=== PATIENT | male | born 1945 | race Caucasian/White ===

== ENCOUNTER 2020-08-15 09:56 | Inpatient (IN) | payer OTHER, SELFPAY ==
[2020-08-15] VITALS (20 sets, daily range): BP systolic 75–157; BP diastolic 43–83; PULSE 79–136; RESP 16–26; TEMP 36.1–37.4; O2SAT 90–100; BMI 18.9
--- NOTE | ~2020-08-15 | XR_ITS ---
XR chest 1V portable DATE: 08/15/2020 11:18 INDICATION: Shortness of breath TECHNIQUE: Portable AP chest on 08/15/2020 at 1114 hours COMPARISON: 09/25/2019 AP and lateral chest FINDINGS: Bilateral chronic upper lobe scarring volume loss with prominent bilateral apical capping. There are bilateral chronic upper lobe and right mid lung opacities which may be due to fibrotic tirado ge; pulmonary mass lesions are noted excluded. There is no significant change compared to 09/25/2019.. Bilateral hyperinflation consistent with COPD. Heart size normal. Aortic arch calcification. Right artem Cath again noted with tip at superior cavoatrial junction. Diffuse osteopenia. IMPRESSION: No significant change since 09/25/2019 Reviewed, dictated and finalized at location A. LANCE DIRECTOR
[2020-08-15] MEDS: PANTOPRAZOLE SODIUM IV 40 MG VIAL 80 MG IV PUSH (10:25)
[2020-08-15] MEDS: ONDANSETRON INJ 4 MG/2 ML VIAL IV PUSH (10:25)
[2020-08-15] MEDS: SODIUM CHLORIDE 0.9% IV 1,000 ML 999 ML IV CONT (10:25)
[2020-08-15 10:30] LABS: Mean Corpuscular HGB Conc 31.3 g/dl (32-36); Mean Corpuscular Hemoglobin 33.3 pg (26-34); Mean Corpuscular Volume 106.7 fl (80-100); Mean Platelet Volume 11.5 fl (7.4-10.4); Platelet Count Result 148 k/mm3 (150-375); Red Blood Count 1.35 M/mm3 (4.6-6.20); Red Cell Distribution Width 18.8 % (11.5-14.5); White Blood Count 21.5 K/mm3 (4.5-10.0)
[2020-08-15 10:33] LABS: Hematocrit 14.4 % (42.0-52.0); Hemoglobin 4.5 g/dL (14.0-18.0)
--- NOTE | 2020-08-15 10:39 | ECG_ITS ---
Measurements Intervals [place] Rate: 126 P: NC: 0 QRS: 78 QRSD: 76 T: 244 QT: 271 QTc: 394 Interpretive Statements ATRIAL FIBRILLATION WITH RAPID VENTRICULAR RESPONSE CANNOT RULE OUT SEPTAL INFARCT, AGE INDETERMINATE ST-T WAVE ABNORMALITY IN ANTEROLAT/INF LEADS- CONSIDER ISCHEMIA BASELINE ARTIFACT- II, III, AVF, V3-V6 ABNORMAL ECG Electronically Signed On 08-15-2020 14:26:51 DRIVER ENGINEER by Gordon Jones D.O.
[2020-08-15 10:42] LABS: Band Neutrophils Percent 3 % (0-6); Hypochromasia 2+ (NORMAL); Lymphocytes Absolute Manual 1.72 K/mm3 (1.1-4.5); Metamyelocytes Percent 2 %; Monocytes Absolute Manual 0.64 K/mm3 (0.1-0.90); Monocytes Percent Manual 3 % (3-9); Neutrophils Percent Manual 84 % (46-73); Nucleated Red Blood Cells 2 %; Platelet Estimate Adequate (Adequate); Total Cells Counted 100
[2020-08-15 10:57] LABS: Alanine Aminotransferase 20 U/L (4-50); Alkaline Phosphatase 69 U/L (38-126); Anion Gap 7 mmol/L (8-16); Aspartate Amino Transferase 32 U/L (17-59); Bilirubin,Total 0.2 mg/dL (0.2-1.3); Blood Urea Nitrogen 73 mg/dL (9-20); Calcium 8.4 mg/dL (8.4-10.2); Carbon Dioxide 36 mmol/L (22-30); Chloride 89 mmol/L (98-107); Estimated CRCL calculation 38 ml/min; Estimated Glomerular Filt Rate 54; Glucose 180 mg/dL (75-110); Potassium 4.8 mmol/L (3.4-5.0); Sodium 132 mmol/L (137-145)
--- NOTE | 2020-08-15 11:00 | ED.GENADULT ---
HPI - General Adult General Chief complaint: Shortness of Breath/Dyspnea Stated complaint: SOB Time Seen by Provider: 08/15/20 10:02 History of Present Illness HPI narrative: Patient is a 75-year-old male who presents ER with shortness of breath and weakness. Patient has been more short of breath over the last 2 days. He is chronically O2 dependent on 6 liters nasal cannula. He has history of lung cancer for which he sees oncology at [facility]. Began having dark black stools and was too weak to move so EMS was contacted. Found to be profoundly hypoxic and put on nonrebreather mask. Related Data Home Medications Medication Instructions Recorded Confirmed Centrum Silver 1 tablet PO DAILY 07/26/19 08/15/20 cholecalciferol (vitamin D3) 2,000 unit PO DAILY 07/26/19 02/27/20 thiamine HCl (vitamin B1) [Vitamin 100 mg PO DAILY 07/26/19 02/27/20 B-1] ascorbic acid (vitamin C) 1,000 mg PO DAILY 08/21/19 08/15/20 folic acid 1 mg PO DAILY 08/21/19 08/15/20 albuterol sulfate 2.5 mg INHALATION ONCE ml 08/29/19 02/27/20 dexamethasone 4 mg tablet 4 mg PO BID 02/20/20 02/27/20 fluticasone propionate 50 2 spray NASAL DAILY 02/27/20 02/27/20 mcg/actuation nasal spray,suspension montelukast 10 mg tablet 10 mg PO DAILY 05/21/20 hydrocortisone 08/15/20 Allergies Allergy/AdvReac Type Severity Reaction Status Date / Time No Known Allergies Allergy Verified 08/15/20 10:33 Review of Systems Review of Systems: All systems reviewed & are unremarkable except as noted in HPI and below Constitutional: Constitutional: Denies chills, Denies fever(s) and Reports weakness ENT: Denies nasal congestion and Denies sore throat Cardiovascular: Cardiovascular: Denies chest pain and Denies radiating jaw, neck or arm pain Respiratory: Respiratory: Denies cough, Reports dyspnea and Denies wheezing Gastrointestinal: Gastrointestinal: Reports abdominal pain, Denies nausea and Denies vomiting Comments: Dark black stools PMFSH Past Medical History Medical History Acute respiratory failure with hypoxia and hypercarbia 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 Alcohol withdrawal Former heavy drinker. Anxiety Atrial fibrillation with rapid ventricular response Benign prostatic hyperplasia CHF (congestive heart failure) CHF exacerbation Likely due to diastolic CHF complicated by high-output Chronic anemia With history of blood transfusions. Chronic atrial fibrillation On long-term anticoagulation with rivaroxaban. Chronic respiratory failure with hypoxia and hypercapnia On chronic home O2 8 L Colon polyp Congestive heart failure Last echocardiogram November 2018 demonstrated paradoxical septal wall motion consistent with IVCD or bundle branch block, EF of 50-55% diastolic dysfunction not assessed due to atrial fibrillation, mild right ventricular enlargement, mild enlargement of left atrium, mild mitral valve regurgitation, normal right ventricular systolic pressure 38, dilated IVC without respiratory collapse consistent with elevated right atrial pressure greater than 15 mmHg. Constipation COPD with acute exacerbation (Unknown) Depression End stage COPD Erectile dysfunction Non-small cell lung cancer He is a patient of Dr. Chad Jarvis at [facility]. Status post radiation and palliative chemotherapy. Chest CTs throughout 2019 have showed stable disease. Obstructive sleep apnea (adult) (pediatric) PNA (pneumonia) Pneumonia Psoriasis Shingles Tobacco abuse Surgical History Surgical History History of ankle surgery (~1997) Status post ORIF bilateral ankle fractures. History of appendectomy History of arthroscopy of left knee History of hip surgery Right trochanteric fracture with surgical repair. History of incisional hernia repair History of right hemicolectomy Secondary to large cecal polyp, found to be [place]
[2020-08-15] MEDS: SODIUM CHLORIDE 0.9% IV 250 ML 30 ML IV CONT (12:30)
[2020-08-15] MEDS: TUBING, BLOOD SET 1 EACH XX (12:30)
--- NOTE | 2020-08-15 13:22 | WPDGIPROGNO ---
Progress Note: A&P Additional Plan GI Daniel Consult dictated #[id number] PPI EGD in am [phone] Subjective Date/time seen: 08/15/20 13:22 Objective Data Vital Signs Vital Signs: Vital Signs - 24 hr 08/15/20 10:00 08/15/20 10:16 08/15/20 10:31 Temperature 36.4 C Pulse Rate 124 H 115 H 125 H Respiratory Rate 26 H 17 Blood Pressure 75/43 L 98/58 L Pulse Oximetry 100 98 08/15/20 12:15 08/15/20 12:28 08/15/20 12:45 Temperature 36.7 C 37.0 C Pulse Rate 117 H 113 H 100 Respiratory Rate 26 H 19 16 Blood Pressure 99/59 L 99/59 L 104/57 L Pulse Oximetry 100 100 100 Intake/Output Intake/Output: Intake & Output 08/12/20 08/13/20 08/14/20 08/15/20 23:59 23:59 23:59 23:59 Intake Total 1000 Balance 1000 Meds/Results Medications: Active Medications Generic Name Dose Route Start Last Admin Trade Name Freq PRN Reason Stop Dose Admin Fentanyl Citrate 50 mcg 08/15/20 11:00 Fentanyl Citrate Inj (*Crx) 100 Mcg/2 Ml Vial IV PUSH Q2H PRN Pain Rated 7-10 Pantoprazole Sodium 80 mg/ 500 mls @ 50 mls/hr 08/15/20 11:30 08/15/20 12:15 Dextrose IV CONT 08/18/20 11:31 50 mls/hr .Q10H DOT Administration Sodium Chloride 250 mls @ 30 mls/hr 08/15/20 10:33 08/15/20 12:30 Normal Saline Iv IV CONT 08/15/20 18:52 30 mls/hr .Q8H20M STA Administration Acetaminophen 1,000 mg in 100 mls @ 400 mls/hr 08/15/20 11:00 Ofirmev 1,000 Mg Ivpb IVPB 08/16/20 11:01 Q6H PRN Mild Pain (1-3) or Fever Ondansetron HCl 4 mg 08/15/20 11:00 Ondansetron Inj 4 Mg/2 Ml Vial IV PUSH Q4H PRN Nausea Radiology Results: ITS Impressions Chest X-Ray 08/15/20 11:20 IMPRESSION: No significant change since 09/25/2019 Labs Labs: Laboratory Results - last 24 hr 08/15/20 08/15/20 08/15/20 10:20 10:20 10:20 WBC 21.5 H RBC 1.35 L Hgb 4.5 L* D Hct 14.4 L* MCV 106.7 H MCH 33.3 MCHC 31.3 L RDW 18.8 H Plt Count 148 L D MPV 11.5 H Immature Gran % (Auto) Not Reportable Neut % (Auto) Not Reportable Lymph % (Auto) Not Reportable [place] % (Auto) Not Reportable Eos % (Auto) Not Reportable Baso % (Auto) Not Reportable Lymph # (Auto) Not Reportable [place] # (Auto) Not Reportable Eos # (Auto) Not Reportable Baso # (Auto) Not Reportable Abs Immat Gran (auto) Not Reportable Absolute Neuts (auto) Not Reportable Absolute Nucleated RBC Not Reportable Total Counted 100 Neutrophils % (Manual) 84 H Band Neutrophils % 3 Lymphocytes % (Manual) 8.0 L Monocytes % (Manual) 3 Metamyelocytes % 2 Nucleated RBC % Not Reportable Abs Neuts (Manual) 18.70 H Abs Lymphs (Manual) 1.72 Abs Monocytes (Manual) 0.64 Nucleated RBCs 2 Platelet Estimate Adequate Hypochromasia 2+ PT 14.0 INR 1.0 APTT 32.0 Sodium 132 L Potassium 4.8 Chloride 89 L Carbon Dioxide 36 H Anion Gap 7 L BUN 73 H D Creatinine 1.30 Estim Creat Clear Calc 38 Estimated GFR 54 L Glucose 180 H Calcium 8.4 Total Bilirubin 0.2 AST 32 ALT 20 Alkaline Phosphatase 69 Total Protein 5.0 L Albumin 3.0 L Blood Type Antibody Screen Crossmatch 08/15/20 10:20 WBC RBC Hgb Hct MCV MCH MCHC RDW Plt Count MPV Immature Gran % (Auto) Neut % (Auto) Lymph % (Auto) [place] % (Auto) Eos % (Auto) Baso % (Auto) Lymph # (Auto) [place] # (Auto) Eos # (Auto) Baso # (Auto) Abs Immat Gran (auto) Absolute Neuts (auto) Absolute Nucleated RBC Total Counted Neutrophils % (Manual) Band Neutrophils % Lymphocytes % (Manual) Monocytes % (Manual) Metamyelocytes % Nucleated RBC % Abs Neuts (Manual) Abs Lymphs (Manual) Abs Monocytes (Manual) Nucleated RBCs Platelet Estimate Hypochromasia PT INR APTT Sodium Potassium Chloride Carbon Dioxide Anion Gap BUN Creatinine Estim Creat Clear Calc E
--- NOTE | 2020-08-15 14:57 | ADMGEN ---
This patient, Mundo Robles, was admitted to IMU Room 205-01 at 1404. Patient/family oriented to hospital policies and general routines including ID bracelet, bed and alarms, visiting hours, pain management, procedures, bathroom and other care routines, personal items, smoking policy, room service/diet, and visiting hours. Information on how to activate the Rapid Response Team has been discussed. Patient/Family are encouraged to report perceived risks to care and to ask questions if they do not understand what they are told or what they should do.
--- NOTE | 2020-08-15 15:00 | PM.IMHP ---
H&P: HPI History of Present Illness Date/Time: 08/15/20 15:00 <Kiarra Seaman PA-C - Last Filed: 08/16/20 22:42> Chief complaint: Weakness and shortness of breath. <Kiarra Seaman PA-C - Last Filed: 08/16/20 22:42> Narrative: Mundo Robles is a 75-year-old male with stage IV adenocarcinoma of the lung status post radiation and palliative chemotherapy, severe COPD with chronic respiratory failure on home oxygen, paroxysmal atrial fibrillation on Xarelto, chronic anemia, and ongoing tobacco use who presented to the emergency department earlier today via EMS from home with complaints of shortness of breath and weakness. For the past couple of days or so he has been much more short of breath than at baseline with increasing weakness and occasional lightheadedness. On EMS arrival his SpO2 was 70% on 2 L nasal cannula, however at baseline he typically wears between 6 to 8 L. In any event he was found to be profoundly anemic and with further questioning he does admit that he has been passing dark stools for upwards of 1 month. He denies epigastric and abdominal pain as well as significant GERD symptoms and history of peptic ulcers, however he is quite tender to palpation epigastric region on exam. It is noted that he is on anticoagulation for atrial fibrillation, with his last dose being yesterday. At the time my evaluation he does not have a whole lot of complaints but has not gotten up and about since coming to the hospital so it is difficult for him to say whether not he is feeling any better. 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 <Kiarra Seaman PA-C - Last Filed: 08/16/20 22:42> Review of Systems Review of Systems: Narrative: Twelve systems were reviewed with pertinent positives and negatives as per HPI. He denies fever, chills, and sweats. No syncope or near syncope. He denies chest pain, palpitations, and feelings of racing heart. No pleuritic pain or lower extremity edema. He denies nausea and vomiting. No hematemesis. He is quite thin but states his weight has remained stable. Except as documented, all other systems were reviewed and are negative. 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 Alcohol withdrawal Former heavy drinker. Anxiety Atrial fibrillation with rapid ventricular response Benign prostatic hyperplasia Chronic anemia With history of blood transfusions. Chronic atrial fibrillation On long-term anticoagulation with rivaroxaban. Chronic respiratory failure with hypoxia and hypercapnia On chronic home O2 at 6 to 8 L. Colon polyp Congestive heart failure Last echocardiogram November 2018 demonstrated paradoxical septal wall motion consistent with IVCD or bundle branch block, EF of 50-55% diastolic dysfunction not assessed due to atrial fibrillation, mild right ventricular enlargement, mild enlargement of left atrium, mild mitral valve regurgitation, normal right ventricular systolic pressure 38, dilated IVC without respiratory collapse consistent with elevated right atrial pressure greater than 15 mmHg. Constipation Depression End stage COPD Erectile dysfunction Non-small cell lung cancer He is a patient of Dr. Chad Jarvis at [facility]. Status post radiation and palliative chemotherapy. Chest CTs throughout 2019 have showed stable disease. Obstructive sleep apnea Pneumonia Psoriasis Shingles Tobacco abuse <Kiarra Seaman PA-C - Last Filed: 08/16/20 22:42> Surgical History Surgical History: Surgical History History of ankle surgery (~1997) Status post ORIF bilateral ankle fractures. Hist
--- NOTE | 2020-08-15 16:36 | WPDANESEPP ---
Anes - Eval Pre Procedure Procedure: EGD Date/Time: 08/15/20 16:36 Surgeon: Daniel Pre Op Diagnosis: GI Bleed/Anemia/Hypoxia with COPD Patient Data Age: 75 Gender: M Height: 5 ft 11 in Weight: 61.6 kg Last Vital Signs Temp 99.3 F 08/15/20 15:10 Pulse 112 H 08/15/20 15:10 Resp 20 08/15/20 15:10 BP 105/59 L 08/15/20 15:10 Pulse Ox 100 08/15/20 15:10 Allergies Allergy/AdvReac Type Severity Reaction Status Date / Time No Known Allergies Allergy Verified 08/15/20 10:33 Home Medications Medication Instructions Recorded Confirmed Type Centrum Silver 1 tablet PO DAILY 07/26/19 02/27/20 History cholecalciferol (vitamin D3) 2,000 unit PO DAILY 07/26/19 02/27/20 History thiamine HCl (vitamin B1) [Vitamin 100 mg PO DAILY 07/26/19 02/27/20 History B-1] ascorbic acid (vitamin C) 1 mg PO DAILY 08/21/19 02/27/20 History folic acid 1 mg PO DAILY 08/21/19 02/27/20 History albuterol sulfate 2.5 mg INHALATION ONCE ml 08/29/19 02/27/20 History metoprolol tartrate 50 mg tablet 50 mg PO BID #180 tablet 12/01/19 02/27/20 Rx escitalopram oxalate 10 mg tablet 10 mg PO DAILY 30 Days #90 tablet 01/02/20 02/27/20 Rx dexamethasone 4 mg tablet 4 mg PO BID 02/20/20 02/27/20 History budesonide 0.5 mg/2 mL suspension 0.5 mg INHALATION BID #120 ml 02/27/20 02/27/20 Rx for nebulization fluticasone propionate 50 2 spray NASAL DAILY 02/27/20 02/27/20 History mcg/actuation nasal spray,suspension revefenacin 175 mcg/3 mL solution 175 mcg INHALATION DAILY #90 ml 02/27/20 02/27/20 Rx for nebulization arformoterol 15 mcg/2 mL solution See Rx Instructions .ROUTE 03/26/20 Rx for nebulization .COMPLEX #120 ml magnesium oxide 400 mg PO DAILY #30 cap 04/28/20 Rx diltiazem HCl 120 mg 120 mg PO BID #60 cap 05/12/20 Rx capsule,extended release 12 hr furosemide 40 mg tablet See Rx Instructions .ROUTE 05/12/20 Rx .COMPLEX #30 tablet rivaroxaban 20 mg tablet 20 mg PO QPM #30 tablet 05/12/20 Rx montelukast 10 mg tablet 10 mg PO DAILY 05/21/20 History albuterol sulfate 90 mcg/actuation 2 inhalation INHALATION Q4-6H PRN 05/22/20 Rx aerosol inhaler 90 Days #25.5 gm diphenoxylate-atropine 2.5 1 tablet PO BID PRN #60 tablet 07/07/20 Rx mg-0.025 mg tablet digoxin 125 mcg (0.125 mg) tablet See Rx Instructions .ROUTE 08/08/20 Rx .COMPLEX #30 tablet hydrocortisone 08/15/20 History Laboratory Tests 08/15/20 08/15/20 08/15/20 10:20 10:20 10:20 WBC 21.5 K/mm3 H K/mm3 (4.5-10.0) RBC 1.35 M/mm3 L M/mm3 (4.6-6.20) Hgb 4.5 g/dL L* D g/dL (14.0-18.0) Hct 14.4 % L* % (42.0-52.0) MCV 106.7 fl H fl (80-100) MCH 33.3 pg pg (26-34) MCHC 31.3 g/dl L g/dl (32-36) RDW 18.8 % H % (11.5-14.5) Plt Count 148 k/mm3 L D k/mm3 (150-375) MPV 11.5 fl H fl (7.4-10.4) Immature Gran % (Auto) Not Reportable Neut % (Auto) Not Reportable Lymph % (Auto) Not Reportable [place] % (Auto) Not Reportable Eos % (Auto) Not Reportable Baso % (Auto) Not Reportable Lymph # (Auto) Not Reportable [place] # (Auto) Not Reportable Eos # (Auto) Not Reportable Baso # (Auto) Not Reportable Abs Immat Gran (auto) Not Reportable Absolute Neuts (auto) Not Reportable Absolute Nucleated RBC Not Reportable Total Counted 100 Neutrophils % (Manual) 84 % H % (46-73) Band Neutrophils % 3 % % (0-6) Lymphocytes % (Manual) 8.0 % L % (18-44) Monocytes % (Manual) 3 % % (3-9) Metamyelocytes % 2 % % Nucleated RBC % Not Reportable Abs Neuts (Manual) 18.70 K/mm3 H K/mm3 (1.3-6.7) Abs Lymphs (Manual) 1.72 K/mm3 K/mm3 (1.1-4.5) Abs Monocytes (Manual) 0.64 K/mm3 K/mm3 (0.1-0.90) Nucleat
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
[2020-08-15] MEDS: MELATONIN 5 MG TABLET PO (23:59)
[2020-08-16] VITALS (35 sets, daily range): BP systolic 80–120; BP diastolic 51–69; PULSE 65–144; RESP 14–24; TEMP 36.3–37; O2SAT 91–100
[2020-08-16 00:03] LABS: Hematocrit 17.6 % (42.0-52.0); Hemoglobin 5.7 g/dL (14.0-18.0)
[2020-08-16] MEDS: DIGOXIN INJ 250 MCG/ML 2 ML AMP (*BKC) 125 MCG IV PUSH (04:04)
[2020-08-16] MEDS: LACTATED RINGERS 1,000 ML 150 ML IV CONT (07:20)
--- NOTE | 2020-08-16 07:27 | WPDANESEPPF ---
Anes - Initial Pre Proc Eval Procedure: Operation Date: 08/16/20 07:30 Proposed Procedures p Esophagogastroduodenoscopy/Stent Removal - Prateek Sanchez MD Date/Time: 08/16/20 07:27 Surgeon: Bowen Yi MD Pre Op Diagnosis: GI Bleed/Anemia/Hypoxia with COPD Patient Data Age: 75 Gender: M Height: 1.8 m Weight: 61.6 kg Last Vital Signs Temp 36.8 C 08/16/20 04:50 Pulse 102 H 08/16/20 06:00 Resp 20 08/16/20 04:50 BP 110/60 08/16/20 04:50 Pulse Ox 100 08/16/20 04:50 Allergies Allergy/AdvReac Type Severity Reaction Status Date / Time No Known Allergies Allergy Verified 08/15/20 10:33 Home Medications Medication Instructions Recorded Confirmed Type Centrum Silver 1 tablet PO DAILY 07/26/19 08/15/20 History cholecalciferol (vitamin D3) 2,000 unit PO DAILY 07/26/19 08/15/20 History thiamine HCl (vitamin B1) [Vitamin 100 mg PO DAILY 07/26/19 08/15/20 History B-1] ascorbic acid (vitamin C) 1,000 mg PO DAILY 08/21/19 08/15/20 History folic acid 1 mg PO DAILY 08/21/19 08/15/20 History albuterol sulfate 2.5 mg INHALATION DAILY ml 08/29/19 08/15/20 History metoprolol tartrate 50 mg tablet 50 mg PO BID #180 tablet 12/01/19 08/15/20 Rx escitalopram oxalate 10 mg tablet 10 mg PO DAILY 30 Days #90 tablet 01/02/20 08/15/20 Rx dexamethasone 4 mg tablet 4 mg PO BID 02/20/20 08/15/20 History budesonide 0.5 mg/2 mL suspension 0.5 mg INHALATION BID #120 ml 02/27/20 08/15/20 Rx for nebulization fluticasone propionate 50 2 spray NASAL DAILY 02/27/20 08/15/20 History mcg/actuation nasal spray,suspension revefenacin 175 mcg/3 mL solution 175 mcg INHALATION DAILY #90 ml 02/27/20 08/15/20 Rx for nebulization arformoterol 15 mcg/2 mL solution See Rx Instructions .ROUTE 03/26/20 08/15/20 Rx for nebulization .COMPLEX #120 ml magnesium oxide 400 mg PO DAILY #30 cap 04/28/20 08/15/20 Rx diltiazem HCl 120 mg 120 mg PO BID #60 cap 05/12/20 08/15/20 Rx capsule,extended release 12 hr rivaroxaban 20 mg tablet 20 mg PO QPM #30 tablet 05/12/20 08/15/20 Rx montelukast 10 mg tablet 10 mg PO DAILY 05/21/20 08/15/20 History albuterol sulfate 90 mcg/actuation 2 inhalation INHALATION Q4-6H PRN 05/22/20 08/15/20 Rx aerosol inhaler 90 Days #25.5 gm diphenoxylate-atropine 2.5 1 tablet PO BID PRN #60 tablet 07/07/20 08/15/20 Rx mg-0.025 mg tablet digoxin 125 mcg PO DAILY 08/15/20 08/15/20 History furosemide 40 mg PO DAILY 08/15/20 08/15/20 History hydrocortisone 5 mg PO DAILY 08/15/20 08/15/20 History Laboratory Tests 08/15/20 08/15/20 08/15/20 10:20 10:20 10:20 WBC 21.5 K/mm3 H K/mm3 (4.5-10.0) RBC 1.35 M/mm3 L M/mm3 (4.6-6.20) Hgb 4.5 g/dL L* D g/dL (14.0-18.0) Hct 14.4 % L* % (42.0-52.0) MCV 106.7 fl H fl (80-100) MCH 33.3 pg pg (26-34) MCHC 31.3 g/dl L g/dl (32-36) RDW 18.8 % H % (11.5-14.5) Plt Count 148 k/mm3 L D k/mm3 (150-375) MPV 11.5 fl H fl (7.4-10.4) Immature Gran % (Auto) Not Reportable Neut % (Auto) Not Reportable Lymph % (Auto) Not Reportable [place] % (Auto) Not Reportable Eos % (Auto) Not Reportable Baso % (Auto) Not Reportable Lymph # (Auto) Not Reportable [place] # (Auto) Not Reportable Eos # (Auto) Not Reportable Baso # (Auto) Not Reportable Abs Immat Gran (auto) Not Reportable Absolute Neuts (auto) Not Reportable Absolute Nucleated RBC Not Reportable Total Counted 100 Neutrophils % (Manual) 84 % H % (46-73) Band Neutrophils % 3 % % (0-6) Lymphocytes % (Manual) 8.0 % L % (18-44) Monocytes % (Manual) 3 % % (3-9) Metamyelocytes % 2 % % Nucleated RBC % Not Reportable Abs Neuts (Manual) 18.70 K/mm3 H K/mm3 (1.3-6.7) A
[2020-08-16 07:31] LABS: Hemoglobin A1C 5.5 % (<5.7)
--- NOTE | 2020-08-16 07:31 | WPDANESEFPP ---
Anes - Eval Final PreProcedure Day of Procedure 08/16/20 07:31 Patient weight: thin Heart: irregular rhythm Lungs: clear to auscultation and decreased breath sounds Airway: Mallampati scale class III Neurological: alert and oriented Last oral intake: >/= 8 hours ASA classification: IV Emergent: yes Anesthetic plan: proceed Anesthesia type and monitoring: general GIVS and standard monitoring Informed Consent: The patient's anesthetic plan and its attendant risks and benefits were discussed with the patient/family/POA. Questions were solicited and answers provided to the satisfaction of the patient/family/POA.
--- NOTE | 2020-08-16 07:38 | WPDGIPROGNO ---
Progress Note: A&P Additional Plan GI [facility] 16 Aug 2020 No abdominal pain, nausea or vomiting. Patient had large bloody BM @ 7 am VSS soft/NT Hct (8 pm 08-15-2020) 18 ASSESSMENT AND PLAN: A. Acute on chronic blood loss anemia with melena and macrocytosis on Xarelto and hydrocortisone: - Concern for upper GI source of bleeding with patient on steroids and no GI prophylaxis - Possibilities include ulceration, AVM, malignancy and varices given his drinking history - No LFTs are available - Follow H and H and transfuse as needed - Patient had 2 units PRBC since last Hct and repeat is pending - Acid suppression with PPI - Avoid aspirin, nonsteroidals and anticoagulants - EGD this am B. Macrocytosis: - Possibly due to alcohol - B12 and folate pending Further recommendations after EGD. Thanks, [facility] [phone] Subjective Date/time seen: 08/16/20 07:38 Objective Data Vital Signs Vital Signs: Vital Signs - 24 hr 08/15/20 10:00 08/15/20 10:16 08/15/20 10:31 Temperature 36.4 C Pulse Rate 124 H 115 H 125 H Pulse Rate [Bilateral Pedal (Dorsalis Pedis) Palpation] Respiratory Rate 26 H 17 Blood Pressure 75/43 L 98/58 L Pulse Oximetry 100 98 08/15/20 12:15 08/15/20 12:28 08/15/20 12:45 Temperature 36.7 C 37.0 C Pulse Rate 117 H 113 H 100 Pulse Rate [Bilateral Pedal (Dorsalis Pedis) Palpation] Respiratory Rate 26 H 19 16 Blood Pressure 99/59 L 99/59 L 104/57 L Pulse Oximetry 100 100 100 08/15/20 13:45 08/15/20 13:50 08/15/20 13:52 Temperature 36.7 C 36.7 C 36.7 C Pulse Rate 115 H 111 H 111 H Pulse Rate [Bilateral Pedal (Dorsalis Pedis) Palpation] Respiratory Rate 16 16 16 Blood Pressure 111/61 111/61 111/61 Pulse Oximetry 99 98 99 08/15/20 14:48 08/15/20 15:10 08/15/20 16:00 Temperature 37.4 C 37.4 C Pulse Rate 112 H 110 H Pulse Rate [Bilateral Pedal (Dorsalis Pedis) Palpation] Respiratory Rate 20 20 Blood Pressure 105/59 L 105/59 L Pulse Oximetry 100 08/15/20 17:16 08/15/20 17:32 08/15/20 18:00 Temperature 36.2 C L 36.1 C L Pulse Rate 126 H 116 H 136 H Pulse Rate [Bilateral Pedal (Dorsalis Pedis) Palpation] Respiratory Rate 22 H 20 Blood Pressure 101/58 L 122/80 Pulse Oximetry 100 100 08/15/20 18:32 08/15/20 19:34 08/15/20 20:00 Temperature 37.1 C 37.0 C 36.3 C L Pulse Rate 116 H 115 H 114 H Pulse Rate [Bilateral Pedal (Dorsalis Pedis) Palpation] Respiratory Rate 20 20 20 Blood Pressure 105/55 L 118/83 157/77 H Pulse Oximetry 100 100 100 08/15/20 22:00 08/15/20 22:55 08/16/20 00:00 Temperature 36.3 C L Pulse Rate 112 H 116 H 138 H Pulse Rate [Bilateral Pedal (Dorsalis Pedis) Palpation] Respiratory Rate 22 H 18 Blood Pressure 117/57 L Pulse Oximetry 98 100 08/16/20 00:49 08/16/20 01:36 08/16/20 01:53 Temperature 36.4 C 36.9 C Pulse Rate 125 H 133 H Pulse Rate [Bilateral Pedal (Dorsalis Pedis) Palpation] 112 H Respiratory Rate 18 16 Blood Pressure 117/68 97/60 L Pulse Oximetry 100 100 08/16/20 02:00 08/16/20 03:27 08/16/20 03:50 Temperature 36.8 C 36.8 C Pulse Rate 123 H 109 H 117 H Pulse Rate [Bilateral Pedal (Dorsalis Pedis) Palpation] Respiratory Rate 20 20 Blood Pressure 117/69 104/61 Pulse Oximetry 100 100 08/16/20 04:00 08/16/20 04:04 08/16/20 04:50 Temperature 36.8 C Pulse Rate 114 H 124 H 114 H Pulse Rate [Bilateral Pedal (Dorsalis Pedis) Palpation] 114 H Respiratory Rate 20 Blood Pressure 104/61 110/60 Pulse Oximetry 100 100 08/16/20 06:00 Temperature Pulse Rate 102 H Pulse Rate [Bilateral Pedal (Dorsalis Pedis) Palpation] Respiratory Rate Blood Pressure Pulse Oximetry Intake/Output Intake/Output: Intake & Output 08/13/20 08/14/20 08/15/20 08/16/20 23:59 23:59 23:59 23:59 Intake Total 1700 700 Output Total 150 150 Balance 1550 550 Meds/Results Medications: Active Medications Generic Name Dose Route Start Last Admin Trade Name Freq PRN Reason St
[2020-08-16] MEDS: SIMETHICONE ORAL SUSPENSION 20 MG/0.3 ML 30 ML BOTTLE PO (08:07)
--- NOTE | 2020-08-16 08:32 | PM.OP ---
Procedure Note - Brief Procedure Note - Brief Date of procedure: 08/16/20 Pre-op diagnosis: GI Bleed/Anemia/Hypoxia with COPD Surgeon: PRATEEK SANCHEZ MD, FACG, FACP UPPER ENDOSCOPY 08-16-2020 INDICATION: Acute on chronic blood loss anemia with melena and macrocytosis on Xarelto and hydrocortisone. 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 SEDATION: Per anesthesia With the patient in the left lateral decubitus position, the [place] upper endoscope was used to easily intubate the patient?s esophagus and advanced to the third portion of the duodenum. Careful inspection of the mucosa was made upon insertion and withdrawal of the endoscope with retroflexion in the stomach. FINDINGS: Esophagus: SC Jx at 45 cm. Esophagus is normal. No varix, esophagitis, stricture, mass or Charles?s. Stomach: Fundus: had clot with what appeared to be active bleed. The clot was removed with a net and active bleed noted. Epi 1 cc x 5 injected circumferentially around where the bleeding appeared to originate. There was slowing of the bleeding and I was able to suction the blood and noted an actively bleeding Dielafoy lesion. This lesion was treated with the placement of a single Endoclip with complete cessation of bleeding. The lesion was observed with washing for minutes without rebleed. Body and antrum normal. No ulceration, erosion, inflammation, AVM or malignancy. Duodenum: Normal in the bulb, second and third portion. No complications. EBL: minimal. Implant of single Endoclip. ASSESSMENT AND PLAN: A. Acute on chronic blood loss anemia with melena and macrocytosis on Xarelto and hydrocortisone: - Secondary to gastric Dieulafoy lesion treated with Epi and Endoclip with cessation of bleed - Follow H and H and transfuse as needed - Patient had 2 units PRBC since last Hct and repeat is pending (total of 4 U PRBC so far) - Acid suppression with PPI; continue drip through today - Avoid aspirin, nonsteroidals and anticoagulants - Clears only today; advance am 08-17-2020 if stable B. Macrocytosis: - Possibly due to alcohol - B12 and folate pending Prateek Sanchez M.D. [phone]
[2020-08-16 08:40] LABS: Folic Acid > 20.0 ng/mL (2.76->20)
[2020-08-16 09:11] LABS: Digoxin 1.1 ng/mL (0.8-2.0)
[2020-08-16] MEDS: THIAMINE HCL 100 MG TABLET PO (09:43)
[2020-08-16] MEDS: FOLIC ACID 1 MG TABLET PO (09:44)
[2020-08-16] MEDS: MULTIVITAMINS /C LUTEIN (CENTRUM SILVER) TABLET *BKC 1 TAB PO (09:44)
[2020-08-16] MEDS: FUROSEMIDE 40 MG TABLET PO (09:44)
[2020-08-16] MEDS: FLUTICASONE PROPIONATE 0.05% NA SPR 16 GM BTL (*BKC) 2 SPRAY NASAL (09:44)
[2020-08-16] MEDS: MAGNESIUM OXIDE 400 MG TABLET PO (09:44)
[2020-08-16] MEDS: MONTELUKAST SODIUM 10 MG TABLET PO (09:44)
[2020-08-16] MEDS: ESCITALOPRAM OXALATE 10 MG TABLET PO (09:45)
[2020-08-16] MEDS: CHOLECALCIFEROL 1,000 UNITS TABLET 2000 UNITS PO (09:45)
[2020-08-16] MEDS: DIGOXIN TAB 125 MCG TABLET PO (09:45)
[2020-08-16] MEDS: DEXAMETHASONE 4 MG TABLET PO ×2 (09:46→16:48)
[2020-08-16] MEDS: HYDROCORTISONE 5 MG TABLET PO (09:46)
[2020-08-16] MEDS: ASCORBIC ACID 500 MG TABLET 1000 MG PO (09:46)
[2020-08-16] MEDS: ALBUTEROL SULFATE NEB 2.5 MG/3 ML INH INHALATION (09:56)
[2020-08-16] MEDS: BUDESONIDE RESPULE NEB 0.5 MG/2 ML AMP INHALATION ×2 (09:57→21:42)
[2020-08-16 10:07] LABS: Hematocrit 21.6 % (42.0-52.0); Hemoglobin 7.4 g/dL (14.0-18.0); Mean Corpuscular HGB Conc 34.3 g/dl (32-36); Mean Corpuscular Hemoglobin 31.1 pg (26-34); Mean Corpuscular Volume 90.8 fl (80-100); Mean Platelet Volume 10.7 fl (7.4-10.4); Platelet Count Result 109 k/mm3 (150-375); Red Blood Count 2.38 M/mm3 (4.6-6.20); Red Cell Distribution Width 17.4 % (11.5-14.5); White Blood Count 20.5 K/mm3 (4.5-10.0)
[2020-08-16 10:30] LABS: Alanine Aminotransferase 16 U/L (4-50); Albumin Level 2.4 g/dL (3.5-5.1); Alkaline Phosphatase 55 U/L (38-126); Anion Gap 1 mmol/L (8-16); Aspartate Amino Transferase 43 U/L (17-59); Bilirubin,Total 0.2 mg/dL (0.2-1.3); Blood Urea Nitrogen 77 mg/dL (9-20); Calcium 7.9 mg/dL (8.4-10.2); Carbon Dioxide 37 mmol/L (22-30); Chloride 94 mmol/L (98-107); Estimated CRCL calculation 34 ml/min; Estimated Glomerular Filt Rate 46; Glucose 148 mg/dL (75-110); Magnesium 1.9 mg/dL (1.6-2.3); Potassium 4.7 mmol/L (3.4-5.0); Sodium 132 mmol/L (137-145)
[2020-08-16 11:10] LABS: Iron 79 ug/dL (49-181)
[2020-08-16 11:19] LABS: Percent Iron Saturation 28 % (20-50)
[2020-08-16] MEDS: METOPROLOL TARTRATE 50 MG TAB PO ×2 (11:34→21:44)
--- NOTE | 2020-08-16 17:12 | PM.IMPN ---
Progress Note: A&P Assessment and Plan (1) Profound anemia: Code(s): D64.9 - Anemia, unspecified Status: Acute Assessment and Plan: 08/16/20 17:12 Patient is 75-year-old male with a history of stage IV adenocarcinoma of the lung patient is seen at the [facility] status post radiation and palliative chemotherapy, atrial fibrillation for which patient taking Xarelto, patient with severe COPD with respiratory failure on home oxygen patient had been tired fatigue with complaint melena he presented emergency department was found to have profound anemia with hemoglobin of 4.5 patient was given 2 units PRBC emergently and patient was seen by GI and and had a EGD which showed blood clot which was removed and showed active bleeding it was treated with epinephrine upon close evaluation there was slow bleed from Dielafoy lesion and the lesion was treated by placing single Endoclip which resolve the bleeding. Patient has received total of 4 units of pack RBC his current H&H is 7.4 will monitor q.6, patient is placed on PPI, Xarelto is on hold, will avoid NSAIDs however patient is on Decadron for his chemotherapy we have consulted oncologist further recommendation, will continue to monitor appreciate GI and oncologist (2) GI bleed: Code(s): K92.2 - Gastrointestinal hemorrhage, unspecified Status: Acute Assessment and Plan: Plan is above (3) Atrial fibrillation with rapid ventricular response: Code(s): I48.91 - Unspecified atrial fibrillation Status: Acute Assessment and Plan: Rate is controlled will hold Xarelto (4) Acute and chronic respiratory failure with hypoxia: Code(s): J96.21 - Acute and chronic respiratory failure with hypoxia Status: Acute Assessment and Plan: Clinically stable with profound anemia will monitor (5) End stage COPD: Code(s): J44.9 - Chronic obstructive pulmonary disease, unspecified Status: Acute Assessment and Plan: Will continue updraft and oxygen (6) Congestive heart failure: Code(s): I50.9 - Heart failure, unspecified Status: Inactive Assessment and Plan: Clinically stable does not appear volume overloaded patient is received 4 units of pack RBC will monitor closely (7) Tobacco abuse: Code(s): Z72.0 - Tobacco use Status: Chronic Assessment and Plan: Will encourage stop smoking (8) Leukocytosis: Code(s): D72.829 - Elevated white blood cell count, unspecified Status: Acute Assessment and Plan: Most likely due to stress, on Decadron will monitor (9) Non-small cell lung cancer: Qualifiers: Laterality: unspecified laterality Qualified Code(s): C34.90 - Malignant neoplasm of unspecified part of unspecified bronchus or lung Code(s): C34.90 - Malignant neoplasm of unspecified part of unspecified bronchus or lung Status: Chronic Assessment and Plan: Patient is seen by oncologist and radiation and palliative therapy Additional Plan The patient has been admitted to the hospitalist service for further evaluation of profound anemia, felt to be secondary to an upper GI bleed with reports of dark stools and significantly elevated BUN. He is currently receiving 2 units of packed red blood cells and we will repeat hemoglobin and hematocrit thereafter. He has been started on a Protonix drip and Dr. Sanchez (gastroenterology) has been consulted for his expert opinion. I suspect he will be taken for EGD in the morning thus he will be NPO after midnight. His white count is quite elevated at 21 and he gives no history to suggest underlying infection. He is on dexamethasone daily, which could be the culprit. May be reactive as well. Will check urinalysis for completeness sake and continue to monitor for now. We will need to monitor his volume status closely while being transfused. His heart rate has improved with blood transfusion and we will co
[2020-08-16 20:25] LABS: Hematocrit 19.5 % (42.0-52.0); Hemoglobin 6.6 g/dL (14.0-18.0)
[2020-08-16] MEDS: MELATONIN 5 MG TABLET PO (21:44)
[2020-08-17] VITALS (19 sets, daily range): BP systolic 80–99; BP diastolic 51–60; PULSE 54–94; RESP 16–18; TEMP 36.2–37.1; O2SAT 93–100
[2020-08-17 02:39] LABS: Hematocrit 22.8 % (42.0-52.0); Hemoglobin 7.7 g/dL (14.0-18.0)
[2020-08-17 06:05] LABS: Basophils Percent Auto 0.1 % (0.2-1.2); Hematocrit 23.7 % (42.0-52.0); Hemoglobin 7.7 g/dL (14.0-18.0); Immature Granulocyte Absolute 0.16 K/mm3 (0.00-0.031); Immature Granulocyte Percent A 1.5 % (0-0.5); Lymphocytes Absolute Auto 0.38 K/mm3 (0.9-3.2); Lymphocytes Percent Auto 3.6 % (18.3-44.2); Mean Corpuscular HGB Conc 32.5 g/dl (32-36); Mean Corpuscular Hemoglobin 29.5 pg (26-34); Mean Corpuscular Volume 90.8 fl (80-100); Mean Platelet Volume 11.5 fl (7.4-10.4); Monocytes Absolute Auto 0.2 K/mm3 (0.1-0.6); Monocytes Percent Auto 2.2 % (2.6-8.5); Neutrophils Absolute Auto 9.7 K/mm3 (1.3-6.7); Neutrophils Percent Auto 92.6 % (45.5-73.1); Nucleated Red Blood Cells Absolute Auto 0.2 K/mm3 (0.0-0.012); Nucleated Red Blood Cells Perc 1.6 % (0.0-0.2); Platelet Count Result 151 k/mm3 (150-375); Red Blood Count 2.61 M/mm3 (4.6-6.20); White Blood Count 10.5 K/mm3 (4.5-10.0)
[2020-08-17 06:48] LABS: Alanine Aminotransferase 16 U/L (4-50); Albumin Level 2.5 g/dL (3.5-5.1); Alkaline Phosphatase 56 U/L (38-126); Anion Gap 1.99999 mmol/L (8-16); Aspartate Amino Transferase 43 U/L (17-59); Bilirubin,Total 0.3 mg/dL (0.2-1.3); Blood Urea Nitrogen 56 mg/dL (9-20); Calcium 8.4 mg/dL (8.4-10.2); Carbon Dioxide > 40 mmol/L (22-30); Chloride 92 mmol/L (98-107); Estimated CRCL calculation 51 ml/min; Estimated Glomerular Filt Rate > 60; Glucose 140 mg/dL (75-110); Potassium 4.1 mmol/L (3.4-5.0); Sodium 134 mmol/L (137-145)
--- NOTE | 2020-08-17 07:15 | WPDANESPN ---
Anes - Prog Note Post-Op Date/Time: 08/17/20 07:15 Cardiovascular status: normal (patient received 4 units PRBC, hgb 7.7. monitoring H/H) Respiratory status: normal (on baseline O2. ) Airway patency: baseline Mental status: baseline Post-Op hydration status: normal Vital Signs: Last Vital Signs Temp 36.4 C L 08/17/20 04:00 Pulse 76 08/17/20 06:00 Resp 16 08/17/20 04:00 BP 93/52 L 08/17/20 04:00 Pulse Ox 100 08/17/20 04:00 Pain Score (VAS): 0 I/O: Intake & Output 08/16/20 08/16/20 08/17/20 15:59 23:59 07:59 Intake Total 806 248 1326 Output Total 1000 725 Balance -330 -485 1037 Laboratory Tests 08/17/20 05:03 08/15/20 08/16/20 08/16/20 10:20 06:34 06:34 WBC RBC Hgb Hct MCV MCH MCHC RDW Plt Count MPV Immature Gran % (Auto) Neut % (Auto) Lymph % (Auto) [place] % (Auto) Eos % (Auto) Baso % (Auto) Lymph # (Auto) [place] # (Auto) Eos # (Auto) Baso # (Auto) Abs Immat Gran (auto) Absolute Neuts (auto) Absolute Nucleated RBC Nucleated RBC % Sodium Potassium Chloride Carbon Dioxide Anion Gap BUN Creatinine Estim Creat Clear Calc Estimated GFR Glucose Hemoglobin A1c 5.5 Calcium Magnesium Iron TIBC % Saturation Ferritin Total Bilirubin AST ALT Alkaline Phosphatase Total Protein Albumin Vitamin B12 Folate Digoxin 1.1 Blood Type O Positive Antibody Screen Negative Crossmatch See Detail 08/16/20 08/16/20 08/16/20 06:34 09:57 09:57 WBC 20.5 H RBC 2.38 L Hgb 7.4 L Hct 21.6 L MCV 90.8 D MCH 31.1 D MCHC 34.3 RDW 17.4 H Plt Count 109 L MPV 10.7 H Immature Gran % (Auto) Neut % (Auto) Lymph % (Auto) [place] % (Auto) Eos % (Auto) Baso % (Auto) Lymph # (Auto) [place] # (Auto) Eos # (Auto) Baso # (Auto) Abs Immat Gran (auto) Absolute Neuts (auto) Absolute Nucleated RBC Nucleated RBC % Sodium 132 L Potassium 4.7 Chloride 94 L Carbon Dioxide 37 H Anion Gap 1 L BUN 77 H Creatinine 1.50 H Estim Creat Clear Calc 34 Estimated GFR 46 L Glucose 148 H Hemoglobin A1c Calcium 7.9 L Magnesium 1.9 Iron TIBC % Saturation Ferritin Total Bilirubin 0.2 AST 43 ALT 16 Alkaline Phosphatase 55 Total Protein 4.0 L Albumin 2.4 L Vitamin B12 890.0 Folate > 20.0 H Digoxin Blood Type Antibody Screen Crossmatch 08/16/20 08/16/20 08/17/20 09:57 20:10 02:31 WBC RBC Hgb 6.6 L* 7.7 L Hct 19.5 L* 22.8 L MCV MCH MCHC RDW Plt Count MPV Immature Gran % (Auto) Neut % (Auto) Lymph % (Auto) [place] % (Auto) Eos % (Auto) Baso % (Auto) Lymph # (Auto) [place] # (Auto) Eos # (Auto) Baso # (Auto) Abs Immat Gran (auto) Absolute Neuts (auto) Absolute Nucleated RBC Nucleated RBC % Sodium Potassium Chloride Carbon Dioxide Anion Gap BUN Creatinine Estim Creat Clear Calc Estimated GFR Glucose Hemoglobin A1c Calcium Magnesium Iron 79 TIBC 283 % Saturation 28 Ferritin 93.00 Total Bilirubin AST ALT Alkaline Phosphatase Total Protein Albumin Vitamin B12 Folate Digoxin Blood Type Antibody Screen Crossmatch 08/17/20 08/17/20 05:03 05:03 WBC Pending RBC Pending Hgb Pending Hct Pending MCV Pending MCH Pending MCHC Pending RDW Pending Plt Count Pending MPV Pending Immature Gran % (Auto) Pending Neut % (Auto) Pending Lymph % (Auto) Pending [place] % (Auto) Pending Eos % (Auto) Pending Baso % (Auto) Pending Lymph # (Auto) Pending [place] # (Auto) Pending Eos # (Auto) Pending Baso # (Auto) Pending Abs Immat Gran (auto) Pending Absolute Neuts (auto) Pendi
[2020-08-17] MEDS: MULTIVITAMINS /C LUTEIN (CENTRUM SILVER) TABLET *BKC 1 TAB PO (10:13)
[2020-08-17] MEDS: THIAMINE HCL 100 MG TABLET PO (10:13)
[2020-08-17] MEDS: FUROSEMIDE 40 MG TABLET PO (10:14)
[2020-08-17] MEDS: FOLIC ACID 1 MG TABLET PO (10:14)
[2020-08-17] MEDS: METOPROLOL TARTRATE 50 MG TAB PO ×2 (10:14→20:30)
[2020-08-17] MEDS: MAGNESIUM OXIDE 400 MG TABLET PO (10:14)
[2020-08-17] MEDS: MONTELUKAST SODIUM 10 MG TABLET PO (10:14)
[2020-08-17] MEDS: ESCITALOPRAM OXALATE 10 MG TABLET PO (10:15)
[2020-08-17] MEDS: FLUTICASONE PROPIONATE 0.05% NA SPR 16 GM BTL (*BKC) 2 SPRAY NASAL (10:15)
[2020-08-17] MEDS: DIGOXIN TAB 125 MCG TABLET PO (10:15)
[2020-08-17] MEDS: CHOLECALCIFEROL 1,000 UNITS TABLET 2000 UNITS PO (10:15)
[2020-08-17] MEDS: ASCORBIC ACID 500 MG TABLET 1000 MG PO (10:15)
[2020-08-17] MEDS: HYDROCORTISONE 5 MG TABLET PO (10:16)
[2020-08-17] MEDS: DEXAMETHASONE 4 MG TABLET PO ×2 (10:16→17:34)
[2020-08-17] MEDS: BUDESONIDE RESPULE NEB 0.5 MG/2 ML AMP INHALATION (10:44)
[2020-08-17] MEDS: ALBUTEROL SULFATE NEB 2.5 MG/3 ML INH INHALATION (10:45)
--- NOTE | 2020-08-17 11:19 | WPDONCCN ---
Assessment and Plan Assessment and plan (1) GI bleed: Code(s): K92.2 - Gastrointestinal hemorrhage, unspecified Status: Acute Assessment and Plan: due to upper GI lesion successfully treated by EGD (2) Non-small cell lung cancer: Qualifiers: Laterality: unspecified laterality Qualified Code(s): C34.90 - Malignant neoplasm of unspecified part of unspecified bronchus or lung Code(s): C34.90 - Malignant neoplasm of unspecified part of unspecified bronchus or lung Status: Chronic Assessment and Plan: no further need of oncology or hematology interventions during this admission He should f/u with Dr. Jarvis as scheduled. I will contact Dr. Jarvis to update him on his patient (3) Anemia: Qualifiers: Anemia type: unspecified type Qualified Code(s): D64.9 - Anemia, unspecified Code(s): D64.9 - Anemia, unspecified Status: Chronic Assessment and Plan: improved due to GI bleeding no evidence of hemolysis or BM disorder I would send him on [id number] bid to improve his H/H can be discharge from my perspective HPI Data of Consult Date/Time: 08/17/20 11:19 Requesting Physician: Bowen Yi MD Primary Care Provider: Daniel Jeffery MD Consult Narrative Narrative: Mundo Robles is a 75 year old male with stage IV lung cancer undergoing maintenance chemo by Dr. Jarvis. He presented with symptomatic anemia along with melena. Dr. Sanchez performed EGD on Tuesday revealing bleeding Duelofoy lesion in the upper GI tract. He sclerosed the lesion. At this consultation, he is wanting to go home. He feels great and improved. Review of Systems Review of Systems: All systems reviewed & are unremarkable except as noted in HPI and below Constitutional: Constitutional: Denies anorexia, Denies fatigue, Denies fever(s), Denies malaise, Denies night sweats, Reports snoring, Denies weakness and Denies weight loss Eyes: Eyes: Denies blurry vision ENT: Denies dysphagia, Denies epistaxis, Denies mouth lesions, Denies mouth pain, Denies odynophagia, Denies disequilibrium and Denies sore throat Cardiovascular: Cardiovascular: Denies chest pain, Denies leg edema and Denies dyspnea Respiratory: Respiratory: Reports chest congestion, Reports cough, Reports dyspnea and Reports wheezing Gastrointestinal: Gastrointestinal: Denies abdominal pain, Denies constipation, Denies dysphagia, Denies diarrhea, Denies nausea, Denies odynophagia and Denies vomiting Genitourinary: Genitourinary: Denies hematuria and Denies dysuria Musculoskeletal: Musculoskeletal: Denies myalgias, Denies arthralgias and Denies muscle weakness Integumentary/Breasts: Skin/Breast: Denies rash Neurologic: Denies confusion, Denies disequilibrium and Denies weakness Psychiatric: Psychiatric: Denies anxiety, Denies confusion and Denies depression Endocrine: Endocrine: Denies fatigue Hematologic/Lymphatic: Hematologic/Lymphatic: Denies easy bleeding, Reports easy bruising and Denies lymphadenopathy [facility] Past Medical History Medical History 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 Alcohol withdrawal Former heavy drinker. Anxiety Atrial fibrillation with rapid ventricular response Benign prostatic hyperplasia Chronic anemia With history of blood transfusions. Chronic atrial fibrillation On long-term anticoagulation with rivaroxaban. Chronic respiratory failure with hypoxia and hypercapnia On chronic home O2 at 6 to 8 L. 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
--- NOTE | 2020-08-17 15:32 | PM.IMPN ---
Progress Note: A&P Assessment and Plan (1) Profound anemia: Code(s): D64.9 - Anemia, unspecified Status: Acute Assessment and Plan: 08/17/20 15:32 Patient is 75-year-old male with a history of stage IV adenocarcinoma of the lung patient is seen at the [facility] status post radiation and palliative chemotherapy, atrial fibrillation for which patient taking Xarelto, patient with severe COPD with respiratory failure on home oxygen patient had been tired fatigue with complaint melena he presented emergency department was found to have profound anemia with hemoglobin of 4.5 patient was given 2 units PRBC emergently and patient was seen by GI and and had a EGD which showed blood clot which was removed and showed active bleeding it was treated with epinephrine upon close evaluation there was slow bleed from Dielafoy lesion and the lesion was treated by placing single Endoclip which resolve the bleeding. Patient has received total of 4 units of pack RBC his current H&H is 7.4 will monitor q.6, patient is placed on PPI, Xarelto is on hold, will avoid NSAIDs however patient is on Decadron for his chemotherapy we have consulted oncologist further recommendation, will continue to monitor appreciate GI and oncologist. today patient stats feeling better denies any bleeding and wants to go home, patient started on oral PPI, iron, will monitor 1 more day and monitor cbc, patient is seen by oncologist no further workup is needed, patient will be seen by GI and further recommendation to follow. if clinically stable, will discharge home tomorrow. (2) GI bleed: Code(s): K92.2 - Gastrointestinal hemorrhage, unspecified Status: Acute Assessment and Plan: Plan is above (3) Atrial fibrillation with rapid ventricular response: Code(s): I48.91 - Unspecified atrial fibrillation Status: Acute Assessment and Plan: Rate is controlled will hold Xarelto (4) Acute and chronic respiratory failure with hypoxia: Code(s): J96.21 - Acute and chronic respiratory failure with hypoxia Status: Acute Assessment and Plan: Clinically stable with profound anemia will monitor (5) End stage COPD: Code(s): J44.9 - Chronic obstructive pulmonary disease, unspecified Status: Acute Assessment and Plan: Will continue updraft and oxygen (6) Congestive heart failure: Code(s): I50.9 - Heart failure, unspecified Status: Inactive Assessment and Plan: Clinically stable does not appear volume overloaded patient is received 4 units of pack RBC will monitor closely (7) Tobacco abuse: Code(s): Z72.0 - Tobacco use Status: Chronic Assessment and Plan: Will encourage stop smoking (8) Leukocytosis: Code(s): D72.829 - Elevated white blood cell count, unspecified Status: Acute Assessment and Plan: Most likely due to stress, on Decadron will monitor (9) Non-small cell lung cancer: Qualifiers: Laterality: unspecified laterality Qualified Code(s): C34.90 - Malignant neoplasm of unspecified part of unspecified bronchus or lung Code(s): C34.90 - Malignant neoplasm of unspecified part of unspecified bronchus or lung Status: Chronic Assessment and Plan: Patient is seen by oncologist and radiation and palliative therapy Subjective Date/time seen: 08/17/20 15:32 Patient is 75-year-old male with a history of stage IV adenocarcinoma of the lung patient is seen at the [facility] status post radiation and palliative chemotherapy, atrial fibrillation for which patient taking Xarelto, patient with severe COPD with respiratory failure on home oxygen patient had been tired fatigue with complaint melena he presented emergency department was found to have profound anemia with hemoglobin of 4.5 patient was given 2 units PRBC emergently and patient was seen by GI and and had a EGD which showed blood clot which was
--- NOTE | 2020-08-17 17:33 | PC.NURSE ---
This patient, Mundo Robles, was transferred to [facility] on 08/17/20 at 1710. Personal belongings sent with patient. Report given to Celena CHAU. Appropriate documentation sent with patient.
--- NOTE | 2020-08-17 18:54 | PC.NURSE ---
Transfer received from IMU room 205 to room 250.
--- NOTE | 2020-08-17 19:55 | WPDGIPROGNO ---
Progress Note: A&P Additional Plan KEITH Sanchez 17 Aug 2020 No AP, N, V, BRBPR, melena. Lia po VSS soft/NT Hct 24. B12 890, folate >20, Ferritin 93, Fe 79, TIBC 283, %sat 28. LFT normal ASSESSMENT AND PLAN: A. Acute on chronic blood loss anemia with melena and macrocytosis on Xarelto and hydrocortisone: - Secondary to gastric Dieulafoy lesion treated with Epi and Endoclip with cessation of bleed - No further active bleed - Follow H and H and transfuse as needed - Patient had 2 units PRBC since last Hct and repeat is pending (total of 4 U PRBC so far) - Acid suppression with PPI-> po Protonix 40 mg po daily x 1 month - Avoid aspirin, nonsteroidals and anticoagulants B. Macrocytosis: - Possibly due to alcohol - B12 and folate normal No further GI recommendations. Dispo per others. Patient can follow-up with GI prn. Prateek Sanchez M.D. [phone] Subjective Date/time seen: 08/17/20 19:55 Objective Data Vital Signs Vital Signs: Vital Signs - 24 hr 08/16/20 20:00 08/16/20 21:32 08/16/20 21:44 Temperature 36.3 C L Pulse Rate 84 85 79 Respiratory Rate 18 16 Blood Pressure 90/56 L Pulse Oximetry 100 08/16/20 21:46 08/16/20 22:00 08/16/20 22:10 Temperature Pulse Rate 80 80 97 Respiratory Rate 15 Blood Pressure Pulse Oximetry 97 08/16/20 23:17 08/16/20 23:39 08/17/20 00:00 Temperature 37.0 C 36.4 C Pulse Rate 85 76 72 Respiratory Rate 18 18 Blood Pressure 88/52 L 80/53 L Pulse Oximetry 100 100 100 08/17/20 00:39 08/17/20 02:00 08/17/20 04:00 Temperature 36.9 C 36.4 C L Pulse Rate 65 70 62 Respiratory Rate 18 16 Blood Pressure 80/51 L 93/52 L Pulse Oximetry 100 100 08/17/20 06:00 08/17/20 08:00 08/17/20 10:00 Temperature 36.2 C L Pulse Rate 76 84 73 Respiratory Rate 18 Blood Pressure 98/53 L Pulse Oximetry 100 08/17/20 10:14 08/17/20 10:15 08/17/20 10:49 Temperature Pulse Rate 84 83 80 Respiratory Rate 16 Blood Pressure Pulse Oximetry 97 08/17/20 11:13 08/17/20 12:00 08/17/20 16:00 Temperature 36.2 C L Pulse Rate 72 82 70 Respiratory Rate 16 18 Blood Pressure 99/60 L Pulse Oximetry 100 08/17/20 17:16 08/17/20 18:00 Temperature 36.5 C Pulse Rate 84 72 Respiratory Rate 16 Blood Pressure 94/54 L Pulse Oximetry 100 Intake/Output Intake/Output: Intake & Output 08/14/20 08/15/20 08/16/20 08/17/20 23:59 23:59 23:59 23:59 Intake Total 1700 1610 2190 Output Total 150 1875 1200 Balance 1550 -265 990 Meds/Results Medications: Active Medications Generic Name Dose Route Start Last Admin Trade Name Freq PRN Reason Stop Dose Admin Acetazolamide 125 mg 08/17/20 09:00 08/17/20 12:16 Acetazolamide Tab 125 Mg Tablet PO 08/18/20 08:00 125 mg QAM DOT Administration Albuterol 2.5 mg 08/16/20 09:00 08/17/20 10:45 Albuterol Sulfate Neb 2.5 Mg/3 Ml Inh INHALATION 2.5 mg DAILY DOT Administration Albuterol 2 puff 08/16/20 00:52 Albuterol Sulfate (*Sp) Aerosol 1 Puff INHALATION Q4-6H PRN shortness of breath or wheezing Ascorbic Acid 1,000 mg 08/16/20 09:00 08/17/20 10:15 Ascorbic Acid 500 Mg Tablet PO 1,000 mg DAILY DOT Administration Budesonide 0.5 mg 08/16/20 09:00 08/17/20 10:44 Budesonide Respule Neb 0.5 Mg/2 Ml Amp INHALATION 0.5 mg BID DOT Administration Dexamethasone 4 mg 08/16/20 08:00 08/17/20 17:34 Dexamethasone 4 Mg Tablet PO 4 mg BIDWM DOT Administration Digoxin 125 mcg 08/16/20 09:00 08/17/20 10:15 Digoxin Tab 125 Mcg Tablet PO 125 mcg DAILY DOT Administration Diltiazem HCl 120 mg 08/16/20 09:00 08/16/20 09:45 Diltiazem Hcl 12 Hr 60 Mg Cap.Er.12h PO 120 mg Q12HR DOT Administration Escitalopram Oxalate 10 mg 08/16/20 09:00 08/17/20 10:15 Escitalopram Oxalate 10 Mg Tablet PO 10 mg DAILY DOT Administration Fluticasone Propionate 2 spray 08/16/20 09:00 08/17/20 10:15 Fluticasone Propiona
[2020-08-17] MEDS: MELATONIN 5 MG TABLET PO (20:30)
[2020-08-18] VITALS (10 sets, daily range): BP systolic 102–108; BP diastolic 60–65; PULSE 76–98; RESP 16–18; TEMP 36.6–36.8; O2SAT 100
[2020-08-18] MEDS: CENTRAL LINE FLUSH 10 ML IV PUSH ×2 (06:07→12:30)
[2020-08-18 06:25] LABS: Basophils Percent Auto 0.2 % (0.2-1.2); Hematocrit 24.3 % (42.0-52.0); Hemoglobin 7.7 g/dL (14.0-18.0); Immature Granulocyte Absolute 0.21 K/mm3 (0.00-0.031); Lymphocytes Absolute Auto 0.32 K/mm3 (0.9-3.2); Mean Corpuscular HGB Conc 31.7 g/dl (32-36); Mean Corpuscular Hemoglobin 30.1 pg (26-34); Mean Corpuscular Volume 94.9 fl (80-100); Mean Platelet Volume 10.8 fl (7.4-10.4); Monocytes Absolute Auto 0.4 K/mm3 (0.1-0.6); Monocytes Percent Auto 4.1 % (2.6-8.5); Neutrophils Absolute Auto 9.8 K/mm3 (1.3-6.7); Neutrophils Percent Auto 90.7 % (45.5-73.1); Nucleated Red Blood Cells Absolute Auto 0.2 K/mm3 (0.0-0.012); Nucleated Red Blood Cells Perc 2.2 % (0.0-0.2); Platelet Count Result 220 k/mm3 (150-375); Red Blood Count 2.56 M/mm3 (4.6-6.20); Red Cell Distribution Width 17.5 % (11.5-14.5); White Blood Count 10.8 K/mm3 (4.5-10.0)
[2020-08-18 06:37] LABS: Alanine Aminotransferase 18 U/L (4-50); Albumin Level 2.7 g/dL (3.5-5.1); Alkaline Phosphatase 57 U/L (38-126); Anion Gap 1.99999 mmol/L (8-16); Aspartate Amino Transferase 40 U/L (17-59); Bilirubin,Total 0.2 mg/dL (0.2-1.3); Blood Urea Nitrogen 42 mg/dL (9-20); Calcium 8.7 mg/dL (8.4-10.2); Carbon Dioxide > 40 mmol/L (22-30); Chloride 92 mmol/L (98-107); Estimated CRCL calculation 50 ml/min; Estimated Glomerular Filt Rate > 60; Glucose 137 mg/dL (75-110); Sodium 134 mmol/L (137-145)
[2020-08-18 07:29] LABS: Anisocytosis 2+ (NORMAL); Hypochromasia 1+ (NORMAL); Ovalocytes 1+ (NORMAL); Platelet Estimate Adequate (Adequate); Target Cells 1+ (NORMAL)
[2020-08-18 07:30] LABS: Basophilic Stippling 1+ (NORMAL)
--- NOTE | 2020-08-18 08:30 | WPDGIPROGNO ---
Progress Note: A&P Assessment and Plan (1) Dieulafoy lesion (hemorrhagic) of stomach and duodenum: Code(s): K31.82 - Dieulafoy lesion (hemorrhagic) of stomach and duodenum Status: Acute Assessment and Plan: Patient hemodynamically stable. Had Dieulafoy's lesion clipped over the weekend. Currently appears stable. Plan to advance diet discharge when okay with others. No GI follow-up anticipated. (2) Emphysema/COPD: Qualifiers: Emphysema type: unspecified Qualified Code(s): J43.9 - Emphysema, unspecified Code(s): J43.9 - Emphysema, unspecified Status: Acute (3) Atrial fibrillation with RVR: Code(s): I48.91 - Unspecified atrial fibrillation Status: Acute Subjective Date/time seen: 08/18/20 08:30 Patient comfortable this morning. Anxious to go home. No additional bleeding reported. No pain reported. Review of Systems Review of Systems: All systems reviewed & are unremarkable except as noted in HPI and below Exam Narrative: Exam Narrative: Vital signs stable. HEENT exam unremarkable. Patient is anicteric. Lungs are clear. Heart without murmur. Abdomen bowel sounds are present soft nontender. Objective Data Vital Signs Vital Signs: Vital Signs - 24 hr 08/17/20 10:00 08/17/20 10:14 08/17/20 10:15 Temperature Pulse Rate 73 84 83 Respiratory Rate Blood Pressure Pulse Oximetry 08/17/20 10:49 08/17/20 11:13 08/17/20 12:00 Temperature 97.2 F L Pulse Rate 80 72 82 Respiratory Rate 16 16 18 Blood Pressure 99/60 L Pulse Oximetry 97 100 08/17/20 16:00 08/17/20 17:16 08/17/20 18:00 Temperature 97.7 F Pulse Rate 70 84 72 Respiratory Rate 16 Blood Pressure 94/54 L Pulse Oximetry 100 08/17/20 20:00 08/17/20 20:30 08/17/20 22:00 Temperature 98.8 F Pulse Rate 77 94 54 L Respiratory Rate 16 Blood Pressure 93/54 L Pulse Oximetry 93 100 08/17/20 22:20 08/18/20 00:00 08/18/20 02:00 Temperature 97.9 F Pulse Rate 97 78 Respiratory Rate 16 Blood Pressure 108/65 Pulse Oximetry 99 100 08/18/20 04:00 08/18/20 06:00 Temperature 98.1 F Pulse Rate 79 90 Respiratory Rate 16 Blood Pressure 102/62 Pulse Oximetry 100 Intake/Output Intake/Output: Intake & Output 08/15/20 08/16/20 08/17/20 08/18/20 23:59 23:59 23:59 23:59 Intake Total 1700 1610 2190 300 Output Total 150 1875 1200 500 Balance 1550 -265 990 -200 Meds/Results Medications: Active Medications Generic Name Dose Route Start Last Admin Trade Name Freq PRN Reason Stop Dose Admin Acetazolamide 125 mg 08/18/20 09:00 Acetazolamide Tab 125 Mg Tablet PO 08/19/20 08:00 QAM DOT Albuterol 2.5 mg 08/16/20 09:00 08/17/20 10:45 Albuterol Sulfate Neb 2.5 Mg/3 Ml Inh INHALATION 2.5 mg DAILY DOT Administration Albuterol 2 puff 08/16/20 00:52 Albuterol Sulfate (*Sp) Aerosol 1 Puff INHALATION Q4-6H PRN shortness of breath or wheezing Ascorbic Acid 1,000 mg 08/16/20 09:00 08/17/20 10:15 Ascorbic Acid 500 Mg Tablet PO 1,000 mg DAILY DOT Administration Budesonide 0.5 mg 08/16/20 09:00 08/17/20 10:44 Budesonide Respule Neb 0.5 Mg/2 Ml Amp INHALATION 0.5 mg BID DOT Administration Dexamethasone 4 mg 08/16/20 08:00 08/17/20 17:34 Dexamethasone 4 Mg Tablet PO 4 mg BIDWM DOT Administration Digoxin 125 mcg 08/16/20 09:00 08/17/20 10:15 Digoxin Tab 125 Mcg Tablet PO 125 mcg DAILY DOT Administration Diltiazem HCl 120 mg 08/16/20 09:00 08/16/20 09:45 Diltiazem Hcl 12 Hr 60 Mg Cap.Er.12h PO 120 mg Q12HR DOT Administration Escitalopram Oxalate 10 mg 08/16/20 09:00 08/17/20 10:15 Escitalopram Oxalate 10 Mg Tablet PO 10 mg DAILY DOT Administration Fluticasone Propionate 2 spray 08/16/20 09:00 08/17/20 10:15 Fluticasone Propionate 0.05% Na Spr 16 Gm Btl (*Bkc) NASAL 2 spray DAILY DOT Administration Folic Acid 1 mg 08/16/20 09:
[2020-08-18] MEDS: MONTELUKAST SODIUM 10 MG TABLET PO (08:51)
[2020-08-18] MEDS: MULTIVITAMINS /C LUTEIN (CENTRUM SILVER) TABLET *BKC 1 TAB PO (08:51)
[2020-08-18] MEDS: HYDROCORTISONE 5 MG TABLET PO (08:51)
[2020-08-18] MEDS: ESCITALOPRAM OXALATE 10 MG TABLET PO (08:51)
[2020-08-18] MEDS: THIAMINE HCL 100 MG TABLET PO (08:51)
[2020-08-18] MEDS: DIGOXIN TAB 125 MCG TABLET PO (08:51)
[2020-08-18] MEDS: ASCORBIC ACID 500 MG TABLET 1000 MG PO (08:51)
[2020-08-18] MEDS: CHOLECALCIFEROL 1,000 UNITS TABLET 2000 UNITS PO (08:52)
[2020-08-18] MEDS: MAGNESIUM OXIDE 400 MG TABLET PO (08:52)
[2020-08-18] MEDS: FOLIC ACID 1 MG TABLET PO (08:52)
[2020-08-18] MEDS: FUROSEMIDE 40 MG TABLET PO (08:52)
[2020-08-18] MEDS: DEXAMETHASONE 4 MG TABLET PO (08:52)
[2020-08-18] MEDS: PANTOPRAZOLE 40 MG TABLET PO (08:52)
[2020-08-18] MEDS: FLUTICASONE PROPIONATE 0.05% NA SPR 16 GM BTL (*BKC) 2 SPRAY NASAL (08:53)
[2020-08-18] MEDS: METOPROLOL TARTRATE 50 MG TAB PO (08:53)
[2020-08-18] MEDS: BUDESONIDE RESPULE NEB 0.5 MG/2 ML AMP INHALATION (09:57)
--- NOTE | 2020-08-18 11:45 | PM.DS ---
DS: Admitting Diagnosis Admitting Diagnosis Admitting Diagnosis: Weakness and shortness of breath. DS: Discharge Diagnosis Discharge Diagnosis (1) Profound anemia: Code(s): D64.9 - Anemia, unspecified Status: Acute Assessment and Plan: 08/17/20 15:32 Patient is 75-year-old male with a history of stage IV adenocarcinoma of the lung patient is seen at the [facility] status post radiation and palliative chemotherapy, atrial fibrillation for which patient taking Xarelto, patient with severe COPD with respiratory failure on home oxygen patient had been tired fatigue with complaint melena he presented emergency department was found to have profound anemia with hemoglobin of 4.5 patient was given 2 units PRBC emergently and patient was seen by GI and and had a EGD which showed blood clot which was removed and showed active bleeding it was treated with epinephrine upon close evaluation there was slow bleed from Dielafoy lesion and the lesion was treated by placing single Endoclip which resolve the bleeding. Patient has received total of 4 units of pack RBC his current H&H is 7.4 will monitor q.6, patient is placed on PPI, Xarelto is on hold, will avoid NSAIDs however patient is on Decadron for his chemotherapy we have consulted oncologist further recommendation, will continue to monitor appreciate GI and oncologist. today patient stats feeling better denies any bleeding and wants to go home, patient started on oral PPI, iron, will monitor 1 more day and monitor cbc, patient is seen by oncologist no further workup is needed, patient will be seen by GI and further recommendation to follow. if clinically stable, will discharge home tomorrow. (2) GI bleed: Code(s): K92.2 - Gastrointestinal hemorrhage, unspecified Status: Acute Assessment and Plan: Plan is above (3) Atrial fibrillation with rapid ventricular response: Code(s): I48.91 - Unspecified atrial fibrillation Status: Acute Assessment and Plan: Rate is controlled will hold Xarelto (4) Acute and chronic respiratory failure with hypoxia: Code(s): J96.21 - Acute and chronic respiratory failure with hypoxia Status: Acute Assessment and Plan: Clinically stable with profound anemia will monitor (5) End stage COPD: Code(s): J44.9 - Chronic obstructive pulmonary disease, unspecified Status: Acute Assessment and Plan: Will continue updraft and oxygen (6) Congestive heart failure: Code(s): I50.9 - Heart failure, unspecified Status: Inactive Assessment and Plan: Clinically stable does not appear volume overloaded patient is received 4 units of pack RBC will monitor closely (7) Tobacco abuse: Code(s): Z72.0 - Tobacco use Status: Chronic Assessment and Plan: Will encourage stop smoking (8) Leukocytosis: Code(s): D72.829 - Elevated white blood cell count, unspecified Status: Acute Assessment and Plan: Most likely due to stress, on Decadron will monitor (9) Non-small cell lung cancer: Qualifiers: Laterality: unspecified laterality Qualified Code(s): C34.90 - Malignant neoplasm of unspecified part of unspecified bronchus or lung Code(s): C34.90 - Malignant neoplasm of unspecified part of unspecified bronchus or lung Status: Chronic Assessment and Plan: Patient is seen by oncologist and radiation and palliative therapy DS: Summary Hospital Course Reason for hospitalization: Mundo Robles is a 75-year-old male with stage IV adenocarcinoma of the lung status post radiation and palliative chemotherapy, severe COPD with chronic respiratory failure on home oxygen, paroxysmal atrial fibrillation on Xarelto, chronic anemia, and ongoing tobacco use who presented to the emergency department earlier today via EMS from home with complaints of shortness of breath and weakness. For the past couple of days or so he h
[2020-08-18] MEDS: HEPARIN SOD FLUSH 500 UNITS/5 ML SYRINGE IV PUSH (12:31)
--- NOTE | 2020-08-18 13:42 | PC.NURSE ---
called and reviewed discharge instructions with her as well per pt request
== END 2020-08-18 13:42 | disposition home or self-care (01) | DRG 377 ==
LOC: ANHED 10:21 → ANHIMU 16:46 → ANH2MED 08-18 11:45 → ANH3MEDSUR 08-21 12:09 → ANHIMU 08-21 12:09
PROVIDERS: Internal Medicine Gastroenterology; Physician Assistant; Admitting Provider Family Medicine; Emergency Provider Emergency Medicine; PCP Family Medicine; Visit Provider Family Medicine
PROC: 0W3P8ZZ Control Bleeding in Gastrointestinal Tract, Via Natural or Artificial Opening Endoscopic (ICD-10-PCS; CPT 43266; principal; 2020-08-16 07:30)
DX: K31.82 Dieulafoy lesion (hemorrhagic) of stomach and duodenum (principal); J96.21 Acute and chronic respiratory failure with hypoxia; J96.22 Acute and chronic respiratory failure with hypercapnia; D62 Acute posthemorrhagic anemia; C34.90 Malignant neoplasm of unspecified part of unspecified bronchus or lung; J96.12 Chronic respiratory failure with hypercapnia; I48.20 Chronic atrial fibrillation, unspecified; J43.9 Emphysema, unspecified; D75.89 Other specified diseases of blood and blood-forming organs; N40.0 Benign prostatic hyperplasia without lower urinary tract symptoms; L40.9 Psoriasis, unspecified; G47.33 Obstructive sleep apnea (adult) (pediatric); D72.829 Elevated white blood cell count, unspecified; F41.8 Other specified anxiety disorders; F17.210 Nicotine dependence, cigarettes, uncomplicated; Z79.01 Long term (current) use of anticoagulants; Z99.81 Dependence on supplemental oxygen; Z90.81 Acquired absence of spleen
CPT/HCPCS: 36415; 36430; 71045; 80053; 80162; 82607; 82728; 82746; 83036; 83540; 83550; 83735; 85014; 85018; 85025; 85027; 85610; 85730; 86850; 86900; 86901; 86923; 93005; 94640; 96361; 96374; 96375; 96376; 99285; A9270; C9113; J0171; J1160; J1642; J2250; J2405; J2704; J7030; J7050; J7060; J7120; J8540; P9016

== ENCOUNTER 2020-08-20 16:14 | Emergency (ER) | payer OTHER, SELFPAY ==
[2020-08-20] VITALS (18 sets, daily range): BP systolic 83–118; BP diastolic 33–78; PULSE 54–82; RESP 12–20; TEMP 36.4–36.8; O2SAT 94–100
--- NOTE | ~2020-08-20 | XR_ITS ---
EXAMINATION: XR chest 1V portable DATE: 08/20/2020 17:00 INDICATION: Shortness of breath. TECHNIQUE: A single frontal view of the chest was obtained. COMPARISON: Chest single view 08/15/2020, chest CT 06/05/2019, chest 2 views 09/25/2019 FINDINGS: There are chronic airspace opacities at the lung apices and in superior segment right lower lobe with volume loss, consistent with scarring. There are airspace opacities in right lower lobe. T here are lucencies in the lungs, consistent with emphysema. No pleural effusion or pneumothorax. The heart size is normal. Calcified bilateral hilar lymph nodes are consistent with old granulomatous dis ease. There is a right internal jugular port with tip at superior cavoatrial junction. IMPRESSION: 1. Chronic scarring involving the upper lobes and superior segment right lower lobe. 2. Airspace opacities in right lower lobe with slight improvement, consistent with atelectasis/scarri ng versus pneumonia. 3. Emphysema. Reviewed, dictated and finalized at location A. UTER SUPPORT SPECIALIST IMPRESSION: 1. Chronic scarring involving the upper lobes and superior segment right lower lobe. 2. Airspace opacities in right lower lobe with slight improvement, consistent w ith atelectasis/scarring versus pneumonia. 3. Emphysema.
[2020-08-20 16:49] LABS: Basophils Percent Auto 0.1 % (0.2-1.2); Eosinophils Percent Auto 0.1 % (0-4.4); Hematocrit 26.5 % (42.0-52.0); Hemoglobin 8.4 g/dL (14.0-18.0); Immature Granulocyte Absolute 0.25 K/mm3 (0.00-0.031); Immature Granulocyte Percent A 1.6 % (0-0.5); Lymphocytes Absolute Auto 0.52 K/mm3 (0.9-3.2); Lymphocytes Percent Auto 3.4 % (18.3-44.2); Mean Corpuscular HGB Conc 31.7 g/dl (32-36); Mean Corpuscular Hemoglobin 31.2 pg (26-34); Mean Corpuscular Volume 98.5 fl (80-100); Mean Platelet Volume 10.1 fl (7.4-10.4); Monocytes Absolute Auto 2.1 K/mm3 (0.1-0.6); Neutrophils Absolute Auto 12.4 K/mm3 (1.3-6.7); Neutrophils Percent Auto 80.8 % (45.5-73.1); Nucleated Red Blood Cells Absolute Auto 0.4 K/mm3 (0.0-0.012); Nucleated Red Blood Cells Perc 2.7 % (0.0-0.2); Platelet Count Result 320 k/mm3 (150-375); Red Blood Count 2.69 M/mm3 (4.6-6.20); Red Cell Distribution Width 17.7 % (11.5-14.5); White Blood Count 15.3 K/mm3 (4.5-10.0)
[2020-08-20 17:03] LABS: Platelet Estimate Adequate (Adequate)
[2020-08-20 17:04] LABS: Hypochromasia 2+ (NORMAL)
[2020-08-20 17:05] LABS: INR 0.9; Prothrombin Time 12.6 Seconds (11.1-14.7); Stomatocytes 1+ (NORMAL); Target Cells 1+ (NORMAL)
[2020-08-20 17:06] LABS: Partial Thromboplastin Time 27.6 SECONDS (22.3-36.8)
[2020-08-20 17:08] LABS: Alanine Aminotransferase 20 U/L (4-50); Alkaline Phosphatase 66 U/L (38-126); Aspartate Amino Transferase 38 U/L (17-59); Bilirubin,Total 0.3 mg/dL (0.2-1.3); Blood Urea Nitrogen 24 mg/dL (9-20); Calcium 8.6 mg/dL (8.4-10.2); Carbon Dioxide > 40 mmol/L (22-30); Chloride 90 mmol/L (98-107); Estimated CRCL calculation 49 ml/min; Estimated Glomerular Filt Rate > 60; Glucose 103 mg/dL (75-110); Potassium 3.9 mmol/L (3.4-5.0); Sodium 133 mmol/L (137-145)
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
[2020-08-20] MEDS: SODIUM CHLORIDE 0.9% IV 250 ML 30 ML IV CONT (19:05)
[2020-08-20 21:22] LABS: Hematocrit 30.2 % (42.0-52.0); Hemoglobin 9.6 g/dL (14.0-18.0)
== END 2020-08-20 21:52 | disposition home or self-care (01) ==
PROVIDERS: Emergency Medicine; Emergency Medicine Emergency Medical Services; Emergency Provider Emergency Medicine; PCP Family Medicine
DX: K92.1 Melena (principal); F17.210 Nicotine dependence, cigarettes, uncomplicated; E27.40 Unspecified adrenocortical insufficiency; F41.9 Anxiety disorder, unspecified; I48.91 Unspecified atrial fibrillation; N40.0 Benign prostatic hyperplasia without lower urinary tract symptoms; I50.9 Heart failure, unspecified; Z99.81 Dependence on supplemental oxygen; F32.9 Major depressive disorder, single episode, unspecified; J44.9 Chronic obstructive pulmonary disease, unspecified
CPT/HCPCS: 36415; 36430; 71045; 80053; 85014; 85018; 85025; 85610; 85730; 86850; 86900; 86901; 86923; 96360; 96361; 99285; J7050; P9016

== ENCOUNTER 2020-09-29 14:14 | Outpatient (CLI) | payer OTHER, SELFPAY | END 2020-09-29 14:15 | disposition home or self-care (01) | LOC: ANHAUDIO 14:17 → ANHAUDASC 14:30 | PROVIDERS: PCP Family Medicine; Visit Provider Nurse Practitioner Family | DX: H90.3 Sensorineural hearing loss, bilateral (principal) | CPT/HCPCS: 92557; 92567 ==

== ENCOUNTER 2020-10-01 09:33 | Inpatient (IN) | payer OTHER, SELFPAY ==
[2020-10-01] VITALS (39 sets, daily range): BP systolic 81–131; BP diastolic 56–84; PULSE 96–136; RESP 13–30; TEMP 36.5–36.7; O2SAT 87–100; BMI 19.3
--- NOTE | ~2020-10-01 | US_ITS ---
EXAMINATION: US venous doppler [facility] EXAM DATE: 10/02/2020 13:20 INDICATION: Pulmonary embolism. TECHNIQUE: Multiple grayscale, color flow and Doppler images of the lower extremity deep venous syste ms bilaterally were obtained and reviewed. Comparison is made to prior examination from 12/10/2017. FINDINGS: Right side: The right common femoral, femoral and profunda veins demonstrate normal color flow, respi ratory variation, augmentation and compressibility. Compressibility, color flow confirmed within the right popliteal, posterior tibial, peroneal, and greater saphenous veins. Left side: The left common femoral, femoral and profunda veins demonstrate normal color flow, respira tory variation, augmentation and compressibility. Compressibility, color flow confirmed within the l eft popliteal, posterior tibial, peroneal, and greater saphenous veins. IMPRESSION: 1. No lower extremity deep venous thrombosis bilaterally. Reviewed, dictated and finalized at location B. OVOLTAIC TESTING TECHNICIAN
--- NOTE | ~2020-10-01 | CT_ITS ---
EXAMINATION: CTA chest PE protocol DATE: 10/01/2020 17:09 INDICATION: Chest pain. Shortness of breath. TECHNIQUE: Computed tomography angiography (CTA) of the chest was performed with 100 mL Omnipaque-350 intravenous contrast timed to evaluate the pulmonary arteries. Coronal maximum intensity projection 3D-reconstructions were created by the technologist. Automated exposure control and iterative reconst ruction technique were employed. The dose-length product was 271.83 mGy-cm. COMPARISON: Chest CT 06/05/2019 FINDINGS: There is moderate emphysema. There are chronic airspace opacities with volume loss and pare nchymal calcifications in left upper lobe. There are chronic airspace opacities with volume loss and varicose bronchiectasis in right upper lobe. There are chronic peripheral airspace opacities in right lower lobe with volume loss. There is mucous plugging in right lower lobe. There are small pleural e ffusions. The heart size is normal. There are coronary artery calcifications. No pericardial effusion . Calcified mediastinal and hilar lymph nodes are consistent with old granulomatous disease. There is mixing of opacified and unopacified blood in right lung distally. There are filling defects in the p ulmonary arteries in right upper lobe, left upper lobe, and right lower lobe. There is a right financial services intern al jugular port with tip in right atrium. There are bridging endplate osteophytes at multiple levels in the spine, consistent with diffuse idiopathic skeletal hyperostosis (DISH). There is severe cervic al and lumbar spondylosis. IMPRESSION: 1. Pulmonary emboli in right upper lobe, left upper lobe, and right lower lobe. 2. Stable scarring in the upper lobes and right lower lobe. 3. Mucous plugging in right lung lower lobe. 4. Moderate emphysema. 5. Small pleural effusions. Reviewed, dictated and finalized at location A. DCAST PROGRAM DIRECTOR
--- NOTE | ~2020-10-01 | XR_ITS ---
EXAMINATION: XR chest 1V portable EXAM DATE: 10/01/2020 10:32 INDICATION: Shortness of breath, left lateral chest pain. TECHNIQUE: Portable AP frontal chest x-ray was obtained. Comparison is made to prior examination from 08/20/2020, 09/25/2019. FINDINGS: Large amount of biapical capping, chronic, with adjacent upper lobe scarring. There is righ t-sided portacatheter. Some chronic hyperinflation with flattened diaphragm. Heart is upper limits of normal in size. Scattered chronic regions of scarring suspected without evidence of superimposed acu te airspace disease. No pneumothorax. There is no significant interval change. IMPRESSION: 1. Chronic lung findings unchanged. Reviewed, dictated and finalized at location B. O ANNOUNCER
--- NOTE | 2020-10-01 09:48 | ECG_ITS ---
Measurements Intervals [place] Rate: 111 P: AR: 0 QRS: 72 QRSD: 82 T: -50 QT: 234 QTc: 319 Interpretive Statements ATRIAL FIBRILLATION WITH RAPID VENTRICULAR RESPONSE LOW QRS VOLTAGE IN LIMB LEADS ANTEROSEPTAL INFARCT, AGE INDETERMINATE BASELINE ARTIFACT- I, II, III, AVR, AVL, AVF ABNORMAL ECG Electronically Signed On 10-01-2020 12:02:56 PRODUCTION LEADER by Gordon Jones D.O.
[2020-10-01 10:14] LABS: Alveolar/Arterial O2 Gradient 413.4 mmHg; Carboxyhemoglobin 1.8 % THb (0-2.0); Fractional Inspired Oxygen 100 %; HCO3 ABG 37.9 mEq/l (22.0-26.0); Methemoglobin ABG 0.1 %THb (0-1.5); Oxygen Content ABG 12.5 %vol (16.0-22.0); Oxygen Saturation ABG 99.7 % (95.0-100.0); Oxyhemoglobin 97.2 % THb (90.0-100.0); PO2 ABG 322.5 mmHg (80.0-100.0); PO2 FiO2 Ratio Arterial Blood 3.22 %; Reduced Hemoglobin 0.9 %THb (0-5.0); Total Hemoglobin 8.5 g/dL (12.0-18.0)
[2020-10-01 10:17] LABS: Device NON-REBREATHER MASK; Site Drawn LEFT BRACHIAL
[2020-10-01 10:31] LABS: Basophils Percent Auto 0.3 % (0.2-1.2); Eosinophils Absolute Auto 0.1 K/mm3 (0-0.3); Eosinophils Percent Auto 1.4 % (0-4.4); Hematocrit 24.3 % (42.0-52.0); Hemoglobin 7.6 g/dL (14.0-18.0); Immature Granulocyte Absolute 0.05 K/mm3 (0.00-0.031); Immature Granulocyte Percent A 0.5 % (0-0.5); Lymphocytes Absolute Auto 0.84 K/mm3 (0.9-3.2); Mean Corpuscular HGB Conc 31.3 g/dl (32-36); Mean Corpuscular Hemoglobin 30.2 pg (26-34); Mean Corpuscular Volume 96.4 fl (80-100); Mean Platelet Volume 10.8 fl (7.4-10.4); Monocytes Absolute Auto 0.3 K/mm3 (0.1-0.6); Monocytes Percent Auto 3.4 % (2.6-8.5); Neutrophils Absolute Auto 7.9 K/mm3 (1.3-6.7); Neutrophils Percent Auto 85.4 % (45.5-73.1); Nucleated Red Blood Cells Absolute Auto 0.2 K/mm3 (0.0-0.012); Nucleated Red Blood Cells Perc 1.6 % (0.0-0.2); Platelet Count Result 546 k/mm3 (150-375); Red Blood Count 2.52 M/mm3 (4.6-6.20); Red Cell Distribution Width 19.4 % (11.5-14.5); White Blood Count 9.3 K/mm3 (4.5-10.0)
[2020-10-01 10:41] LABS: INR 1.5; Prothrombin Time 18.4 Seconds (11.1-14.7)
[2020-10-01 10:42] LABS: Partial Thromboplastin Time 56.1 SECONDS (22.3-36.8)
[2020-10-01 10:44] LABS: Hypochromasia 2+ (NORMAL); Platelet Estimate Increased (Adequate)
[2020-10-01 10:45] LABS: Target Cells 1+ (NORMAL)
[2020-10-01 10:52] LABS: Blood Urea Nitrogen 16 mg/dL (9-20); Calcium 8.8 mg/dL (8.4-10.2); Carbon Dioxide > 40 mmol/L (22-30); Chloride 92 mmol/L (98-107); Estimated CRCL calculation 77 ml/min; Estimated Glomerular Filt Rate > 60; Glucose 94 mg/dL (75-110); Potassium 4.5 mmol/L (3.4-5.0); Sodium 136 mmol/L (137-145)
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
[2020-10-01] MEDS: METOPROLOL TARTRATE INJ 5 MG/5 ML VIAL IV PUSH (10:56)
[2020-10-01 10:57] LABS: Troponin I < 0.012 ng/mL (0.000-0.034)
[2020-10-01] MEDS: IPRATROPIUM BR 0.02% INH SOLN 0.5 MG/2.5 ML VIAL INHALATION (11:12)
[2020-10-01 11:20] LABS: Magnesium 1.9 mg/dL (1.6-2.3); Phosphorus 4.1 mg/dL (2.5-4.5)
--- NOTE | 2020-10-01 11:20 | PCRCNOTE ---
HOLD BIPAP FOR NOW PER ONOFRE MCKEON.
[2020-10-01 12:20] LABS: NT Pro B Type Natriuretic Pept 1490 PG/ML (5-100)
[2020-10-01 13:35] LABS: Troponin I < 0.012 ng/mL (0.000-0.034)
[2020-10-01 13:37] LABS: Alveolar/Arterial O2 Gradient 100.7 mmHg; Base Excess ABG 14.3 mEq/l (+/-2.0); Fractional Inspired Oxygen 44 %; HCO3 ABG 41.4 mEq/l (22.0-26.0); Methemoglobin ABG 0.4 %THb (0-1.5); Oxygen Content ABG 11.4 %vol (16.0-22.0); Oxygen Saturation ABG 98.4 % (95.0-100.0); Oxyhemoglobin 96.3 % THb (90.0-100.0); PO2 ABG 130.4 mmHg (80.0-100.0); PO2 FiO2 Ratio Arterial Blood 2.96 %; Reduced Hemoglobin 2.3 %THb (0-5.0); Total Hemoglobin 8.2 g/dL (12.0-18.0); pH ABG 7.375 (7.350-7.450)
[2020-10-01 13:42] LABS: Device NASAL CANNULA; PCO2 ABG 72.5 mmHg (35.0-45.0); Site Drawn LEFT BRACHIAL
--- NOTE | 2020-10-01 15:55 | PC.NURSE ---
attempted to call report to floor. recieving unit states bed is not clean
--- NOTE | 2020-10-01 17:30 | ADMGEN ---
This patient, Mundo Robles, was admitted to IMU Room 207-01. Patient/family oriented to hospital policies and general routines including ID bracelet, bed and alarms, visiting hours, pain management, procedures, bathroom and other care routines, personal items, smoking policy, room service/diet, and visiting hours. Information on how to activate the Rapid Response Team has been discussed. Patient/Family are encouraged to report perceived risks to care and to ask questions if they do not understand what they are told or what they should do.
[2020-10-01] MEDS: METOPROLOL TARTRATE 25 MG TABLET PO (22:48)
[2020-10-02] VITALS (21 sets, daily range): BP systolic 99–119; BP diastolic 56–71; PULSE 71–119; RESP 18–26; TEMP 36.1–37; O2SAT 93–100
[2020-10-02] MEDS: RIVAROXABAN 20 MG TABLET PO (00:02)
[2020-10-02] MEDS: ACETAMINOPHEN 325 MG TABLET 650 MG PO (00:02)
[2020-10-02] MEDS: ACETYLCYSTEINE 20% INHAL SOLN 800 MG/4 ML VIAL 200 MG INHALATION ×3 (04:10→13:57)
[2020-10-02] MEDS: IPRATROPIUM BR 0.02% INH SOLN 0.5 MG/2.5 ML VIAL INHALATION ×4 (04:10→20:49)
[2020-10-02 05:24] LABS: Alveolar/Arterial O2 Gradient 136.5 mmHg; Base Excess ABG 9.7 mEq/l (+/-2.0); Carboxyhemoglobin 0.5 % THb (0-2.0); Fractional Inspired Oxygen 40 %; HCO3 ABG 36.1 mEq/l (22.0-26.0); Methemoglobin ABG 0.3 %THb (0-1.5); Oxygen Saturation ABG 95.2 % (95.0-100.0); Oxyhemoglobin 94.1 % THb (90.0-100.0); PO2 ABG 78.9 mmHg (80.0-100.0); PO2 FiO2 Ratio Arterial Blood 1.97 %; Reduced Hemoglobin 5.1 %THb (0-5.0); pH ABG 7.392 (7.350-7.450)
[2020-10-02 05:27] LABS: Device BIPAP; Expiratory Pressure 6 cmH2O; Inspiratory Pressure 12 cmH2O; Modified Allen's Test Pass; PCO2 ABG 60.7 mmHg (35.0-45.0); Site Drawn RIGHT RADIAL
[2020-10-02 05:36] LABS: Hematocrit 23.5 % (42.0-52.0); Hemoglobin 7.3 g/dL (14.0-18.0); Mean Corpuscular HGB Conc 31.1 g/dl (32-36); Mean Corpuscular Hemoglobin 30.2 pg (26-34); Mean Corpuscular Volume 97.1 fl (80-100); Mean Platelet Volume 10.8 fl (7.4-10.4); Platelet Count Result 484 k/mm3 (150-375); Red Blood Count 2.42 M/mm3 (4.6-6.20); Red Cell Distribution Width 19.5 % (11.5-14.5)
[2020-10-02 06:11] LABS: Blood Urea Nitrogen 17 mg/dL (9-20); Calcium 8.9 mg/dL (8.4-10.2); Carbon Dioxide > 40 mmol/L (22-30); Chloride 94 mmol/L (98-107); Estimated CRCL calculation 98 ml/min; Estimated Glomerular Filt Rate > 60; Glucose 70 mg/dL (75-110); Potassium 4.4 mmol/L (3.4-5.0); Sodium 137 mmol/L (137-145)
[2020-10-02] MEDS: BUDESONIDE RESPULE NEB 0.5 MG/2 ML AMP INHALATION ×2 (08:31→20:49)
[2020-10-02 11:15] LABS: Basophils Percent Auto 0.5 % (0.2-1.2); Eosinophils Percent Auto 0.6 % (0-4.4); Hematocrit 22.2 % (42.0-52.0); Immature Granulocyte Absolute 0.03 K/mm3 (0.00-0.031); Immature Granulocyte Percent A 0.5 % (0-0.5); Lymphocytes Absolute Auto 0.43 K/mm3 (0.9-3.2); Lymphocytes Percent Auto 6.5 % (18.3-44.2); Mean Corpuscular HGB Conc 31.5 g/dl (32-36); Mean Corpuscular Hemoglobin 30.4 pg (26-34); Mean Corpuscular Volume 96.5 fl (80-100); Mean Platelet Volume 10.7 fl (7.4-10.4); Monocytes Absolute Auto 0.2 K/mm3 (0.1-0.6); Monocytes Percent Auto 3.2 % (2.6-8.5); Neutrophils Absolute Auto 5.9 K/mm3 (1.3-6.7); Neutrophils Percent Auto 88.7 % (45.5-73.1); Nucleated Red Blood Cells Absolute Auto 0.1 K/mm3 (0.0-0.012); Nucleated Red Blood Cells Perc 1.8 % (0.0-0.2); Platelet Count Result 413 k/mm3 (150-375); Red Cell Distribution Width 19.8 % (11.5-14.5); White Blood Count 6.6 K/mm3 (4.5-10.0)
[2020-10-02 11:26] LABS: INR 1.5; Prothrombin Time 18.9 Seconds (11.1-14.7)
[2020-10-02 11:27] LABS: Partial Thromboplastin Time 51.7 SECONDS (22.3-36.8)
[2020-10-02] MEDS: HYDROCORTISONE 5 MG TABLET PO (11:45)
[2020-10-02] MEDS: FOLIC ACID 1 MG TABLET PO (11:46)
[2020-10-02] MEDS: CHOLECALCIFEROL 1,000 UNITS TABLET 2000 UNITS PO (11:46)
[2020-10-02] MEDS: MULTIVITAMINS /C LUTEIN (CENTRUM SILVER) TABLET *BKC 1 TAB PO (11:46)
[2020-10-02] MEDS: MONTELUKAST SODIUM 10 MG TABLET PO (11:46)
[2020-10-02] MEDS: PANTOPRAZOLE 40 MG TABLET PO (11:46)
--- NOTE | 2020-10-02 11:46 | PM.CNPUL ---
Assessment and Plan Assessment and plan (1) Pulmonary embolism: Code(s): I26.99 - Other pulmonary embolism without acute cor pulmonale Status: Acute Assessment and Plan: Patient with acute pulmonary Embolism while on rivaroxaban. I will obtain upper lower extremity Dopplers to assess for DVT. At this point will start IV heparin drip and monitor for active bleeding. Of note patient has had a recent GI bleed requiring 4 units of packed red blood cells in 08/08. I spoke with the hospitalist and we will consult Hematology -Oncology regarding anticoagulation in a patient with cancer who has failed rivaroxaban. (2) Acute and chronic respiratory failure with hypercapnia: Code(s): J96.22 - Acute and chronic respiratory failure with hypercapnia Status: Acute Assessment and Plan: Patient was placed on a VATS mode of noninvasive ventilation this morning for work of breathing and desaturations. Currently he is on a VATS rate of 14, tidal volume 500, EPAP 5, inspiratory pressure minimum 7, inspiratory pressure maximum 25, rise of 1, inspiratory time 1.00 and patient says that he is comfortable. I have told him that he should wear but this noninvasive ventilation p.r.n. for his comfort. (3) End stage COPD: Code(s): J44.9 - Chronic obstructive pulmonary disease, unspecified Status: Acute Assessment and Plan: Patient with severe COPD, severe panlobular emphysema on his CT scan. I do not think he is having an active COPD exacerbation but rather his difficulty is due to his pulmonary embolism. Continue patient's current leave albuterol, ipratropium, and budesonide nebulizers. I spoke with patient and although he has refused CPAP -BiPAP in the clinic he is willing to try noninvasive ventilation at this time. Patient also stated that he wished to be full code. Will follow with you. History of Present Illness History of Present Illness Consult date: 10/02/20 Requesting physician: Cortez Sparrow MD Reason for consult: dyspnea Chief complaint: Acute on chronic respiratory failure Narrative: Patient is a 75-year-old man with a history of COPD with chronic respiratory failure, severe panlobular emphysema, bilateral lung cancer diagnosed initially in 2 7 status post radiation and chemotherapy delivered by his oncologist in [facility]. Atrial fibrillation on rivaroxaban. Patient is followed in pulmonary clinic and was last seen on 09/24/2020 he was on triple inhalers, he continued to smoke. Is on home oxygen 6-8 L at home 247. Noninvasive ventilation was recommended to the patient but he refused. And the patient also has obstructive sleep apnea but refuses CPAP treatment. Patient continues to smoke. Patient presented to the emergency room on 113 with 3 weeks of left pleuritic chest pain. Patient's shortness of breath was also worse. Patient denied any fever chills cough. in the emergency room the patient had a blood gas on 100% non-rebreather of 7.37/67/322. This was repeated on 6 L nasal cannula and the blood gas was 7.38/73/130. Patient had continued work of breathing and was placed on BiPAP.Patient had a CT angiogram of the chest that I reviewed with the radiologist this morning. He has chronic severe bullous emphysema with some attenuated vasculature in the areas of the large [place] that were present on CT scan o on 06/05/2019. on the CT angiogram on 10/01 there was a new filling defect in the right lower lobe. There was also a new lesion in the right upper lobe with market progression from 2019. In the left upper lobe the filling deficit was much more prominent than it was in 2019. This was consistent with acute pulmonary embolism. I interviewed the patient on 114 and the patient said that he felt mildly improved from yesterday. Left pleuritic chest pain persisted and shortness of breath persisted. Patient wore BiPAP 12/640% overnight with a blood gas of 7.39/61/79. BiPAP
[2020-10-02] MEDS: DIGOXIN TAB 125 MCG TABLET PO (11:47)
[2020-10-02] MEDS: MAGNESIUM OXIDE 400 MG TABLET PO ×2 (11:47→17:16)
[2020-10-02] MEDS: ASCORBIC ACID 500 MG TABLET 1000 MG PO (11:47)
[2020-10-02] MEDS: METOPROLOL TARTRATE 25 MG TABLET PO ×2 (11:47→21:06)
[2020-10-02] MEDS: THIAMINE HCL 100 MG TABLET PO (11:47)
[2020-10-02] MEDS: ESCITALOPRAM OXALATE 10 MG TABLET PO (11:47)
[2020-10-02] MEDS: FUROSEMIDE 40 MG TABLET PO (11:48)
[2020-10-02] MEDS: HEPARIN SOD/D5W 100 UNITS/ML 25,000 UNITS/250 ML BAG 11 UNITS IV CONT (11:51)
[2020-10-02 12:58] LABS: Acanthocytes 1+ (NORMAL); Atypical Lymphocytes Present; Platelet Estimate Adequate (Adequate); Stomatocytes 1+ (NORMAL)
[2020-10-02 12:59] LABS: Hypochromasia 2+ (NORMAL); Poikilocytosis 1+ (NORMAL)
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
[2020-10-02] MEDS: WARFARIN (*PBKC) 5 MG TABLET PO (17:16)
[2020-10-02 17:44] LABS: SARS-CoV-2 RNA PCR Negative
[2020-10-02 19:11] LABS: Partial Thromboplastin Time 73.2 SECONDS (22.3-36.8)
[2020-10-02] MEDS: CENTRAL LINE FLUSH 10 ML IV PUSH (21:06)
[2020-10-03] VITALS (27 sets, daily range): BP systolic 98–137; BP diastolic 48–63; PULSE 49–109; RESP 16–30; TEMP 35.9–36.5; O2SAT 89–100
[2020-10-03] MEDS: ACETYLCYSTEINE 20% INHAL SOLN 800 MG/4 ML VIAL 200 MG INHALATION ×2 (02:03→07:59)
[2020-10-03] MEDS: IPRATROPIUM BR 0.02% INH SOLN 0.5 MG/2.5 ML VIAL INHALATION ×4 (02:04→21:06)
[2020-10-03 03:08] LABS: Basophils Percent Auto 0.5 % (0.2-1.2); Eosinophils Absolute Auto 0.1 K/mm3 (0-0.3); Eosinophils Percent Auto 1.1 % (0-4.4); Hematocrit 22.4 % (42.0-52.0); Hemoglobin 7.1 g/dL (14.0-18.0); Immature Granulocyte Absolute 0.02 K/mm3 (0.00-0.031); Immature Granulocyte Percent A 0.5 % (0-0.5); Lymphocytes Absolute Auto 0.61 K/mm3 (0.9-3.2); Mean Corpuscular HGB Conc 31.7 g/dl (32-36); Mean Corpuscular Hemoglobin 30.2 pg (26-34); Mean Corpuscular Volume 95.3 fl (80-100); Monocytes Absolute Auto 0.3 K/mm3 (0.1-0.6); Monocytes Percent Auto 6.9 % (2.6-8.5); Neutrophils Absolute Auto 3.4 K/mm3 (1.3-6.7); Nucleated Red Blood Cells Absolute Auto 0.1 K/mm3 (0.0-0.012); Nucleated Red Blood Cells Perc 3.2 % (0.0-0.2); Platelet Count Result 403 k/mm3 (150-375); Red Blood Count 2.35 M/mm3 (4.6-6.20); Red Cell Distribution Width 19.4 % (11.5-14.5); White Blood Count 4.4 K/mm3 (4.5-10.0)
[2020-10-03 03:22] LABS: INR 1.1; Prothrombin Time 14.3 Seconds (11.1-14.7)
[2020-10-03 03:23] LABS: Hypochromasia 2+ (NORMAL); Platelet Estimate Adequate (Adequate); Target Cells 1+ (NORMAL)
[2020-10-03 03:25] LABS: Partial Thromboplastin Time 124.5 SECONDS (22.3-36.8)
[2020-10-03 03:31] LABS: Blood Urea Nitrogen 19 mg/dL (9-20); Calcium 8.9 mg/dL (8.4-10.2); Carbon Dioxide > 40 mmol/L (22-30); Chloride 90 mmol/L (98-107); Estimated CRCL calculation 83 ml/min; Estimated Glomerular Filt Rate > 60; Glucose 95 mg/dL (75-110); Potassium 4.2 mmol/L (3.4-5.0); Sodium 134 mmol/L (137-145)
[2020-10-03 05:01] LABS: Vitamin B12 > 1000.0 pg/mL (239-931)
[2020-10-03 05:13] LABS: Iron 95 ug/dL (49-181)
[2020-10-03 05:22] LABS: Percent Iron Saturation 34 % (20-50)
[2020-10-03] MEDS: CENTRAL LINE FLUSH 10 ML IV PUSH ×3 (06:22→22:26)
[2020-10-03] MEDS: BUDESONIDE RESPULE NEB 0.5 MG/2 ML AMP INHALATION ×2 (07:58→21:06)
[2020-10-03] MEDS: ASCORBIC ACID 500 MG TABLET 1000 MG PO (09:00)
--- NOTE | 2020-10-03 10:22 | PM.PNPUL ---
Progress Note: A&P Assessment and Plan (1) Pulmonary embolism: Code(s): I26.99 - Other pulmonary embolism without acute cor pulmonale Status: Acute Assessment and Plan: 10/02 Patient with acute pulmonary embolism while on rivaroxaban. I will obtain upper lower extremity Dopplers to assess for DVT. At this point will start IV heparin drip and monitor for active bleeding. Of note patient has had a recent GI bleed requiring 4 units of packed red blood cells in 08/08. I spoke with the hospitalist and we will consult Hematology -Oncology regarding anticoagulation in a patient with cancer who has failed rivaroxaban. After speaking with hem/onc warfarin was started. 10/03 Paitnet off noninvasive now, on 10 L NC and feels improved with no left sided CP. (2) Acute and chronic respiratory failure with hypercapnia: Code(s): J96.22 - Acute and chronic respiratory failure with hypercapnia Status: Acute Assessment and Plan: 10/02 Patient was placed on a VATS mode of noninvasive ventilation this morning for work of breathing and desaturations. Currently he is on AVAPS rate of 14, tidal volume 500, EPAP 5, inspiratory pressure minimum 7, inspiratory pressure maximum 25, rise of 1, inspiratory time 1.00 and patient says that he is comfortable. I have told him that he should wear but this noninvasive ventilation p.r.n. for his comfort. 10/03 Patient with chronic respiratory failure With blood gas on 10/01 - on 100% non-rebreather of 7.37 / 67/322 and an elevated bicarb greater than 40. AVAPS rate of 14, tidal volume 500, EPAP 5, inspiratory pressure minimum 7, inspiratory pressure maximum 25, rise of 1, inspiratory time 1.00 and 40%. I will check ABG prior to removal. (3) End stage COPD: Code(s): J44.9 - Chronic obstructive pulmonary disease, unspecified Status: Acute Assessment and Plan: Patient with severe COPD, severe panlobular emphysema on his CT scan. I do not think he is having an active COPD exacerbation but rather his difficulty is due to his pulmonary embolism. Continue patient's current leave albuterol, ipratropium, and budesonide nebulizers. I spoke with patient and although he has refused CPAP -BiPAP in the clinic he is willing to try noninvasive ventilation at this time. Patient also stated that he wished to be full code. Will follow with you. Subjective Date/time seen: Patient is a 75-year-old man with a history of COPD with chronic respiratory failure on 6-8 L NC oxygen at home, severe panlobular emphysema on CT chest, bilateral lung cancer diagnosed initially in 11/05 status post radiation and chemotherapy delivered by his oncologist in [facility]. Atrial fibrillation on rivaroxaban. Patient is followed in pulmonary clinic and was last seen on 09/24/2020 he was on triple inhalers, he continued to smoke. Is on home oxygen 6-8 L at home 11/04. Noninvasive ventilation was recommended to the patient but he refused. And the patient also has obstructive sleep apnea but refuses CPAP treatment. Patient continues to smoke. Patient presented to the emergency room on 113 with 3 weeks of left pleuritic chest pain. Patient's shortness of breath was also worse. Patient denied any fever chills cough. in the emergency room the patient had a blood gas on 100% non-rebreather of 7.37/67/322. This was repeated on 6 L nasal cannula and the blood gas was 7.38/73/130. Patient had continued work of breathing and was placed on BiPAP.Patient had a CT angiogram of the chest that I reviewed with the radiologist this morning. He has chronic severe bullous emphysema with some attenuated vasculature in the areas of the large [place] that were present on CT scan o on 06/05/2019. on the CT angiogram on 10/01 there was a new filling defect in the right lower lobe. There was also a new lesion in the right upper lobe with market progression from 2018. In the left upper lobe the filling deficit was much more
[2020-10-03] MEDS: ESCITALOPRAM OXALATE 10 MG TABLET PO (11:04)
[2020-10-03] MEDS: FUROSEMIDE 40 MG TABLET PO (11:04)
[2020-10-03] MEDS: THIAMINE HCL 100 MG TABLET PO (11:05)
[2020-10-03] MEDS: DIGOXIN TAB 125 MCG TABLET PO (11:05)
[2020-10-03] MEDS: HYDROCORTISONE 5 MG TABLET PO (11:05)
[2020-10-03] MEDS: MULTIVITAMINS /C LUTEIN (CENTRUM SILVER) TABLET *BKC 1 TAB PO (11:06)
[2020-10-03] MEDS: CHOLECALCIFEROL 1,000 UNITS TABLET 2000 UNITS PO (11:06)
[2020-10-03] MEDS: MONTELUKAST SODIUM 10 MG TABLET PO (11:06)
[2020-10-03] MEDS: MAGNESIUM OXIDE 400 MG TABLET PO ×2 (11:06→16:54)
[2020-10-03] MEDS: PANTOPRAZOLE 40 MG TABLET PO (11:07)
[2020-10-03] MEDS: FOLIC ACID 1 MG TABLET PO (11:07)
[2020-10-03] MEDS: METOPROLOL TARTRATE 25 MG TABLET PO ×2 (11:07→22:25)
[2020-10-03] MEDS: ENOXAPARIN 80 MG/0.8 ML SYRINGE 65 MG SUB-Q ×2 (11:08→22:26)
[2020-10-03] MEDS: WARFARIN (*PBKC) 5 MG TABLET PO (16:54)
--- NOTE | 2020-10-03 18:07 | PM.IMPN ---
Progress Note: A&P Assessment and Plan (1) Pulmonary embolism: Code(s): I26.99 - Other pulmonary embolism without acute cor pulmonale Status: Acute Assessment and Plan: Discussed case with Dr. Avila , pulmonary and his oncologist and since patient has failed Xarelto treatment will place on IV heparin with transition to warfarin therapy. Change to Lovenox b.i.d. today INR was 1.5 and confirms that he has taking the Xarelto faithfully the last 5 weeks Troponin is negative so do not suspect large clot burden and not seen on CT either Venous Doppler negative Continue daily INR with warfarin initially at 5 mg day 2. (2) Acute and chronic respiratory failure with hypercapnia: Code(s): J96.22 - Acute and chronic respiratory failure with hypercapnia Status: Acute Assessment and Plan: Secondary to emboli. BiPAP as needed and treat emboli Agree with Dr. Avila that does not appear to be COPD exacerbation but more secondary to his emboli (3) Chronic atrial fibrillation: Code(s): I48.20 - Chronic atrial fibrillation, unspecified Status: Acute Assessment and Plan: Ventricular response fairly well controlled continue beta-salinas, calcium channel salinas, and Lanoxin (4) Alcohol dependence, in remission: Code(s): F10.21 - Alcohol dependence, in remission Status: Acute Assessment and Plan: Cover with thiamin since PMI is toward the low side (5) Non-small cell lung cancer: Qualifiers: Laterality: unspecified laterality Qualified Code(s): C34.90 - Malignant neoplasm of unspecified part of unspecified bronchus or lung Code(s): C34.90 - Malignant neoplasm of unspecified part of unspecified bronchus or lung Status: Chronic Assessment and Plan: Remains in admission and will continue follow-up with his oncologist (6) Essential (primary) hypertension: Code(s): I10 - Essential (primary) hypertension Status: Acute Assessment and Plan: Blood pressure adequate on his usual medications (7) Anemia: Qualifiers: Anemia type: unspecified type Qualified Code(s): D64.9 - Anemia, unspecified Code(s): D64.9 - Anemia, unspecified Status: Chronic Assessment and Plan: Probable multifactorial including chronic disease possibly from past blood loss. Hemoglobin borderline at 7.1 with normal iron studies and B12 Continue to follow all while anticoagulating especially in light of previous GI bleeding 08/08 Subjective Date/time seen: 10/03/20 18:07 Interval history: Date of visit 10/03. 75-year-old hypertensive white male with COPD on home O2 and history of non small cell CA lung in remission with ongoing treatments presented to the emergency room with acute on chronic respiratory failure and left-sided chest pain. CTA revealed pulmonary emboli bilaterally and patient had been taking Xarelto for AFib. Switched IV heparin and today still some shortness of breath but left-sided chest pain has resolved. No increased cough no fever no chills. today tested positive for COVID. She was asymptomatic and had testing for upcoming planned surgery Exam Narrative: Exam Narrative: Blood pressure 136/60 pulse is 82 saturating 89% on 8 L nasal cannula and spending most of his time on BiPAP Pupils equal reactive to light Mouth normal Lungs prolonged expiratory phase distant breath sounds but no wheezing or consolidation CV irregular no murmurs Abdomen soft nontender no masses Extremities without edema distal pulses are 1+ Neuro alert cooperative no focal deficits cranial nerves 2-12 are intact Integument no skin breakdown rashes Objective Data Vital Signs Vital Signs: Vital Signs - 24 hr 10/02/20 19:56 10/02/20 20:00 10/02/20 20:49 Temperature 37.0 C Pulse Rate 103 H 84 93 Respiratory Rate 25 H 18 Blood Pressure 101/61 Pulse Oximetry 96 96 10/02/20 21:01 10/02/20 21:06 10/02/20 2
[2020-10-04] VITALS (38 sets, daily range): BP systolic 95–122; BP diastolic 45–70; PULSE 60–110; RESP 12–27; TEMP 35.8–36.6; O2SAT 90–100
[2020-10-04] MEDS: IPRATROPIUM BR 0.02% INH SOLN 0.5 MG/2.5 ML VIAL INHALATION ×4 (02:12→20:12)
--- NOTE | 2020-10-04 02:24 | PCRCNOTE ---
02:24 went in to give pt neb tx found him off the V60 on a HFNC. Asked pt to go back on his V60. He told me no the mask is too uncomfortable and he won't wear it.
[2020-10-04] MEDS: CENTRAL LINE FLUSH 10 ML IV PUSH ×3 (04:24→20:29)
[2020-10-04 04:36] LABS: Eosinophils Percent Auto 2.1 % (0-4.4); Immature Granulocyte Absolute 0.01 K/mm3 (0.00-0.031); Immature Granulocyte Percent A 0.5 % (0-0.5); Lymphocytes Absolute Auto 0.64 K/mm3 (0.9-3.2); Lymphocytes Percent Auto 32.8 % (18.3-44.2); Mean Corpuscular HGB Conc 32.2 g/dl (32-36); Mean Corpuscular Hemoglobin 30.8 pg (26-34); Mean Corpuscular Volume 95.8 fl (80-100); Mean Platelet Volume 10.8 fl (7.4-10.4); Monocytes Absolute Auto 0.6 K/mm3 (0.1-0.6); Monocytes Percent Auto 31.3 % (2.6-8.5); Neutrophils Absolute Auto 0.6 K/mm3 (1.3-6.7); Neutrophils Percent Auto 32.3 % (45.5-73.1); Nucleated Red Blood Cells Absolute Auto 0.1 K/mm3 (0.0-0.012); Nucleated Red Blood Cells Perc 4.6 % (0.0-0.2); Platelet Count Result 312 k/mm3 (150-375); Red Blood Count 2.14 M/mm3 (4.6-6.20)
[2020-10-04 04:55] LABS: INR 1.1; Prothrombin Time 14.6 Seconds (11.1-14.7)
[2020-10-04 05:07] LABS: Hemoglobin 6.6 g/dL (14.0-18.0)
[2020-10-04 05:08] LABS: Hematocrit 20.5 % (42.0-52.0)
[2020-10-04 05:09] LABS: Anisocytosis 1+ (NORMAL); Hypochromasia 2+ (NORMAL); Platelet Estimate Adequate (Adequate)
[2020-10-04 05:10] LABS: Atypical Lymphocytes Present
[2020-10-04 05:43] LABS: Alveolar/Arterial O2 Gradient 117.8 mmHg; Base Excess ABG 14.9 mEq/l (+/-2.0); Fractional Inspired Oxygen 35 %; HCO3 ABG 42.1 mEq/l (22.0-26.0); Oxygen Content ABG 15.1 %vol (16.0-22.0); Oxygen Saturation ABG 88.6 % (95.0-100.0); Oxyhemoglobin 87.1 % THb (90.0-100.0); PO2 ABG 55.7 mmHg (80.0-100.0); PO2 FiO2 Ratio Arterial Blood 1.59 %; Total Hemoglobin 12.3 g/dL (12.0-18.0)
[2020-10-04 05:45] LABS: PCO2 ABG 65.4 mmHg (35.0-45.0); Site Drawn RIGHT BRACHIAL
[2020-10-04 05:46] LABS: Device OTHER DEVICE
[2020-10-04 05:55] LABS: pH ABG 7.427 (7.350-7.450)
[2020-10-04 07:23] LABS: IFOB Positive Control Positive; Immunochemical Fecal Occult Bl Negative (N)
[2020-10-04] MEDS: TUBING, BLOOD PLUM PUMP TUBING 1 EACH XX (08:33)
[2020-10-04] MEDS: SODIUM CHLORIDE 0.9% IV 250 ML 30 ML IV CONT (08:33)
[2020-10-04] MEDS: FOLIC ACID 1 MG TABLET PO (08:46)
[2020-10-04] MEDS: ESCITALOPRAM OXALATE 10 MG TABLET PO (08:46)
[2020-10-04] MEDS: MAGNESIUM OXIDE 400 MG TABLET PO ×2 (08:46→17:17)
[2020-10-04] MEDS: FUROSEMIDE 40 MG TABLET PO (08:46)
[2020-10-04] MEDS: MULTIVITAMINS /C LUTEIN (CENTRUM SILVER) TABLET *BKC 1 TAB PO (08:46)
[2020-10-04] MEDS: DIGOXIN TAB 125 MCG TABLET PO (08:47)
[2020-10-04] MEDS: THIAMINE HCL 100 MG TABLET PO (08:47)
[2020-10-04] MEDS: CHOLECALCIFEROL 1,000 UNITS TABLET 2000 UNITS PO (08:47)
[2020-10-04] MEDS: ASCORBIC ACID 500 MG TABLET 1000 MG PO (08:47)
[2020-10-04] MEDS: HYDROCORTISONE 5 MG TABLET PO (08:48)
[2020-10-04] MEDS: METOPROLOL TARTRATE 25 MG TABLET PO ×2 (08:49→20:28)
[2020-10-04] MEDS: MONTELUKAST SODIUM 10 MG TABLET PO (08:49)
[2020-10-04] MEDS: PANTOPRAZOLE 40 MG TABLET PO (08:49)
[2020-10-04] MEDS: BUDESONIDE RESPULE NEB 0.5 MG/2 ML AMP INHALATION ×2 (08:51→20:12)
[2020-10-04] MEDS: ENOXAPARIN 80 MG/0.8 ML SYRINGE 65 MG SUB-Q ×2 (08:53→20:29)
[2020-10-04 13:19] LABS: Hematocrit 24.7 % (42.0-52.0); Hemoglobin 7.9 g/dL (14.0-18.0)
--- NOTE | 2020-10-04 14:49 | PM.IMPN ---
Progress Note: A&P Assessment and Plan (1) Pulmonary embolism: Code(s): I26.99 - Other pulmonary embolism without acute cor pulmonale Status: Acute Assessment and Plan: Discussed case with Dr. Avila , pulmonary and his oncologist and since patient failed Xarelto treatment placeed on IV heparin with transition to warfarin therapy. Changed to Lovenox b.i.d. 10/03 INR was 1.5 on admission and confirms that he has taking the Xarelto faithfully the last 5 weeks Troponin is negative so do not suspect large clot burden and not seen on CT either Venous Doppler negative Continue daily INR with warfarin initially at 5 mg day but increased to 7.5 today with INR still 1.1 D#3 (2) Acute and chronic respiratory failure with hypercapnia: Code(s): J96.22 - Acute and chronic respiratory failure with hypercapnia Status: Acute Assessment and Plan: Secondary to emboli. BiPAP as needed and treat emboli Agree with Dr. Avila that does not appear to be COPD exacerbation but more secondary to his emboli (3) Chronic atrial fibrillation: Code(s): I48.20 - Chronic atrial fibrillation, unspecified Status: Acute Assessment and Plan: Ventricular response fairly well controlled continue beta-salinas, calcium channel salinas, and Lanoxin (4) Alcohol dependence, in remission: Code(s): F10.21 - Alcohol dependence, in remission Status: Acute Assessment and Plan: Cover with thiamin since PMI is toward the low side (5) Non-small cell lung cancer: Qualifiers: Laterality: unspecified laterality Qualified Code(s): C34.90 - Malignant neoplasm of unspecified part of unspecified bronchus or lung Code(s): C34.90 - Malignant neoplasm of unspecified part of unspecified bronchus or lung Status: Chronic Assessment and Plan: Remains in admission and will continue follow-up with his oncologist (6) Essential (primary) hypertension: Code(s): I10 - Essential (primary) hypertension Status: Acute Assessment and Plan: Blood pressure adequate on his usual medications (7) Anemia: Qualifiers: Anemia type: unspecified type Qualified Code(s): D64.9 - Anemia, unspecified Code(s): D64.9 - Anemia, unspecified Status: Chronic Assessment and Plan: Probable multifactorial including chronic disease possibly from past blood loss. Hemoglobin borderline at 6.6 today with normal iron studies and B12 1 unit packed rbc today Continue to follow all while anticoagulating especially in light of previous GI bleeding 08/08 Subjective Date/time seen: 10/04/20 14:49 Interval history: Date of visit 10/04. 75-year-old hypertensive white male with COPD on home O2 and history of non small cell CA lung in remission with ongoing treatments presented to the emergency room with acute on chronic respiratory failure and left-sided chest pain. CTA revealed pulmonary emboli bilaterally and patient had been taking Xarelto for AFib. Switched IV heparin and still some shortness of breath but left-sided chest pain has resolved. No increased cough no fever no chills. tested positive for COVID.10/03 She was asymptomatic and had testing for upcoming planned surgery Exam Narrative: Exam Narrative: Blood pressure 112/64 pulse is 72 saturating 100% on 8 L nasal cannula and spending less time on BiPAP Pupils equal reactive to light Mouth normal Lungs prolonged expiratory phase distant breath sounds but no wheezing or consolidation CV irregular no murmurs Abdomen soft nontender no masses Extremities without edema distal pulses are 1+ Neuro alert cooperative no focal deficits cranial nerves 2-12 are intact Integument no skin breakdown rashes Objective Data Vital Signs Vital Signs: Vital Signs - 24 hr 10/03/20 14:56 10/03/20 16:00 10/03/20 18:00 Temperature 36.1 C L Pulse Rate 75 83 49 L Respiratory Rate 20 24 H Blood Pressure 1
--- NOTE | 2020-10-04 16:43 | PM.PNPUL ---
Progress Note: A&P Assessment and Plan (1) Pulmonary embolism: Code(s): I26.99 - Other pulmonary embolism without acute cor pulmonale Status: Acute Assessment and Plan: 10/02 Patient with acute pulmonary embolism while on rivaroxaban. LE Dopplers ordered, negative for DVT. Started on IV heparin drip and monitor for active bleeding. Of note patient has had a recent GI bleed requiring 4 units of packed red blood cells in 08/08. Since he failed rivaroxaban with lung cancer which is stable, warfarin was started per discussion with Hematology -Oncology. 10/03 Patient off noninvasive now, on 10 L NC and feels improved with no left sided CP. 10/04 He is using 8 L/min alternating with 35%; ABG this am was on 35% with mild hypoxemia, pO2 55.7, so needs more than 35%. (2) Acute and chronic respiratory failure with hypercapnia: Code(s): J96.22 - Acute and chronic respiratory failure with hypercapnia Status: Acute Assessment and Plan: 10/02 Patient was placed on a VATS mode of noninvasive ventilation this morning for work of breathing and desaturations. Currently he is on AVAPS rate of 14, tidal volume 500, EPAP 5, inspiratory pressure minimum 7, inspiratory pressure maximum 25, rise of 1, inspiratory time 1.00 and patient says that he is comfortable. I have told him that he should wear this noninvasive ventilation p.r.n. for his comfort. 10/03 Patient with chronic respiratory failure with blood gas on 10/01 - on 100% non-rebreather of 7.37 / 67/322 and an elevated bicarb greater than 40. AVAPS rate of 14, tidal volume 500, EPAP 5, inspiratory pressure minimum 7, inspiratory pressure maximum 25, rise of 1, inspiratory time 1.00 and 40%. 10/04 ABG this am showed 7.427 / 65.4 / 55.7 /42.1 /88.6% with 35% O2 recorded. His acid base status is improved, needs more O2. He is a candidate for NPPV at home. (3) End stage COPD: Code(s): J44.9 - Chronic obstructive pulmonary disease, unspecified Status: Acute Assessment and Plan: Patient with severe COPD, severe panlobular emphysema on his CT scan. I do not think he is having an active COPD exacerbation but rather his difficulty is due to his pulmonary embolism. Continue patient's current leave albuterol, ipratropium, and budesonide nebulizers. Although he previously refused CPAP -BiPAP in the clinic he is willing to try noninvasive ventilation at this time. Patient also stated that he wished to be full code. Will follow with you. Subjective Date/time seen: 10/04/20 16:43 This 75 yo man is seen in follow up for new bilateral PE; he has chronic hypoxemic respiratory failure with stable nonsmall cell lung cancer, developed new emboli while on Xarelto, so he is transitioning to warfarin, INR is still subtherapeutic. He wants to go home, is not doing anything other than sitting in bed. I discussed his care with Dr Sparrow today. Review of Systems Review of Systems: All systems reviewed & are unremarkable except as noted in HPI and below Eyes: Eyes: Reports no additional eye complaints ENT: Reports system reviewed and no additional complaints, except as documented and Reports sinus pressure Cardiovascular: Cardiovascular: Reports no additional cardiovascular complaints and Reports dyspnea on exertion Respiratory: Respiratory: Reports as per HPI, Reports no additional respiratory complaints, Denies change in phlegm color, Denies chest congestion, Denies hemoptysis, Denies excessive phlegm production and Reports dyspnea on exertion Gastrointestinal: Gastrointestinal: Reports no additional gastrointestinal complaints Musculoskeletal: Musculoskeletal: Reports no additional musculoskeletal complaints Integumentary/Breasts: Skin/Breast: Reports system review
[2020-10-04] MEDS: WARFARIN (*PBKC) 7.5 MG TABLET PO (17:18)
[2020-10-04 18:46] LABS: SARS-CoV-2 RNA PCR Negative
[2020-10-05] VITALS (28 sets, daily range): BP systolic 92–120; BP diastolic 52–71; PULSE 59–91; RESP 16–27; TEMP 35.6–36.7; O2SAT 85–100
[2020-10-05] MEDS: IPRATROPIUM BR 0.02% INH SOLN 0.5 MG/2.5 ML VIAL INHALATION ×4 (02:21→19:49)
[2020-10-05] MEDS: HEPARIN SOD FLUSH 500 UNITS/5 ML SYRINGE IV PUSH (04:38)
[2020-10-05] MEDS: CENTRAL LINE FLUSH 10 ML IV PUSH ×3 (05:06→20:51)
[2020-10-05 05:28] LABS: Basophils Percent Auto 0.9 % (0.2-1.2); Eosinophils Percent Auto 0.9 % (0-4.4); Hematocrit 24.2 % (42.0-52.0); Hemoglobin 7.7 g/dL (14.0-18.0); Immature Granulocyte Absolute 0.01 K/mm3 (0.00-0.031); Immature Granulocyte Percent A 0.5 % (0-0.5); Lymphocytes Absolute Auto 0.72 K/mm3 (0.9-3.2); Lymphocytes Percent Auto 32.4 % (18.3-44.2); Mean Corpuscular HGB Conc 31.8 g/dl (32-36); Mean Corpuscular Hemoglobin 30.1 pg (26-34); Mean Corpuscular Volume 94.5 fl (80-100); Mean Platelet Volume 10.7 fl (7.4-10.4); Monocytes Absolute Auto 1.1 K/mm3 (0.1-0.6); Monocytes Percent Auto 48.6 % (2.6-8.5); Neutrophils Absolute Auto 0.4 K/mm3 (1.3-6.7); Neutrophils Percent Auto 16.7 % (45.5-73.1); Nucleated Red Blood Cells Absolute Auto 0.1 K/mm3 (0.0-0.012); Nucleated Red Blood Cells Perc 4.5 % (0.0-0.2); Platelet Count Result 272 k/mm3 (150-375); Red Blood Count 2.56 M/mm3 (4.6-6.20); Red Cell Distribution Width 19.4 % (11.5-14.5); White Blood Count 2.2 K/mm3 (4.5-10.0)
[2020-10-05 05:45] LABS: Blood Urea Nitrogen 12 mg/dL (9-20); Calcium 8.7 mg/dL (8.4-10.2); Carbon Dioxide > 40 mmol/L (22-30); Chloride 92 mmol/L (98-107); Estimated CRCL calculation 94 ml/min; Estimated Glomerular Filt Rate > 60; Glucose 102 mg/dL (75-110); Potassium 3.8 mmol/L (3.4-5.0); Sodium 137 mmol/L (137-145)
[2020-10-05 05:46] LABS: INR 1.4; Prothrombin Time 17.3 Seconds (11.1-14.7)
[2020-10-05 06:32] LABS: Platelet Estimate Adequate (Adequate)
[2020-10-05 06:34] LABS: Anisocytosis 2+ (NORMAL); Hypochromasia 1+ (NORMAL); Ovalocytes 1+ (NORMAL); Poikilocytosis 1+ (NORMAL); Target Cells 1+ (NORMAL)
[2020-10-05] MEDS: BUDESONIDE RESPULE NEB 0.5 MG/2 ML AMP INHALATION ×2 (07:54→19:49)
[2020-10-05] MEDS: ASCORBIC ACID 500 MG TABLET 1000 MG PO (09:04)
[2020-10-05] MEDS: MONTELUKAST SODIUM 10 MG TABLET PO (09:05)
[2020-10-05] MEDS: METOPROLOL TARTRATE 25 MG TABLET PO ×2 (09:05→20:45)
[2020-10-05] MEDS: FUROSEMIDE 40 MG TABLET PO (09:05)
[2020-10-05] MEDS: ESCITALOPRAM OXALATE 10 MG TABLET PO (09:06)
[2020-10-05] MEDS: THIAMINE HCL 100 MG TABLET PO (09:06)
[2020-10-05] MEDS: DIGOXIN TAB 125 MCG TABLET PO (09:06)
[2020-10-05] MEDS: HYDROCORTISONE 5 MG TABLET PO (09:06)
[2020-10-05] MEDS: MULTIVITAMINS /C LUTEIN (CENTRUM SILVER) TABLET *BKC 1 TAB PO (09:06)
[2020-10-05] MEDS: CHOLECALCIFEROL 1,000 UNITS TABLET 2000 UNITS PO (09:06)
[2020-10-05] MEDS: MAGNESIUM OXIDE 400 MG TABLET PO ×2 (09:07→17:56)
[2020-10-05] MEDS: PANTOPRAZOLE 40 MG TABLET PO (09:07)
[2020-10-05] MEDS: ENOXAPARIN 80 MG/0.8 ML SYRINGE 65 MG SUB-Q ×2 (09:07→20:50)
[2020-10-05] MEDS: FOLIC ACID 1 MG TABLET PO (09:07)
--- NOTE | 2020-10-05 10:06 | PM.IMPN ---
Progress Note: A&P Assessment and Plan (1) Pulmonary embolism: Code(s): I26.99 - Other pulmonary embolism without acute cor pulmonale Status: Acute Assessment and Plan: Discussed case with Dr. Avila , pulmonary and his oncologist and since patient failed Xarelto treatment placeed on IV heparin with transition to warfarin therapy. Changed to Lovenox b.i.d. 10/03 INR was 1.5 on admission and confirms that he has taking the Xarelto faithfully the last 5 weeks Troponin is negative so do not suspect large clot burden and not seen on CT either Venous Doppler negative I NR 1.4 today after warfarin 5,5,7.5. will increase to 9 mg for D #4. (2) Acute and chronic respiratory failure with hypercapnia: Code(s): J96.22 - Acute and chronic respiratory failure with hypercapnia Status: Acute Assessment and Plan: Secondary to emboli. BiPAP as needed and treat emboli Agree with Dr. Avila that does not appear to be COPD exacerbation but more secondary to his emboli still requiring more 02 than at home so will recheck echo since looks to be possibly 2 years since last echo (3) Chronic atrial fibrillation: Code(s): I48.20 - Chronic atrial fibrillation, unspecified Status: Acute Assessment and Plan: Ventricular response fairly well controlled continue beta-salinas, calcium channel salinas, and Lanoxin recheck echo (4) Alcohol dependence, in remission: Code(s): F10.21 - Alcohol dependence, in remission Status: Acute Assessment and Plan: Cover with thiamin since BMI is toward the low side (5) Non-small cell lung cancer: Qualifiers: Laterality: unspecified laterality Qualified Code(s): C34.90 - Malignant neoplasm of unspecified part of unspecified bronchus or lung Code(s): C34.90 - Malignant neoplasm of unspecified part of unspecified bronchus or lung Status: Chronic Assessment and Plan: Remains in admission and will continue follow-up with his oncologist (6) Essential (primary) hypertension: Code(s): I10 - Essential (primary) hypertension Status: Acute Assessment and Plan: Blood pressure adequate on his usual medications (7) Anemia: Qualifiers: Anemia type: unspecified type Qualified Code(s): D64.9 - Anemia, unspecified Code(s): D64.9 - Anemia, unspecified Status: Chronic Assessment and Plan: Probable multifactorial including chronic disease possibly from past blood loss. Hemoglobin 7.7 today with normal iron studies and B12 1 unit packed rbc 10/04 when dipped to 6.6 Continue to follow all while anticoagulating especially in light of previous GI bleeding 08/08 Subjective Date/time seen: 10/05/20 10:06 Interval history: Date of visit 10/05. 75-year-old hypertensive white male with COPD on home O2 and history of non small cell CA lung in remission with ongoing treatments presented to the emergency room with acute on chronic respiratory failure and left-sided chest pain. CTA revealed pulmonary emboli bilaterally and patient had been taking Xarelto for AFib. Switched IV heparin and still some shortness of breath but left-sided chest pain has resolved. No increased cough no fever no chills. tested positive for COVID.10/03 She was asymptomatic and had testing for upcoming planned surgery Wants to go home Exam Narrative: Exam Narrative: Blood pressure 110/70 pulse is 84 saturating 96% on 8 L nasal cannula and spending less time on BiPAP, lying comfortable in bed Pupils equal reactive to light Mouth normal Lungs prolonged expiratory phase distant breath sounds but no wheezing or consolidation CV irregular no murmurs Abdomen soft nontender no masses Extremities without edema distal pulses are 1+ Neuro alert cooperative no focal deficits cranial nerves 2-12 are intact Integument no skin breakdown rashes Objective Data Vital Signs Vital Signs: Vital Signs - 24 hr
[2020-10-05] MEDS: WARFARIN (*PBKC) 3 MG TABLET 9 MG PO (17:56)
--- NOTE | 2020-10-05 19:31 | PM.PNPUL ---
Progress Note: A&P Assessment and Plan (1) Pulmonary embolism: Code(s): I26.99 - Other pulmonary embolism without acute cor pulmonale Status: Acute Assessment and Plan: 10/02 Patient with acute pulmonary embolism while on rivaroxaban. LE Dopplers ordered, negative for DVT. Started on IV heparin drip and monitor for active bleeding. Of note patient has had a recent GI bleed requiring 4 units of packed red blood cells in 08/08. Since he failed rivaroxaban with lung cancer which is stable, warfarin was started per discussion with Hematology -Oncology. 10/03 Patient off noninvasive now, on 10 L NC and feels improved with no left sided CP. 10/04 He is using 8 L/min alternating with 35%; ABG this am was on 35% with mild hypoxemia, pO2 55.7, so needs more than 35%. 10/05 repeat echo pending to evaluate R heart function after PE (2) Acute and chronic respiratory failure with hypercapnia: Code(s): J96.22 - Acute and chronic respiratory failure with hypercapnia Status: Acute Assessment and Plan: 10/02 Patient was placed on a VATS mode of noninvasive ventilation this morning for work of breathing and desaturations. Currently he is on AVAPS rate of 14, tidal volume 500, EPAP 5, inspiratory pressure minimum 7, inspiratory pressure maximum 25, rise of 1, inspiratory time 1.00 and patient says that he is comfortable. I have told him that he should wear this noninvasive ventilation p.r.n. for his comfort. 10/03 Patient with chronic respiratory failure with blood gas on 10/01 - on 100% non-rebreather of 7.37 / 67/322 and an elevated bicarb greater than 40. AVAPS rate of 14, tidal volume 500, EPAP 5, inspiratory pressure minimum 7, inspiratory pressure maximum 25, rise of 1, inspiratory time 1.00 and 40%. 10/04 ABG this am showed 7.427 / 65.4 / 55.7 /42.1 /88.6% with 35% O2 recorded. His acid base status is improved, needs more O2. He is a candidate for NPPV at home. 10/05 Stable on lower flow O2, 5-6 L/min; expet Trilogy NPPV to be delivered tomorrow (3) End stage COPD: Code(s): J44.9 - Chronic obstructive pulmonary disease, unspecified Status: Acute Assessment and Plan: Patient with severe COPD, severe panlobular emphysema on his CT scan. I do not think he is having an active COPD exacerbation but rather his difficulty is due to his pulmonary embolism. Continue patient's current leave albuterol, ipratropium, and budesonide nebulizers. Although he previously refused CPAP -BiPAP in the clinic he is willing to try noninvasive ventilation at this time. Patient also stated that he wished to be full code. Will follow with you. Subjective Date/time seen: 10/05/20 19:31 This 75 yo man is seen in follow up for new bilateral PE; he has chronic hypoxemic respiratory failure with stable nonsmall cell lung cancer, developed new emboli while on Xarelto, so he is transitioning to warfarin, INR is still subtherapeutic, almost at goal. He is not having any new issues today. He is a candidate for a NPPV, which may be available Tuesday. He agrees to use this at home. Review of Systems Review of Systems: All systems reviewed & are unremarkable except as noted in HPI and below Eyes: Eyes: Reports no additional eye complaints ENT: Reports system reviewed and no additional complaints, except as documented and Reports sinus pressure Cardiovascular: Cardiovascular: Reports no additional cardiovascular complaints and Reports dyspnea on exertion Respiratory: Respiratory: Reports as per HPI, Reports no additional respiratory complaints, Denies change in phlegm color, Denies chest congestion, Denies hemoptysis, Denies excessive phlegm production and Reports dyspnea on exertion Gastrointestinal: Gastrointestinal: Reports no add
[2020-10-06] VITALS (23 sets, daily range): BP systolic 96–113; BP diastolic 47–79; PULSE 64–111; RESP 18–24; TEMP 35.9–37.2; O2SAT 95–100
--- NOTE | 2020-10-06 | ECHO_ITS ---
Patient Info Name: Mundo Robles Age: 75 years : 1945 Gender: Male Ht: 71 in Wt: 134 lbs BSA: 1.73 m2 HR: 69 bpm BP: 111 / 73 mmHg Heart Rhythm: Atrial Fibrillation Technical Quality: Good Exam Date: 10/06/2020 10:28 AM Exam Location: [facility] Pulmonary Exam Room: [place] Patient Status: Inpatient Admit Date: 10/01/2020 Staff Ordering Physician: Cortez Sparrow MD Cream Buyer: Lana Alvarado RDCS Attending Provider: Cortez Sparrow MD Referring Physician: Kyara SIERRA; Exam Type: CA echo doppler color flow Study Info Indications - sob copd PE Complete two-dimensional, color flow and Doppler transthoracic echocardiogram is performed. Summary 1. Complete two-dimensional, color flow and Doppler transthoracic echocardiogram is performed. 2. Left ventricular chamber dimension is normal. 3. Left ventricular systolic function is normal, estimated at 60-65%. 4. The left ventricular diastolic function is abnormal. 5. E/e' 11 is mildly elevated. 6. Probably in atrial fibrillation. 7. Right ventricular systolic function is moderately reduced. 8. Right ventricular chamber dimension is moderately enlarged. 9. Left atrial chamber dimension is moderately enlarged. 10. Right atrial chamber dimension is moderately enlarged. 11. The mitral valve has mildly calcified annulus. 12. There is mild mitral valve regurgitation. 13. There is trace tricuspid valve regurgitation. 14. Mild pulmonary hypertension, estimated pulmonary arterial systolic pressure is 46 mmHg. Left Ventricle E/e' 11 is mildly elevated. Probably in atrial fibrillation. Left ventricular chamber dimension is normal. Left ventricular systolic function is normal, estimated at 60-65%. The left ventricular diastolic function is abnormal. Right Ventricle Right ventricular systolic function is moderately reduced. Moderator band is noted which is normal variant. Right ventricular chamber dimension is moderately enlarged. Left Atria Left atrial chamber dimension is moderately enlarged. Right Atria Right atrial chamber dimension is moderately enlarged. Aortic Valve The aortic valve is not well visualized. There is no aortic valve stenosis. There is no aortic valve regurgitation. Pulmonic Valve There is no pulmonic regurgitation. Mitral Valve The mitral valve has mildly calcified annulus. There is no mitral valve stenosis. There is mild mitral valve regurgitation. Tricuspid Valve There is trace tricuspid valve regurgitation. Mild pulmonary hypertension, estimated pulmonary arterial systolic pressure is 46 mmHg. Pericardium/Pleural There is no pericardial effusion. Inferior Vena Cava Normal inferior vena cava with >50% collapse upon inspiration consistent with normal right atrial pressure, 5 mmHg. Aorta The aortic root size at the sinus of Valsalva is normal. Left Ventricular Outflow Tract Name Value Normal LVOT 2D LVOT Diameter 2.1 cm LVOT Doppler LVOT Peak Gradient 5 mmHg LVOT Mean Gradient 3 mmHg LVOT VTI
[2020-10-06] MEDS: IPRATROPIUM BR 0.02% INH SOLN 0.5 MG/2.5 ML VIAL INHALATION ×4 (02:10→19:31)
[2020-10-06 05:29] LABS: Hematocrit 23.5 % (42.0-52.0); Hemoglobin 7.5 g/dL (14.0-18.0); Mean Corpuscular HGB Conc 31.9 g/dl (32-36); Mean Corpuscular Hemoglobin 29.6 pg (26-34); Mean Corpuscular Volume 92.9 fl (80-100); Mean Platelet Volume 11.1 fl (7.4-10.4); Platelet Count Result 228 k/mm3 (150-375); Red Blood Count 2.53 M/mm3 (4.6-6.20); Red Cell Distribution Width 18.5 % (11.5-14.5)
[2020-10-06 05:35] LABS: INR 1.9; Prothrombin Time 22.5 Seconds (11.1-14.7)
[2020-10-06 05:48] LABS: Blood Urea Nitrogen 13 mg/dL (9-20); Calcium 8.9 mg/dL (8.4-10.2); Carbon Dioxide > 40 mmol/L (22-30); Chloride 93 mmol/L (98-107); Estimated CRCL calculation 83 ml/min; Estimated Glomerular Filt Rate > 60; Glucose 98 mg/dL (75-110); Potassium 3.9 mmol/L (3.4-5.0); Sodium 137 mmol/L (137-145)
[2020-10-06] MEDS: CENTRAL LINE FLUSH 10 ML IV PUSH ×3 (06:05→20:32)
[2020-10-06 06:21] LABS: Large Platelets Present; Lymphocytes Absolute Manual 1.08 K/mm3 (1.1-4.5); Monocytes Percent Manual 40 % (3-9); Neutrophils Percent Manual 24 % (46-73); Nucleated Red Blood Cells 12 %; Platelet Estimate Adequate (Adequate); Total Cells Counted 100
[2020-10-06 06:23] LABS: Hypochromasia 1+ (NORMAL)
[2020-10-06 06:26] LABS: Ovalocytes 1+ (NORMAL)
[2020-10-06] MEDS: BUDESONIDE RESPULE NEB 0.5 MG/2 ML AMP INHALATION ×2 (07:52→19:31)
[2020-10-06] MEDS: ENOXAPARIN 80 MG/0.8 ML SYRINGE 65 MG SUB-Q ×2 (09:02→20:31)
[2020-10-06] MEDS: MONTELUKAST SODIUM 10 MG TABLET PO (09:03)
[2020-10-06] MEDS: FUROSEMIDE 40 MG TABLET PO (09:03)
[2020-10-06] MEDS: CHOLECALCIFEROL 1,000 UNITS TABLET 2000 UNITS PO (09:03)
[2020-10-06] MEDS: ESCITALOPRAM OXALATE 10 MG TABLET PO (09:03)
[2020-10-06] MEDS: MULTIVITAMINS /C LUTEIN (CENTRUM SILVER) TABLET *BKC 1 TAB PO (09:03)
[2020-10-06] MEDS: PANTOPRAZOLE 40 MG TABLET PO (09:03)
[2020-10-06] MEDS: DIGOXIN TAB 125 MCG TABLET PO (09:03)
[2020-10-06] MEDS: METOPROLOL TARTRATE 25 MG TABLET PO ×2 (09:03→20:31)
[2020-10-06] MEDS: MAGNESIUM OXIDE 400 MG TABLET PO ×2 (09:03→17:36)
[2020-10-06] MEDS: THIAMINE HCL 100 MG TABLET PO (09:03)
[2020-10-06] MEDS: FOLIC ACID 1 MG TABLET PO (09:03)
[2020-10-06] MEDS: HYDROCORTISONE 5 MG TABLET PO (09:04)
[2020-10-06] MEDS: ASCORBIC ACID 500 MG TABLET 1000 MG PO (09:04)
[2020-10-06] MEDS: ACETAMINOPHEN 325 MG TABLET 650 MG PO (09:19)
--- NOTE | 2020-10-06 11:07 | PM.PNPUL ---
Progress Note: A&P Assessment and Plan (1) Pulmonary embolism: Code(s): I26.99 - Other pulmonary embolism without acute cor pulmonale Status: Acute Assessment and Plan: 10/02 Patient with acute pulmonary embolism while on rivaroxaban. LE Dopplers ordered, negative for DVT. Started on IV heparin drip and monitor for active bleeding. Of note patient has had a recent GI bleed requiring 4 units of packed red blood cells in 08/08. Since he failed rivaroxaban with lung cancer which is stable, warfarin was started per discussion with Hematology -Oncology. 10/03 Patient off noninvasive now, on 10 L NC and feels improved with no left sided CP. 10/04 He is using 8 L/min alternating with 35%; ABG this am was on 35% with mild hypoxemia, pO2 55.7, so needs more than 35%. 10/05 repeat echo pending to evaluate R heart function after PE 10/06 On warfarin with INR 1.9. Down to home O2 level of 6 L NC now (uses 6-8 L at home). Repeat echo pending. (2) Acute and chronic respiratory failure with hypercapnia: Code(s): J96.22 - Acute and chronic respiratory failure with hypercapnia Status: Acute Assessment and Plan: 10/02 Patient was placed on a VATS mode of noninvasive ventilation this morning for work of breathing and desaturations. Currently he is on AVAPS rate of 14, tidal volume 500, EPAP 5, inspiratory pressure minimum 7, inspiratory pressure maximum 25, rise of 1, inspiratory time 1.00 and patient says that he is comfortable. I have told him that he should wear this noninvasive ventilation p.r.n. for his comfort. 10/03 Patient with chronic respiratory failure with blood gas on 10/01 - on 100% non-rebreather of 7.37 / 67/322 and an elevated bicarb greater than 40. AVAPS rate of 14, tidal volume 500, EPAP 5, inspiratory pressure minimum 7, inspiratory pressure maximum 25, rise of 1, inspiratory time 1.00 and 40%. 10/04 ABG this am on hospital AVAPS rate 14, TV 500, EPAP 5, I min 6, I max 25 showed 7.427 / 65.4 / 55.7 /42.1 /88.6% with 35% O2 recorded. His acid base status is improved, needs more O2. He is a candidate for NPPV at home. 10/05 Stable on lower flow O2, 5-6 L/min; expet Trilogy NPPV to be delivered tomorrow. 10/06 Spot check of O2 sats last night 100% on 35%, continue for now. Agree with using trilogy inhouse with ABG and overnight oximetry once it is delivered. (3) End stage COPD: Code(s): J44.9 - Chronic obstructive pulmonary disease, unspecified Status: Acute Assessment and Plan: Patient with severe COPD, severe panlobular emphysema on his CT scan. I do not think he is having an active COPD exacerbation but rather his difficulty is due to his pulmonary embolism. Continue patient's current leave albuterol, ipratropium, and budesonide nebulizers. Although he previously refused CPAP -BiPAP in the clinic he is willing to try noninvasive ventilation at this time. Patient also stated that he wished to be full code. Will follow with you. Subjective Date/time seen: 10/06/20 11:07 Interval history: Date/time seen: Patient is a 75-year-old man with a history of COPD with chronic respiratory failure on 6-8 L NC oxygen at home, severe panlobular emphysema on CT chest, bilateral lung cancer diagnosed initially in 11/05 status post radiation and chemotherapy delivered by his oncologist in [facility]. Atrial fibrillation on rivaroxaban. Patient is followed in pulmonary clinic and was last seen on 09/24/2020 he was on triple inhalers, he continued to smoke. Is on home oxygen 6-8 L at home 11/04. Noninvasive ventilation was recommended to the patient but he refused. And the patient also has obstructive sleep apnea but refuses CPAP treatment. Patient continues to smoke. Patient presented to the emerg
--- NOTE | 2020-10-06 16:49 | PM.IMPN ---
Progress Note: A&P Assessment and Plan (1) Pulmonary embolism: Code(s): I26.99 - Other pulmonary embolism without acute cor pulmonale Status: Acute Assessment and Plan: Discussed case with Dr. Avila , pulmonary and his oncologist and since patient failed Xarelto treatment placeed on IV heparin with transition to warfarin therapy. Changed to Lovenox b.i.d. 10/03 INR was 1.5 on admission and confirms that he has taking the Xarelto faithfully the last 5 weeks Troponin is negative so do not suspect large clot burden and not seen on CT either Venous Doppler negative Echo today EF 60-65% with decreased right ventricular function and pulmonary artery pressure estimated at 46 INR 1.9 today after warfarin 5,5,7.5,9. Will give 7 mg warfarin today(D#5) and expect INR to be therapeutic 10/07 for discharge Care coordination checking with home health care to determine if they will be able to draw INRs with positive for COVID. (2) Acute and chronic respiratory failure with hypercapnia: Code(s): J96.22 - Acute and chronic respiratory failure with hypercapnia Status: Acute Assessment and Plan: Secondary to emboli. BiPAP as needed and treat emboli Agree with Dr. Avila that does not appear to be COPD exacerbation but more secondary to his emboli O2 requirements now the same as those at home Pulmonary trying to arrange for possible trilogy unit at home at home with COVID and asymptomatic. Tested positive 10/03 for preop evaluation. , daughter and are deciding whether patient to return home or go to facility. She will need to quarantine as best she can until 10/13. Discussed case with ID and with every institution in the area containing COVID cases. It may be best for patient to return home with , using masks indoors, sleeping in separate bedrooms, until quarantine complete (3) Chronic atrial fibrillation: Code(s): I48.20 - Chronic atrial fibrillation, unspecified Status: Acute Assessment and Plan: Ventricular response fairly well controlled continue beta-salinas, calcium channel salinas, and Lanoxin echo echo as above (4) Alcohol dependence, in remission: Code(s): F10.21 - Alcohol dependence, in remission Status: Acute Assessment and Plan: Cover with thiamin since BMI is toward the low side (5) Non-small cell lung cancer: Qualifiers: Laterality: unspecified laterality Qualified Code(s): C34.90 - Malignant neoplasm of unspecified part of unspecified bronchus or lung Code(s): C34.90 - Malignant neoplasm of unspecified part of unspecified bronchus or lung Status: Chronic Assessment and Plan: Remains in remission and will continue follow-up with his oncologist (6) Essential (primary) hypertension: Code(s): I10 - Essential (primary) hypertension Status: Acute Assessment and Plan: Blood pressure adequate on his usual medications (7) Anemia: Qualifiers: Anemia type: unspecified type Qualified Code(s): D64.9 - Anemia, unspecified Code(s): D64.9 - Anemia, unspecified Status: Chronic Assessment and Plan: Probable multifactorial including chronic disease possibly from past blood loss. Hemoglobin 7.5 today with normal iron studies and B12 1 unit packed rbc 10/04 when dipped to 6.6 Continue to follow all while anticoagulating especially in light of previous GI bleeding 08/08 Subjective Date/time seen: 10/06/20 16:49 Interval history: Date of visit 10/06. 75-year-old hypertensive white male with COPD on home O2 and history of non small cell CA lung in remission with ongoing treatments presented to the emergency room with acute on chronic respiratory failure and left-sided chest pain. CTA revealed pulmonary emboli bilaterally and patient had been taking Xarelto for AFib. Switched IV heparin and still some shortness of breath but left-sided chest pain has resolved.
[2020-10-06] MEDS: WARFARIN (*PBKC) 2 MG TABLET PO (17:36)
[2020-10-06] MEDS: WARFARIN (*PBKC) 5 MG TABLET PO (17:36)
[2020-10-07] VITALS (20 sets, daily range): BP systolic 95–115; BP diastolic 46–67; PULSE 64–102; RESP 18–22; TEMP 36.2–37.1; O2SAT 91–100
[2020-10-07] MEDS: IPRATROPIUM BR 0.02% INH SOLN 0.5 MG/2.5 ML VIAL INHALATION ×4 (01:48→20:25)
[2020-10-07 05:07] LABS: Hematocrit 23.2 % (42.0-52.0); Hemoglobin 7.3 g/dL (14.0-18.0); Mean Corpuscular HGB Conc 31.5 g/dl (32-36); Mean Corpuscular Hemoglobin 29.3 pg (26-34); Mean Corpuscular Volume 93.2 fl (80-100); Mean Platelet Volume 11.2 fl (7.4-10.4); Platelet Count Result 177 k/mm3 (150-375); Red Blood Count 2.49 M/mm3 (4.6-6.20); Red Cell Distribution Width 18.3 % (11.5-14.5); White Blood Count 3.8 K/mm3 (4.5-10.0)
[2020-10-07 05:25] LABS: Prothrombin Time 31.3 Seconds (11.1-14.7)
[2020-10-07] MEDS: CENTRAL LINE FLUSH 10 ML IV PUSH ×3 (06:12→20:52)
[2020-10-07] MEDS: BUDESONIDE RESPULE NEB 0.5 MG/2 ML AMP INHALATION ×2 (08:39→20:24)
[2020-10-07 08:50] LABS: Hematocrit 24.8 % (42.0-52.0); Hemoglobin 7.6 g/dL (14.0-18.0)
[2020-10-07] MEDS: ENOXAPARIN 80 MG/0.8 ML SYRINGE 65 MG SUB-Q (09:59)
[2020-10-07] MEDS: DIGOXIN TAB 125 MCG TABLET PO (09:59)
[2020-10-07] MEDS: MAGNESIUM OXIDE 400 MG TABLET PO ×2 (10:01→16:49)
[2020-10-07] MEDS: CHOLECALCIFEROL 1,000 UNITS TABLET 2000 UNITS PO (10:02)
[2020-10-07] MEDS: FOLIC ACID 1 MG TABLET PO (10:02)
[2020-10-07] MEDS: FUROSEMIDE 40 MG TABLET PO (10:02)
[2020-10-07] MEDS: ESCITALOPRAM OXALATE 10 MG TABLET PO (10:02)
[2020-10-07] MEDS: THIAMINE HCL 100 MG TABLET PO (10:02)
[2020-10-07] MEDS: HYDROCORTISONE 5 MG TABLET PO (10:02)
[2020-10-07] MEDS: PANTOPRAZOLE 40 MG TABLET PO (10:02)
[2020-10-07] MEDS: MONTELUKAST SODIUM 10 MG TABLET PO (10:03)
[2020-10-07] MEDS: METOPROLOL TARTRATE 25 MG TABLET PO ×2 (10:03→20:51)
[2020-10-07] MEDS: MULTIVITAMINS /C LUTEIN (CENTRUM SILVER) TABLET *BKC 1 TAB PO (10:03)
[2020-10-07] MEDS: ASCORBIC ACID 500 MG TABLET 1000 MG PO (10:03)
--- NOTE | 2020-10-07 11:00 | PM.PNPUL ---
Progress Note: A&P Assessment and Plan (1) Pulmonary embolism: Code(s): I26.99 - Other pulmonary embolism without acute cor pulmonale Status: Acute Assessment and Plan: 10/02 Patient with acute pulmonary embolism while on rivaroxaban. LE Dopplers ordered, negative for DVT. Started on IV heparin drip and monitor for active bleeding. Of note patient has had a recent GI bleed requiring 4 units of packed red blood cells in 08/08. Since he failed rivaroxaban with lung cancer which is stable, warfarin was started per discussion with Hematology -Oncology. 10/03 Patient off noninvasive now, on 10 L NC and feels improved with no left sided CP. 10/04 He is using 8 L/min alternating with 35%; ABG this am was on 35% with mild hypoxemia, pO2 55.7, so needs more than 35%. 10/05 repeat echo pending to evaluate R heart function after PE 10/06 On warfarin with INR 1.9. Down to home O2 level of 6 L NC now (uses 6-8 L at home). Echo 10/06 Summary 1. Complete two-dimensional, color flow and Doppler transthoracic echocardiogram is performed. 2. Left ventricular chamber dimension is normal. 3. Left ventricular systolic function is normal, estimated at 60-65%. 4. The left ventricular diastolic function is abnormal. 5. E/e' 11 is mildly elevated. 6. Probably in atrial fibrillation. 7. Right ventricular systolic function is moderately reduced. 8. Right ventricular chamber dimension is moderately enlarged. 9. Left atrial chamber dimension is moderately enlarged. 10. Right atrial chamber dimension is moderately enlarged. 11. The mitral valve has mildly calcified annulus. 12. There is mild mitral valve regurgitation. 13. There is trace tricuspid valve regurgitation. 14. Mild pulmonary hypertension, estimated pulmonary arterial systolic pressure is 46 mmHg. Per cardiology note Echo 12/09/2017 with EF 50-55%, mild RV hypokinesis, mild LAE, mild MR. 10/07 Back to baseline, INR 3.0 today, on home O2 of 6 L now with sats 97%. He will need INR monitoring set up. Awaiting home noninvasive ventilator set up otherwise stable from pulmonary perspective for discharge. tested positive for COVID and I told patient that he should be completely quarantined from her for at least 14 days given that a COVID infection for him, with his severe COPD, would likely be life threatening. (2) Acute and chronic respiratory failure with hypercapnia: Code(s): J96.22 - Acute and chronic respiratory failure with hypercapnia Status: Acute Assessment and Plan: 10/02 Patient was placed on a VATS mode of noninvasive ventilation this morning for work of breathing and desaturations. Currently he is on AVAPS rate of 14, tidal volume 500, EPAP 5, inspiratory pressure minimum 7, inspiratory pressure maximum 25, rise of 1, inspiratory time 1.00 and patient says that he is comfortable. I have told him that he should wear this noninvasive ventilation p.r.n. for his comfort. 10/03 Patient with chronic respiratory failure with blood gas on 10/01 - on 100% non-rebreather of 7.37 / 67/322 and an elevated bicarb greater than 40. AVAPS rate of 14, tidal volume 500, EPAP 5, inspiratory pressure minimum 7, inspiratory pressure maximum 25, rise of 1, inspiratory time 1.00 and 40%. 10/04 ABG this am on hospital AVAPS rate 14, TV 500, EPAP 5, I min 6, I max 25 showed 7.427 / 65.4 / 55.7 /42.1 /88.6% with 35% O2 recorded. His acid base status is improved, needs more O2. He is a candidate for NPPV at home. 10/05 Stable on lower flow O2, 5-6 L/min; expet Trilogy NPPV to be delivered tomorrow. 10/06 Spot check of O2 sats last night 100% on 35%, continue for now. Agree with using trilogy inhouse with ABG and overnight oximetry once it is delivered. 10/07 awaiting set up of home trilogy. (3) End stage COPD: Code(s): J44.9 - C
--- NOTE | 2020-10-07 13:53 | PCRCNOTE ---
SPOKE TO ANGELICA FROM [facility] IN REGARDS TO TRILOGY, SHE HAS A THERAPIST BRINGING UP A UNIT TO THE HOSPITAL ROOM NOW FOR BRAYDEN DELAROSA.
[2020-10-07 15:02] LABS: Hemoglobin 7.6 g/dL (14.0-18.0)
[2020-10-07] MEDS: WARFARIN (*PBKC) 5 MG TABLET PO (16:50)
[2020-10-07] MEDS: WARFARIN (*PBKC) 2 MG TABLET PO (16:50)
--- NOTE | 2020-10-07 17:37 | PM.IMPN ---
Progress Note: A&P Assessment and Plan (1) Pulmonary embolism: Code(s): I26.99 - Other pulmonary embolism without acute cor pulmonale Status: Acute Assessment and Plan: While on novel anticoagulants. (2) Acute and chronic respiratory failure with hypercapnia: Code(s): J96.22 - Acute and chronic respiratory failure with hypercapnia Status: Acute Assessment and Plan: Likely secondary to PE superimposed on severe emphysema. Currently he is back to his usual Will try Trilogy tonight Discussed with Life Science Technical Officer Dr. Art (3) Person under investigation for severe acute respiratory syndrome coronavirus 2 (SARS-CoV-2) infection: Code(s): Z20.822 - Contact with and (suspected) exposure to COVID-19 Status: Acute Assessment and Plan: Ruled out (4) Alcohol dependence, in remission: Code(s): F10.21 - Alcohol dependence, in remission Status: Acute Assessment and Plan: Continue to encourage abstinence. (5) Chronic atrial fibrillation: Code(s): I48.20 - Chronic atrial fibrillation, unspecified Status: Acute Assessment and Plan: Rate controlled Started Coumadin. (6) Frailty: Code(s): R54 - Age-related physical debility Status: Acute Assessment and Plan: Likely secondary to advance emphysema. (7) Emphysema/COPD: Qualifiers: Emphysema type: unspecified Qualified Code(s): J43.9 - Emphysema, unspecified Code(s): J43.9 - Emphysema, unspecified Status: Acute Assessment and Plan: Continue supplemental O2 Trilogy at night time (8) Non-small cell lung cancer: Qualifiers: Laterality: unspecified laterality Qualified Code(s): C34.90 - Malignant neoplasm of unspecified part of unspecified bronchus or lung Code(s): C34.90 - Malignant neoplasm of unspecified part of unspecified bronchus or lung Status: Chronic Assessment and Plan: Follows up in the outpatient setting. Subjective Date/time seen: 10/07/20 17:37 I feel fine. I want to go home. Review of Systems Review of Systems: Narrative: Patient presented to ED due to worsening sob, found to have a PE. Respiratory: Comments: SOB,on supplemental O2. Gastrointestinal: Comments: no n/v/abdominal pain. Musculoskeletal: Comments: patient only walks short distances, uses wheelchair. Integumentary/Breasts: Comments: no rashes. Neurologic: Comments: no sensory motor deficit. Exam Narrative: Exam Narrative: Ling in bed. Const: General: no acute distress, alert, awake and other (Chronically ill looking.) Nutritional Appearance: cachectic Orientation/consciousness: patient oriented x3 Limitations: physical limitations Other: Wheel chair mostly. HENMT: Head: normal to inspection and normocephalic General nose exam: Normal external nose present Face and sinus: normal facial exam Eyes: Pupils: Equal, round and reactive pupils present EOM: EOMs intact bilaterally Neck: Neck: no lymphadenopathy, supple and no JVD Lymphatic: no lymphadenopathy noted Resp: Auscultation: diminished lung sounds Cardio: Jugular venous distension: no JVD Rate: regular rate Rhythm: regular rhythm GI: GI Palp: Yes Soft to palpation and Yes No hepatosplenomegaly present Skin: Rashes: no rashes Neuro: General: patient oriented x3 and CN's II-XI intact bilaterally Cranial nerves: Yes CN's II-XII intact bilaterally and Yes Equal, round and reactive pupils present Cognition (Neuro): normal cognition Speech: normal speech Extrem: General: no pedal edema Objective Data Vital Signs Vital Signs: Vital Signs - 24 hr 10/06/20 19:31 10/06/20 19:41 10/06/20 19:56 Temperature 99 F Pulse Rate 79 81 102 H Respiratory Rate 20 20 20 Blood Pressure 107/47 L Pulse Oximetry 95 97 10/06/20 20:00 10/06/20 20:31 10/06/20 23:52 Temperature 97.5 F L Pulse Rate 102 H 102 H 96 Respiratory Rate 20 20 Blood Pressure
[2020-10-07 18:38] LABS: SARS-CoV-2 RNA PCR Negative
[2020-10-07 21:01] LABS: Hematocrit 22.6 % (42.0-52.0); Hemoglobin 7.2 g/dL (14.0-18.0)
--- NOTE | 2020-10-07 22:07 | PC.NURSE ---
PATIENT IS REFUSING TO WEAR HIS TRILOGY.
--- NOTE | 2020-10-08 00:39 | PC.NURSE ---
PATIENT REFUSING SLEEP STUDY. STATED THAT IF HE DOESN'T GET DISCHARGED TOMORROW HE IS LEAVING AMA.
[2020-10-08] MEDS: IPRATROPIUM BR 0.02% INH SOLN 0.5 MG/2.5 ML VIAL INHALATION ×3 (01:51→13:44)
[2020-10-08 01:54] VITALS: PULSE 66; RESP 18
--- NOTE | 2020-10-08 01:54 | PCRCNOTE ---
Patient was unable to tolerate the use of home trilogy unit; The apnea study was stopped; RT tried to explain the importance of the study to no avail
[2020-10-08 05:45] VITALS: BP 107/53; PULSE 86; RESP 22; TEMP 36.4; O2SAT 94
[2020-10-08 08:00] VITALS: PULSE 82; RESP 18; O2SAT 95
[2020-10-08] MEDS: BUDESONIDE RESPULE NEB 0.5 MG/2 ML AMP INHALATION (08:00)
--- NOTE | 2020-10-08 08:40 | PM.PNPUL ---
Progress Note: A&P Assessment and Plan (1) Pulmonary embolism: Code(s): I26.99 - Other pulmonary embolism without acute cor pulmonale Status: Acute Assessment and Plan: 10/02 Patient with acute pulmonary embolism while on rivaroxaban. LE Dopplers ordered, negative for DVT. Started on IV heparin drip and monitor for active bleeding. Of note patient has had a recent GI bleed requiring 4 units of packed red blood cells in 08/08. Since he failed rivaroxaban with lung cancer which is stable, warfarin was started per discussion with Hematology -Oncology. 10/03 Patient off noninvasive now, on 10 L NC and feels improved with no left sided CP. 10/04 He is using 8 L/min alternating with 35%; ABG this am was on 35% with mild hypoxemia, pO2 55.7, so needs more than 35%. 10/05 repeat echo pending to evaluate R heart function after PE 10/06 On warfarin with INR 1.9. Down to home O2 level of 6 L NC now (uses 6-8 L at home). Echo 10/06 Summary 1. Complete two-dimensional, color flow and Doppler transthoracic echocardiogram is performed. 2. Left ventricular chamber dimension is normal. 3. Left ventricular systolic function is normal, estimated at 60-65%. 4. The left ventricular diastolic function is abnormal. 5. E/e' 11 is mildly elevated. 6. Probably in atrial fibrillation. 7. Right ventricular systolic function is moderately reduced. 8. Right ventricular chamber dimension is moderately enlarged. 9. Left atrial chamber dimension is moderately enlarged. 10. Right atrial chamber dimension is moderately enlarged. 11. The mitral valve has mildly calcified annulus. 12. There is mild mitral valve regurgitation. 13. There is trace tricuspid valve regurgitation. 14. Mild pulmonary hypertension, estimated pulmonary arterial systolic pressure is 46 mmHg. Per cardiology note Echo 12/09/2017 with EF 50-55%, mild RV hypokinesis, mild LAE, mild MR. 10/07 Back to baseline, INR 3.0 today, on home O2 of 6 L now with sats 97%. He will need INR monitoring set up. Awaiting home noninvasive ventilator set up otherwise stable from pulmonary perspective for discharge. tested positive for COVID and I told patient that he should be completely quarantined from her for at least 14 days given that a COVID infection for him, with his severe COPD, would likely be life threatening. 10/08 Ready for discharge from pulmonary perspective. Needs INR monitoring set up as outpatient. Need to verify he has no chance of getting COVID from his if he is going home. (2) Acute and chronic respiratory failure with hypercapnia: Code(s): J96.22 - Acute and chronic respiratory failure with hypercapnia Status: Acute Assessment and Plan: 10/02 Patient was placed on a VATS mode of noninvasive ventilation this morning for work of breathing and desaturations. Currently he is on AVAPS rate of 14, tidal volume 500, EPAP 5, inspiratory pressure minimum 7, inspiratory pressure maximum 25, rise of 1, inspiratory time 1.00 and patient says that he is comfortable. I have told him that he should wear this noninvasive ventilation p.r.n. for his comfort. 10/03 Patient with chronic respiratory failure with blood gas on 10/01 - on 100% non-rebreather of 7.37 / 67/322 and an elevated bicarb greater than 40. AVAPS rate of 14, tidal volume 500, EPAP 5, inspiratory pressure minimum 7, inspiratory pressure maximum 25, rise of 1, inspiratory time 1.00 and 40%. 10/04 ABG this am on hospital AVAPS rate 14, TV 500, EPAP 5, I min 6, I max 25 showed 7.427 / 65.4 / 55.7 /42.1 /88.6% with 35% O2 recorded. His acid base status is improved, needs more O2. He is a candidate for NPPV at home. 10/05 Stable on lower flow O2, 5-6 L/min; expet Trilogy NPPV to be delivered tomorrow. 10/06 Spot check of O2 sats last night 100% on 35%, continue for now. Agree with using trilogy inhouse with ABG and overnight oxime
[2020-10-08 08:57] VITALS: PULSE 82
[2020-10-08] MEDS: DIGOXIN TAB 125 MCG TABLET PO (08:57)
[2020-10-08] MEDS: MONTELUKAST SODIUM 10 MG TABLET PO (08:57)
[2020-10-08] MEDS: CHOLECALCIFEROL 1,000 UNITS TABLET 2000 UNITS PO (08:57)
[2020-10-08] MEDS: THIAMINE HCL 100 MG TABLET PO (08:57)
[2020-10-08] MEDS: METOPROLOL TARTRATE 25 MG TABLET PO (08:57)
[2020-10-08] MEDS: ESCITALOPRAM OXALATE 10 MG TABLET PO (08:57)
[2020-10-08] MEDS: MAGNESIUM OXIDE 400 MG TABLET PO (08:58)
[2020-10-08] MEDS: MULTIVITAMINS /C LUTEIN (CENTRUM SILVER) TABLET *BKC 1 TAB PO (08:58)
[2020-10-08] MEDS: ASCORBIC ACID 500 MG TABLET 1000 MG PO (08:58)
[2020-10-08] MEDS: FUROSEMIDE 40 MG TABLET PO (08:58)
[2020-10-08] MEDS: HYDROCORTISONE 5 MG TABLET PO (08:58)
[2020-10-08] MEDS: PANTOPRAZOLE 40 MG TABLET PO (08:58)
[2020-10-08] MEDS: FOLIC ACID 1 MG TABLET PO (08:58)
[2020-10-08] MEDS: CENTRAL LINE FLUSH 10 ML IV PUSH (09:00)
[2020-10-08 10:04] LABS: INR 3.4; Prothrombin Time 34.8 Seconds (11.1-14.7)
--- NOTE | 2020-10-08 13:24 | PM.DS ---
DS: Admitting Diagnosis Admitting Diagnosis Admitting Diagnosis: Pulmonary embolism: (2) Acute and chronic respiratory failure with hypercapnia: (3) Chronic atrial fibrillation: (4) Alcohol dependence, in remission: (5) Non-small cell lung cancer: (6) Essential (primary) hypertension: (7) Anemia: DS: Discharge Diagnosis Discharge Diagnosis (1) Acute respiratory failure with hypoxia and hypercarbia: Code(s): J96.01 - Acute respiratory failure with hypoxia; J96.02 - Acute respiratory failure with hypercapnia Status: Acute (2) Pulmonary embolism: Code(s): I26.99 - Other pulmonary embolism without acute cor pulmonale Status: Acute (3) Acute and chronic respiratory failure with hypercapnia: Code(s): J96.22 - Acute and chronic respiratory failure with hypercapnia Status: Acute (4) COPD with acute exacerbation: Onset Date: Unknown Code(s): J44.1 - Chronic obstructive pulmonary disease with (acute) exacerbation Status: Acute (5) Chronic atrial fibrillation: Code(s): I48.20 - Chronic atrial fibrillation, unspecified Status: Acute (6) GERD without esophagitis: Code(s): K21.9 - Gastro-esophageal reflux disease without esophagitis Status: Acute (7) Essential (primary) hypertension: Code(s): I10 - Essential (primary) hypertension Status: Acute (8) Alcohol dependence, in remission: Code(s): F10.21 - Alcohol dependence, in remission Status: Acute DS: Summary Hospital Course Hospital Course: Date of visit 10/02. Mundo Robles is a 75 year old male with small cell adenocarcinoma of the lung, COPD on home O2, chronic AFib and hypertension who presented to the emergency room with left-sided pleuritic chest pain he usually wears 6 L nasal cannula at home and was slightly hypoxic so CTA was performed was found to have Pulmonary emboli of the right upper right lower and left upper lobe were found on CT scan. Significantly he has been on Xarelto which he states he takes it. He had been off of Xarelto for a short time in July after upper GI bleeding secondary to ulcer but had restarted his dosing 08/26/2020. He continues to follow-up with oncology at [facility] Dr. Chad Jarvis and receives chemotherapy on a three-month basis now. Original lung carcinoma diagnosed in 2016 with no evidence of recurrence on follow-up with treatment. He has chronic severe bullous emphysema with some attenuated vasculature in the areas of the large Brock that were present on CT scan o on 06/05/2019. on the CT angiogram on 10/01 there was a new filling defect in the right lower lobe. There was also a new lesion in the right upper lobe with market progression from 2019. In the left upper lobe the filling deficit was much more prominent than it was in 2019. This was consistent with acute pulmonary. Patient required BiPAP for respiratory failure and distress. 10/02 Patient with acute pulmonary embolism while on rivaroxaban. LE Dopplers ordered, negative for DVT. Started on IV heparin drip and monitor for active bleeding. Of note patient has had a recent GI bleed requiring 4 units of packed red blood cells in 08/08. Since he failed rivaroxaban with lung cancer which is stable, warfarin was started per discussion with Hematology -Oncology. 10/03 Patient off noninvasive now, on 10 L NC and feels improved with no left sided CP. 10/04 He is using 8 L/min alternating with 35%; ABG this am was on 35% with mild hypoxemia, pO2 55.7, so needs more than 35%. 10/05 repeat echo pending to evaluate R heart function after PE 10/06 On warfarin with INR 1.9. Down to home O2 level of 6 L NC now (uses 6-8 L at home). EXAMINATION: CTA chest PE protocol DATE: 10/01/2020 17:09 INDICATION: Chest pain. Shortness of breath. TECHNIQUE: Computed tomography angiography (CTA) of the chest was performed with 100 mL Omnipaque-350 intravenous
[2020-10-08] MEDS: HEPARIN SOD FLUSH 500 UNITS/5 ML SYRINGE IV PUSH (14:13)
--- NOTE | 2020-10-08 15:27 | PCRCNOTE ---
ADELAIDA NOTIFIED OF PT DISCHARGE TODAY. ADELAIDA TO GO TO PT'S HOME TO TITRATE TRILOGY SETTTINGS.
== END 2020-10-08 15:34 | disposition home health service (06) | DRG 175 ==
LOC: ANHED 15:09 → ANHIMU 20:26 → ANH3MEDSUR 10-10 13:14 → ANHIMU 10-10 13:14
PROVIDERS: Family Medicine; Internal Medicine; Internal Medicine Pulmonary Disease; Physician Assistant; Admitting Provider Internal Medicine; Emergency Provider Emergency Medicine; PCP Family Medicine; Visit Provider Internal Medicine
DX: I26.99 Other pulmonary embolism without acute cor pulmonale (principal); J96.22 Acute and chronic respiratory failure with hypercapnia; J96.11 Chronic respiratory failure with hypoxia; I48.20 Chronic atrial fibrillation, unspecified; C34.92 Malignant neoplasm of unspecified part of left bronchus or lung; C34.91 Malignant neoplasm of unspecified part of right bronchus or lung; J43.1 Panlobular emphysema; Z20.828 Contact with and (suspected) exposure to other viral communicable diseases; F03.90 Unspecified dementia, unspecified severity, without behavioral disturbance, psychotic disturbance, mood disturbance, and anxiety; F17.210 Nicotine dependence, cigarettes, uncomplicated; F10.21 Alcohol dependence, in remission; D64.9 Anemia, unspecified; G47.33 Obstructive sleep apnea (adult) (pediatric); K21.9 Gastro-esophageal reflux disease without esophagitis; I11.0 Hypertensive heart disease with heart failure; I50.9 Heart failure, unspecified; Z79.01 Long term (current) use of anticoagulants; Z79.899 Other long term (current) drug therapy; Z92.21 Personal history of antineoplastic chemotherapy; Z92.3 Personal history of irradiation; Z99.81 Dependence on supplemental oxygen
CPT/HCPCS: 36415; 36430; 36600; 71045; 71275; 80048; 82274; 82375; 82607; 82728; 82805; 83050; 83540; 83550; 83735; 83880; 84100; 84484; 85014; 85018; 85025; 85027; 85610; 85730; 86850; 86900; 86901; 86923; 87040; 87804; 93005; 93306; 93970; 94002; 94003; 94640; 94762; 96365; 96375; 97161; 97165; 99291; A9270; C9803; J0131; J1642; J1644; J1650; J7050; P9016; Q9967; U0003; U0005

== ENCOUNTER 2020-10-13 10:28 | Outpatient (NON) | payer OTHER, SELFPAY ==
[2020-10-13 11:01] LABS: Prothrombin Time 39.7 Seconds (11.1-14.7)
== END 2020-10-13 10:29 ==
PROVIDERS: PCP Family Medicine; Visit Provider Internal Medicine
DX: I26.99 Other pulmonary embolism without acute cor pulmonale (principal)
CPT/HCPCS: 85610

== ENCOUNTER 2020-10-21 15:22 | Outpatient (NON) | payer OTHER, SELFPAY ==
[2020-10-21 17:05] LABS: INR 4.5; Prothrombin Time 42.8 Seconds (11.1-14.7)
== END 2020-10-21 15:23 ==
LOC: HOME HLTH 15:24
PROVIDERS: PCP Family Medicine; Visit Provider Family Medicine
DX: I26.99 Other pulmonary embolism without acute cor pulmonale (principal)
CPT/HCPCS: 85610

== ENCOUNTER 2020-10-30 10:01 | Inpatient (IN) | payer OTHER, SELFPAY ==
[2020-10-30] VITALS (65 sets, daily range): BP systolic 101–129; BP diastolic 59–98; PULSE 91–163; RESP 15–28; TEMP 36.2–36.7; O2SAT 70–100; BMI 18.1
--- NOTE | ~2020-10-30 | XR_ITS ---
XR chest 1V portable 10/30/2020 11:13 Indication: Shortness of breath and chest pain Procedure: AP portable chest Comparison: 10/01/2020 Findings: Portacatheter tip in the SVC near the cavoatrial junction. Chronic biapical pleural thicken ing/scarring. Extensive airspace disease has progressed which may represent edema and/or pneumonia. S mall pleural effusions. Impression: 1: Extensive bilateral airspace disease with progression, differential diagnosis includes edema and/o r pneumonia. 2: Small pleural effusions versus pleural thickening. Reviewed, dictated and finalized at location B. UCE MANAGER Impression: 1: Extensive bilateral airspace disease with progression, differential diagnosi s includes edema and/or pneumonia. 2: Small pleural effusions versus pleural thickening.
--- NOTE | ~2020-10-30 | XR_ITS ---
EXAMINATION: XR chest 1V portable INDICATION: Pneumonia, shortness of breath TECHNIQUE: Portable AP chest at 1520 hours COMPARISON: 10/30/2020 FINDINGS: A right internal jugular Port-A-Cath ends with its tip at the superior cavoatrial junction. There is chronic scarring of the upper lobes and right lower lobe. A small right pleural effusion is suggested. The heart size is normal for technique. There is no pneumothorax. IMPRESSION: 1. Stable areas of scarring in the lungs without acute superimposed airspace opacities. 2. Small right pleural effusion. Reviewed, dictated and finalized at location A. MENTAL METAL WORKER APPRENTICE IMPRESSION: 1. Stable areas of scarring in the lungs without acute superimposed airspace op acities. 2. Small right pleural effusion.
--- NOTE | 2020-10-30 10:07 | ECG_ITS ---
Measurements Intervals [place] Rate: 108 P: MO: 0 QRS: 92 QRSD: 85 T: 264 QT: 326 QTc: 437 Interpretive Statements ATRIAL FIBRILLATION WITH RAPID VENTRICULAR RESPONSE VENTRICULAR COUPLET RIGHT AXIS DEVIATION LOW QRS VOLTAGE IN LIMB LEADS CANNOT RULE OUT SEPTAL INFARCT, AGE INDETERMINATE ST-T WAVE ABNORMALITY IN ANTEROLAT/INF LEADS- CONSIDER ISCHEMIA BASELINE ARTIFACT- III, AVR, AVL, AVF, V1, V3-V6 ABNORMAL ECG Electronically Signed On 10-30-2020 11:04:55 STRIKE ON MACHINE OPERATOR by Gordon Jones D.O.
[2020-10-30] MEDS: IPRATROPIUM BR 0.02% INH SOLN 0.5 MG/2.5 ML VIAL 1 MG INHALATION (10:21)
[2020-10-30] MEDS: ALBUTEROL SULFATE NEB 2.5 MG/0.5 ML INH 20 MG INHALATION (10:21)
[2020-10-30] MEDS: methylPREDNISolone SOD SUCC 125 MG VIAL IV PUSH (10:40)
--- NOTE | 2020-10-30 10:45 | ED.GENADULT ---
HPI - General Adult General Chief complaint: Shortness of Breath/Dyspnea Stated complaint: SOB Time Seen by Provider: 10/30/20 10:04 Source: patient, family, EMS and old records reviewed Mode of arrival: EMS Limitations: no limitations History of Present Illness HPI narrative: Patient is a 75-year-old male who presents to emergency department for evaluation of shortness of breath and increasing weakness over the last 3 days patient with history of lung cancer and is currently smoking half a pack per day patient on arrival to emergency department appears uncomfortable with mild respiratory distress, patient is on his normal 6 L nasal cannula oxygen patient has been compliant with his medications per patient and his patient did refused to do breathing treatments yesterday and only did 1 treatment patient denies any new URI symptoms patient missed his last chemotherapy appointment and has a scheduled appointment for tomorrow patient missed his last chemotherapy appointment due to not feeling well. Patient is on a 3-month regimen of chemotherapy. Patient denies vomiting diarrhea. Patient for the last several weeks has had some mild low back pain denies injury or trauma notes minimal discomfort at this time. Patient denies chest pain. Patient is currently on Xarelto anticoagulation and has been compliant with this medication per patient and his . Patient is followed by oncology at [facility] Dr. Chad Jarvis Related Data Home Medications Medication Instructions Recorded Confirmed Centrum Silver 1 tablet PO DAILY 07/26/19 10/01/20 cholecalciferol (vitamin D3) 2,000 unit PO DAILY 07/26/19 10/01/20 thiamine HCl (vitamin B1) [Vitamin 100 mg PO DAILY 07/26/19 10/01/20 B-1] ascorbic acid (vitamin C) 1,000 mg PO DAILY 08/21/19 10/01/20 folic acid 1 mg PO DAILY 08/21/19 10/01/20 albuterol sulfate 2.5 mg INHALATION DAILY ml 08/29/19 10/01/20 montelukast 10 mg tablet 10 mg PO DAILY 05/21/20 10/01/20 digoxin 125 mcg PO DAILY 08/15/20 10/01/20 furosemide 40 mg PO DAILY 08/15/20 10/01/20 hydrocortisone 5 mg PO DAILY 08/15/20 10/01/20 melatonin 5 mg tablet 5 mg PO HS PRN tablet 08/27/20 10/01/20 albuterol sulfate [ProAir HFA] 1 inh INHALATION Q2-4H PRN 10/01/20 10/01/20 diltiazem HCl 120 mg PO BID 10/01/20 10/01/20 metoprolol tartrate 25 mg PO BID 10/01/20 10/01/20 Allergies Allergy/AdvReac Type Severity Reaction Status Date / Time No Known Drug Allergies Allergy Unknown Other Verified 10/30/20 10:15 Review of Systems Review of Systems: All systems reviewed & are unremarkable except as noted in HPI and below [facility] Past Medical History Medical History 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 Alcohol dependence, in remission Alcohol withdrawal Former heavy drinker. Anxiety Benign prostatic hyperplasia Bleeding duodenal ulcer EGD 08/07 with clipping of [place] vessel and subsequent chronic PPI. Transfuse 4 units of packed cells then Chronic anemia With history of blood transfusions. Chronic atrial fibrillation On long-term anticoagulation with rivaroxaban. Chronic respiratory failure with hypoxia and hypercapnia On chronic home O2 at 6 to 8 L. Colon polyp Congestive heart failure Last echocardiogram November 2018 demonstrated paradoxical septal wall motion consistent with IVCD or bundle branch block, EF of 50-55% diastolic dysfunction not assessed due to atrial fibrillation, mild right ventricular enlargement, mild enlargement of left atrium, mild mitral valve regurgitation, normal right ventricular systolic pressure 38, dilated IVC without respiratory collapse consistent with elevated right atrial pressure greater than 15 mmHg. Constipation Dementia Depression End stage COPD Erectile dysfunction Essential (primary) hypertension GERD without esophagitis Major depressive disorder, recurrent, mild Non-small cell lung cancer He is a patient of Dr. Chad Jarvis at [facility]
[2020-10-30 10:52] LABS: Alveolar/Arterial O2 Gradient 383.8 mmHg; Base Excess ABG 22.4 mEq/l (+/-2.0); Carboxyhemoglobin 1.5 % THb (0-2.0); Fractional Inspired Oxygen 100 %; HCO3 ABG 54.4 mEq/l (22.0-26.0); Methemoglobin ABG 0.2 %THb (0-1.5); Oxygen Content ABG 16.2 %vol (16.0-22.0); Oxygen Saturation ABG 99.2 % (95.0-100.0); Oxyhemoglobin 97.4 % THb (90.0-100.0); PO2 ABG 211.3 mmHg (80.0-100.0); PO2 FiO2 Ratio Arterial Blood 2.11 %; Reduced Hemoglobin 0.9 %THb (0-5.0); Total Hemoglobin 11.5 g/dL (12.0-18.0)
[2020-10-30 10:54] LABS: PCO2 ABG 117.9 mmHg (35.0-45.0); Site Drawn LEFT BRACHIAL; pH ABG 7.282 (7.350-7.450)
[2020-10-30 10:55] LABS: Device NON-REBREATHER MASK
--- NOTE | 2020-10-30 11:10 | PC.NURSE ---
patient resting on stretcher. has bipap on. see notes. received bedside report from Tashia CHAU. no change in condition. waiting for admission upstairs.
[2020-10-30 11:14] LABS: Basophils Percent Auto 0.2 % (0.2-1.2); Eosinophils Percent Auto 0.1 % (0-4.4); Hematocrit 26.3 % (42.0-52.0); Hemoglobin 7.8 g/dL (14.0-18.0); Immature Granulocyte Absolute 0.29 K/mm3 (0.00-0.031); Immature Granulocyte Percent A 1.5 % (0-0.5); Lymphocytes Absolute Auto 1.85 K/mm3 (0.9-3.2); Lymphocytes Percent Auto 9.4 % (18.3-44.2); Mean Corpuscular HGB Conc 29.7 g/dl (32-36); Mean Corpuscular Hemoglobin 30.7 pg (26-34); Mean Corpuscular Volume 103.5 fl (80-100); Mean Platelet Volume 10.8 fl (7.4-10.4); Monocytes Absolute Auto 2.6 K/mm3 (0.1-0.6); Monocytes Percent Auto 13.4 % (2.6-8.5); Neutrophils Absolute Auto 14.9 K/mm3 (1.3-6.7); Neutrophils Percent Auto 75.4 % (45.5-73.1); Nucleated Red Blood Cells Absolute Auto 0.3 K/mm3 (0.0-0.012); Nucleated Red Blood Cells Perc 1.6 % (0.0-0.2); Platelet Count Result 440 k/mm3 (150-375); Red Blood Count 2.54 M/mm3 (4.6-6.20); Red Cell Distribution Width 20.3 % (11.5-14.5); White Blood Count 19.7 K/mm3 (4.5-10.0)
[2020-10-30 11:26] LABS: Hypochromasia 1+ (NORMAL); INR 2.8; Platelet Estimate Increased (Adequate); Prothrombin Time 30.1 Seconds (11.1-14.7); Stomatocytes 1+ (NORMAL); Target Cells 1+ (NORMAL); Tear Drop Cells 1+ (NORMAL)
[2020-10-30 11:27] LABS: Anisocytosis 1+ (NORMAL); Macrocytosis 1+ (NORMAL); Microcytosis 1+ (NORMAL)
[2020-10-30 11:29] LABS: Lactic Acid Reflex 0.9 mmol/L (0.7-2.1)
[2020-10-30 11:35] LABS: Alanine Aminotransferase 16 U/L (4-50); Albumin Level 3.8 g/dL (3.5-5.1); Alkaline Phosphatase 107 U/L (38-126); Aspartate Amino Transferase 45 U/L (17-59); Bilirubin,Total 0.5 mg/dL (0.2-1.3); Blood Urea Nitrogen 20 mg/dL (9-20); Calcium 9.6 mg/dL (8.4-10.2); Carbon Dioxide > 40 mmol/L (22-30); Chloride 89 mmol/L (98-107); Estimated CRCL calculation 92 ml/min; Estimated Glomerular Filt Rate > 60; Glucose 100 mg/dL (75-110); Potassium 4.4 mmol/L (3.4-5.0); Sodium 142 mmol/L (137-145)
[2020-10-30 11:38] LABS: NT Pro B Type Natriuretic Pept 3390 PG/ML (5-100)
[2020-10-30 11:45] LABS: Troponin I < 0.012 ng/mL (0.000-0.034)
--- NOTE | 2020-10-30 13:34 | PC.NURSE ---
IV antibiotics started. all explained to . provider at bedside. no change in condition. alert. waiting for bed assignment.
[2020-10-30 13:36] LABS: Add Urine Microscopic? YES; Appearance Urine Clear (Clear); Bilirubin Urine Negative (Negative); Color Urine Yellow (Yellow); Glucose Urine UA Negative (Negative); Ketones Urine Trace mg/dL (Negative); Leukocyte Esterase Ur Trace LEU/UL (Negative); Nitrate Urine Negative (Negative); Protein Urine 1+ mg/dL (Negative); Specific Grav Ur 1.016 (1.001-1.035); Squamous Epithelial Cell Urine Rare /hpf (Few); Urobilinogen Urine Negative mg/dL (<2.0)
[2020-10-30 13:38] LABS: Blood Urine Negative (Negative)
[2020-10-30 13:58] LABS: Troponin I < 0.012 ng/mL (0.000-0.034)
--- NOTE | 2020-10-30 15:05 | PC.NURSE ---
updated. waiting for bed assignment upstairs still. will do covid swab when patient has bipap off next. resting on stretcher. on compliance monitor.
[2020-10-30] MEDS: LACTATED RINGERS 1,000 ML 75 ML IV CONT ×2 (15:10→21:21)
--- NOTE | 2020-10-30 16:32 | PC.NURSE ---
patient taking Bipap mask off again. states he wants it off for awhile . patient placed on NRB. provider aware. respiratory aware. repeat ABGs ordered. patient states he is thirsty. has had very little to drink for the last 3 days. ice water given.
[2020-10-30 17:09] LABS: Alveolar/Arterial O2 Gradient 172.4 mmHg; Base Excess ABG 21.6 mEq/l (+/-2.0); Carboxyhemoglobin 1.6 % THb (0-2.0); Fractional Inspired Oxygen 80 %; Methemoglobin ABG 0.2 %THb (0-1.5); Oxygen Content ABG 11.8 %vol (16.0-22.0); Oxygen Saturation ABG 99.7 % (95.0-100.0); Oxyhemoglobin 97.7 % THb (90.0-100.0); PO2 ABG 313.4 mmHg (80.0-100.0); PO2 FiO2 Ratio Arterial Blood 3.92 %; Reduced Hemoglobin 0.5 %THb (0-5.0); pH ABG 7.402 (7.350-7.450)
[2020-10-30 17:10] LABS: Device NON-REBREATHER MASK; Modified Allen's Test Pass; PCO2 ABG 80.6 mmHg (35.0-45.0); Site Drawn RIGHT RADIAL
--- NOTE | 2020-10-30 17:16 | PC.NURSE ---
respiratory at bedside. ABG's done. PA aware. orders for NC O2
--- NOTE | 2020-10-30 18:25 | PC.NURSE ---
patient refusing to wear bipap again. still in ED waiting for bed assignment upstairs. on 6L NC sats drop immediately to 84-88%. patient advised multiple times of need for bipap and increased O2. refuses to wear any masks. patient aware that he could be intubated and states I don't care . provider aware.
--- NOTE | 2020-10-30 18:55 | PC.NURSE ---
respiratory at bedside. patient placed back on bipap. patient advised multiple times on need and treatment plan.
--- NOTE | 2020-10-30 19:10 | PC.NURSE ---
patient with bipap off again. refuses to wear. transferring to 210 shortly. will take bipap upstairs.
--- NOTE | 2020-10-30 19:30 | ADMGEN ---
This patient, Mundo Robles, was admitted to IMU Room 210-01. Patient/family oriented to hospital policies and general routines including ID bracelet, bed and alarms, visiting hours, pain management, procedures, bathroom and other care routines, personal items, smoking policy, room service/diet, and visiting hours. Information on how to activate the Rapid Response Team has been discussed. Patient/Family are encouraged to report perceived risks to care and to ask questions if they do not understand what they are told or what they should do.
--- NOTE | 2020-10-30 19:39 | PC.NURSE ---
patient transferred to 210 via stretcher and on NRB due to c/o dyspnea. RN updated. patient transferred to care of RN in room on arrival.
[2020-10-30] MEDS: ALBUTEROL SULFATE NEB 2.5 MG/0.5 ML INH 5 MG INHALATION (20:15)
[2020-10-30] MEDS: IPRATROPIUM BR 0.02% INH SOLN 0.5 MG/2.5 ML VIAL INHALATION (20:16)
[2020-10-30] MEDS: FAMOTIDINE 20 MG/2 ML VIAL IV PUSH (20:19)
[2020-10-30] MEDS: methylPREDNISolone SOD SUCC 125 MG VIAL 80 MG IV PUSH ×2 (20:19→23:59)
--- NOTE | 2020-10-30 21:09 | PC.NURSE ---
Pt calling for help from his room. Pt removed bipap, O2 sat 64% on room air. Pt stating take this thing off. RN explained to pt that he cannot remove bipap without having some type of oxygen to place on immediately following. RT and RACHAEL Prieto at pt's bedside. O2 on bipap increased. Pt O2 sats recovering slowly. RACHAEL Prieto ordered Ativan to help pt relax and to help with bipap compliance.
[2020-10-30] MEDS: LORazepam INJ (*CRX) 2 MG/ML VIAL 0.5 MG IV PUSH (21:21)
[2020-10-30] MEDS: DIGOXIN INJ 250 MCG/ML 2 ML AMP (*BKC) IV PUSH (21:22)
--- NOTE | 2020-10-30 21:30 | PM.IMHP ---
H&P: HPI History of Present Illness Date/Time: 10/30/20 21:30 Chief Complaint: Shortness of breath Narrative: Mundo Robles is a 75 year old male who was recently discharged from here on 10/08/2020 due to acute on chronic respiratory failure with hypercapnia. The patient chronically wears oxygen 6 L at home. Patient has chronic atrial fibrillation and non-small cell lung cancer. The patient gets his cancer treatment at [facility]. The patient was found to have a pulmonary embolism his last admission and was placed on Coumadin and had been on Xarelto prior to that. Patient was taken off of Xarelto for brief period time due to GI bleed prior to discovering the PE. He also has COPD and continues to smoke at least a half a pack a cigarettes a day. He sees Dr. Chad Boucher at the [facility]. He had an echo while he was here and his systolic function was noted to be 60-65%. Today the patient was brought to the emergency room for evaluation of shortness of breath and increasing weakness over last 3 days. He continues to smoke a half pack a cigarettes per day. According to the she reported to EMS that the patient was compliant with his medications but he refused to do a breathing treatment yesterday and only did 1 treatment today. He missed his last chemotherapy appointment and has a scheduled appointment for tomorrow. He missed his last chemotherapy because he was not feeling well. The patient is on a 3 month regimen of chemotherapy. It is unclear whether the patient is on Coumadin or Xarelto. 19.7. H&H is 7.8 and 26.3 which is where his baseline is. Patient's initial pH on his ABGs was 7.282 and CO2 117.9. Patient was placed on a BiPAP and his pH came to 7.402 and CO2 was 80.6. The patient continued to be restless and was pulling off his BiPAP. Patient was found to be in AFib with RVR heart rate in the 130s to 140s. Patient was given Solu-Medrol, neb treatments, azithromycin, and Rocephin in the emergency room. Airspace disease with regression differential diagnosis includes edema or pneumonia. Small pleural effusion versus pleural thickening. Patient was swabbed for covid 19. Patient is being admitted to inpatient on the date of service of 10/30/2020. Review of Systems Review of Systems: All systems reviewed & are unremarkable except as noted in HPI and below Constitutional: Constitutional: Reports as per HPI and Reports no additional constitutional complaints Eyes: Eyes: Reports as per HPI and Reports no additional eye complaints ENT: Reports system reviewed and no additional complaints, except as documented and Reports Normal hearing present Cardiovascular: Cardiovascular: Reports no additional cardiovascular complaints Respiratory: Respiratory: Reports no additional respiratory complaints and Reports no additional respiratory complaints Gastrointestinal: Gastrointestinal: Reports as per HPI and Reports no additional gastrointestinal complaints Musculoskeletal: Musculoskeletal: Reports no additional musculoskeletal complaints Integumentary/Breasts: Skin/Breast: Reports system reviewed and no additional complaints, except as docu and Reports as per HPI Neurologic: Reports system reviewed and no additional complaints, except as documented, Reports as per HPI and Reports Normal hearing present Psychiatric: Psychiatric: Reports no additional psychiatric complaints and Reports as per HPI Endocrine: Endocrine: Reports no additional endocrine complaints Hematologic/Lymphatic: Hematologic/Lymphatic: Reports no additional hematologic/lymphatic complaints Allergic/Immunologic: Allergic/Immunologic: Reports no additional allergic/immunologic complaints PMFSH Past Medical History Medical History 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 Alcohol dependence, in remission Alcohol withdrawal Former heavy drinker. Anxiety Benign prostatic hyperplasia Bleeding d
[2020-10-31] VITALS (28 sets, daily range): BP systolic 100–114; BP diastolic 21–74; PULSE 61–138; RESP 18–26; TEMP 36–36.9; O2SAT 92–100; BMI 17.9
[2020-10-31] MEDS: METOPROLOL TARTRATE 25 MG TABLET PO ×3 (00:57→20:58)
--- NOTE | 2020-10-31 01:03 | PC.NURSE ---
Pt removed pulse ox. Upon entering the room, pt had removed his high flow nasal canula and placed it in his mouth. Pt's lips blue. HFNC placed back in pt's nose. O2 sat in the 70s. Discussed with pt the possibility of intubation. Pt does not recall previous conversation this evening regarding code status and intubation. Pt now states he would not want to be intubated if necessary. Told pt that a conversation with his spouse would need to take place to change his code status as he seems to be forgetful and needs to be frequently redirected. He previously stated that she is his POA and that he is to be a full code.
[2020-10-31] MEDS: IPRATROPIUM BR 0.02% INH SOLN 0.5 MG/2.5 ML VIAL INHALATION ×3 (02:19→14:54)
[2020-10-31] MEDS: ALBUTEROL SULFATE NEB 2.5 MG/0.5 ML INH 5 MG INHALATION ×3 (02:19→14:54)
[2020-10-31 05:00] LABS: Hematocrit 22.3 % (42.0-52.0); Mean Corpuscular HGB Conc 30.5 g/dl (32-36); Mean Corpuscular Hemoglobin 30.8 pg (26-34); Mean Corpuscular Volume 100.9 fl (80-100); Mean Platelet Volume 10.5 fl (7.4-10.4); Platelet Count Result 366 k/mm3 (150-375); Red Blood Count 2.21 M/mm3 (4.6-6.20); White Blood Count 11.3 K/mm3 (4.5-10.0)
[2020-10-31 05:15] LABS: INR 3.6; Lactic Acid Reflex 0.9 mmol/L (0.7-2.1); Prothrombin Time 36.4 Seconds (11.1-14.7)
[2020-10-31] MEDS: methylPREDNISolone SOD SUCC 125 MG VIAL 80 MG IV PUSH ×2 (05:19→13:01)
[2020-10-31 05:21] LABS: Alanine Aminotransferase 18 U/L (4-50); Albumin Level 3.2 g/dL (3.5-5.1); Alkaline Phosphatase 99 U/L (38-126); Aspartate Amino Transferase 47 U/L (17-59); Bilirubin,Total 0.3 mg/dL (0.2-1.3); Blood Urea Nitrogen 24 mg/dL (9-20); Carbon Dioxide > 40 mmol/L (22-30); Chloride 87 mmol/L (98-107); Estimated CRCL calculation 67 ml/min; Estimated Glomerular Filt Rate > 60; Glucose 147 mg/dL (75-110); Magnesium 2.1 mg/dL (1.6-2.3); Potassium 4.8 mmol/L (3.4-5.0); Sodium 139 mmol/L (137-145)
[2020-10-31 05:31] LABS: Hemoglobin 6.8 g/dL (14.0-18.0)
[2020-10-31 05:35] LABS: Hypochromasia 1+ (NORMAL); Large Platelets Present; Lymphocytes Absolute Manual 0.56 K/mm3 (1.1-4.5); Neutrophils Percent Manual 95 % (46-73); Nucleated Red Blood Cells 3 %; Platelet Estimate Adequate (Adequate); Total Cells Counted 100
[2020-10-31 05:36] LABS: Macrocytosis 1+ (NORMAL); Ovalocytes 1+ (NORMAL)
[2020-10-31 05:38] LABS: Lactate Dehydrogenase 554 U/L (313-618)
[2020-10-31] MEDS: MONTELUKAST SODIUM 10 MG TABLET PO (09:03)
[2020-10-31] MEDS: THIAMINE HCL 100 MG TABLET PO (09:03)
[2020-10-31] MEDS: PANTOPRAZOLE 40 MG TABLET PO (09:03)
[2020-10-31] MEDS: FOLIC ACID 1 MG TABLET PO (09:03)
[2020-10-31] MEDS: MULTIVITAMINS /C LUTEIN (CENTRUM SILVER) TABLET *BKC 1 TAB PO (09:03)
[2020-10-31] MEDS: BUDESONIDE RESPULE NEB 0.5 MG/2 ML AMP INHALATION (09:03)
[2020-10-31] MEDS: MAGNESIUM OXIDE 400 MG TABLET 800 MG PO (09:03)
[2020-10-31] MEDS: ASCORBIC ACID 500 MG TABLET 1000 MG PO (09:04)
[2020-10-31] MEDS: DIGOXIN TAB 125 MCG TABLET PO (09:04)
[2020-10-31] MEDS: CHOLECALCIFEROL 1,000 UNITS TABLET 2000 UNITS PO (09:04)
[2020-10-31] MEDS: ESCITALOPRAM OXALATE 10 MG TABLET PO (09:04)
[2020-10-31] MEDS: FAMOTIDINE 20 MG/2 ML VIAL IV PUSH ×2 (09:04→20:57)
[2020-10-31] MEDS: FUROSEMIDE 40 MG TABLET PO (09:05)
[2020-10-31] MEDS: LACTATED RINGERS 1,000 ML 75 ML IV CONT (09:20)
--- NOTE | 2020-10-31 10:03 | PM.IMPN ---
Progress Note: A&P Assessment and Plan (1) Acute and chronic respiratory failure with hypercapnia: Code(s): J96.22 - Acute and chronic respiratory failure with hypercapnia Status: Acute Assessment and Plan: Will continue to monitor oxygen and provide BiPAP support. Pulmonary consult. (2) Pulmonary embolism: Code(s): I26.99 - Other pulmonary embolism without acute cor pulmonale Status: Acute Assessment and Plan: INR is optimal today with continue with Coumadin. (3) Community acquired pneumonia: Code(s): J18.9 - Pneumonia, unspecified organism Status: Acute Assessment and Plan: Continue IV antibiotics monitor chest x-ray. Pulmonary consult order. (4) Person under investigation for severe acute respiratory syndrome coronavirus 2 (SARS-CoV-2) infection: Code(s): Z20.822 - Contact with and (suspected) exposure to COVID-19 Status: Acute Assessment and Plan: Cortisol test pending. Continue isolation. (5) Major depressive disorder, recurrent, mild: Code(s): F33.0 - Major depressive disorder, recurrent, mild Status: Acute Assessment and Plan: Stable on medications (6) Essential (primary) hypertension: Code(s): I10 - Essential (primary) hypertension Status: Acute Assessment and Plan: Stable medication. (7) Anemia: Qualifiers: Anemia type: unspecified type Qualified Code(s): D64.9 - Anemia, unspecified Code(s): D64.9 - Anemia, unspecified Status: Chronic Assessment and Plan: Hemoglobin is low will transfuse. Monitor hemoglobin closely Subjective Date/time seen: 10/31/20 10:03 Interval history: Patient was seen during the morning rounds today. Has mild shortness of breath. No chest pain. Review of Systems Review of Systems: All systems reviewed & are unremarkable except as noted in HPI and below Constitutional: Constitutional: Reports as per HPI Eyes: Eyes: Reports as per HPI ENT: Reports system reviewed and no additional complaints, except as documented Cardiovascular: Cardiovascular: Reports as per HPI Respiratory: Respiratory: Reports as per HPI Gastrointestinal: Gastrointestinal: Reports as per HPI Musculoskeletal: Musculoskeletal: Reports no additional musculoskeletal complaints Neurologic: Reports system reviewed and no additional complaints, except as documented and Reports as per HPI Psychiatric: Psychiatric: Reports no additional psychiatric complaints and Reports as per HPI Endocrine: Endocrine: Reports as per HPI Exam Const: General: cooperative and no acute distress Orientation/consciousness: oriented to person, oriented to place, oriented to time and patient oriented x3 HENMT: Head: normal to inspection Ears: hearing grossly normal bilaterally and external ears normal General nose exam: Normal external nose present Face and sinus: normal facial exam Mouth: Yes Normal oral and palatal mucosa present Eyes: General: appearance normal, both eyes and all related structures Neck: Neck: normal visual inspection and full ROM Chest: Chest palpation & inspection: normal inspection of the chest and normal palpation of entire chest wall Resp: Effort & Inspection: normal respiratory effort Auscultation: clear to auscultation bilaterally Cardio: Jugular venous distension: no JVD Palpation: normal PMI Rate: regular rate Heart sounds: S1 normal heart sound present and S2 normal heart sound present GI: Inspection: normal to inspection GI Palp: No abdominal tenderness Neuro: General: oriented to person, oriented to place, oriented to time and patient oriented x3 Cranial nerves: Yes CN's II-XII intact bilaterally Speech: normal speech Gait exam (Neuro): Normal gait present Motor exam (neuro): 5/5 motor strength present throughout Sensory Exam: normal sensation Psych: Appearance: grossly normal Objective Data Vital Signs Vital Signs: Vital Sign
--- NOTE | 2020-10-31 11:10 | PC.NURSE ---
Received Order from Dr Art to discontinue Warfarin due to high INR, Hydrocortisone because patient is receiving solumedrol and Home broncho dilator because he is receiving sufficient broncho dilators by respiratory.
--- NOTE | 2020-10-31 13:23 | PM.CNPUL ---
Assessment and Plan Assessment and plan (1) Pulmonary embolism: Code(s): I26.99 - Other pulmonary embolism without acute cor pulmonale Status: Acute Assessment and Plan: Patient has a history of an acute PE in September of 2020. This occurred while he was on right peroxide band. Given his history of lung cancer we spoke with Oncology and at that time it was 50 believed in his best interest to be on warfarin. Patient came in with an INR of 2.8 and today it is 3.6. Warfarin will be held. Given the acute illness once his INR is less than to favor placing him on an IV heparin drip. (2) Acute respiratory failure with hypoxia and hypercarbia: Code(s): J96.01 - Acute respiratory failure with hypoxia; J96.02 - Acute respiratory failure with hypercapnia Status: Acute Assessment and Plan: On 10/04 I had the patient on a home noninvasive ventilation with a AVAPS rate of 14, tidal volume 500, EPAP 5, inspiratory pressure min 6 inspiratory pressure max 25 35% with an ABG of 7.43/65/55 at the end of the night. Patient did have a noninvasive ventilator with AVAPS mode delivered to his home but he has not been able to tolerate that machine. In the hospital currently patient is refusing to wear BiPAP. Currently patient is on high-flow nasal cannula 50 L a minute and 57% and his oxygen saturations are 98 %. We will wean his FiO2 and nasal flow to achieve a saturation of 90-94. I called his POA, Simmering his and, telephone [phone] and discussed patient's condition. At this point the patient is a full code including intubation but she will talk to her son and daughter regarding the severity of his illness. (3) COPD with acute exacerbation: Onset Date: Unknown Code(s): J44.1 - Chronic obstructive pulmonary disease with (acute) exacerbation Status: Acute Assessment and Plan: Patient with severe Elvia COPD with bilateral panlobular emphysema on 6-8 L oxygen at home 247. Patient does not tolerate noninvasive ventilation. Patient has currently no active wheezing on albuterol and ipratropium nebulizers Q 6 hours. Patient is also on methylprednisone 80 mg IV q.6 hours. (4) PNA (pneumonia): Code(s): J18.9 - Pneumonia, unspecified organism Status: Acute Assessment and Plan: Patient has hypoxemic respiratory failure with diffuse interstitial alveolar infiltrates on his chest x-ray. SARS- COVID to test is pending at this time. Blood cultures are negative at this time. Will send the influenza swab. Etiology includes bacterial infection, viral infection, and immune check point inhibitor interstitial lung disease from his Pembrolizumab. Patient was recently in the hospital and I will change his ceftriaxone and azithromycin to vancomycin, Zosyn and Levaquin for the possibility of a hospital-acquired pneumonia. I will send influenza swab. SARS-CoV-2 pending. 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 Will follow with you. History of Present Illness History of Present Illness Consult date: 10/31/20 Requesting physician: Kevyn Concepcion MD Reason for consult: COPD and pneumonia Chief complaint: respiratory failure w/hypercarbia&hypoxemia pneumo Narrative: This is a new pulmonary consult for COPD, pneumonia and hypercarbic and hypoxemic respiratory failure. Patient is a 75-year-old man with a history of COPD and chronic respiratory failure on 68 lead 6-8 L nasal cannula at home, severe panlobular emphysema on a CT scan of the chest, bilateral lung cancer diagnosed in 2 status post radiation and currently receiving chemotherapy per Dr. Chris COLON at [facility]. Patient has a history of atrial fibrillation and was on ripe peroxide band. In September 2020 he developed a pulmonary embolism that was treated with heparin initially and then changed to warfarin. At that time I consulted on the patient and for his hypercarbic re
--- NOTE | 2020-10-31 13:31 | PCNSR ---
On 10/31/20, the student,Katie Can, provided care and completed [facility] documentation on this patient. I have reviewed the student's documentation and agree with the findings.
--- NOTE | 2020-10-31 14:16 | PC.NURSE ---
Received telephone order from Dr. Pierson to access right chest port to administer blood. Called IV Access nurse Mavis Santos to access right chest port.
[2020-10-31] MEDS: SODIUM CHLORIDE 0.9% IV 250 ML 30 ML IV CONT (15:30)
[2020-10-31] MEDS: TUBING, BLOOD PLUM PUMP TUBING 1 EACH XX (15:31)
[2020-10-31 18:19] LABS: SARS-CoV-2 RNA PCR Negative
[2020-10-31] MEDS: methylPREDNISolone SOD SUCC 125 MG VIAL 60 MG IV PUSH ×2 (19:01→23:47)
[2020-10-31 20:45] LABS: Hematocrit 26.7 % (42.0-52.0); Hemoglobin 8.1 g/dL (14.0-18.0)
[2020-10-31] MEDS: CENTRAL LINE FLUSH 10 ML IV PUSH (20:58)
[2020-11-01] VITALS (35 sets, daily range): BP systolic 90–109; BP diastolic 55–73; PULSE 67–99; RESP 16–22; TEMP 36–36.7; O2SAT 86–100
[2020-11-01] MEDS: methylPREDNISolone SOD SUCC 125 MG VIAL 60 MG IV PUSH ×2 (05:16→11:52)
[2020-11-01] MEDS: CENTRAL LINE FLUSH 10 ML IV PUSH ×3 (05:46→20:25)
[2020-11-01 05:51] LABS: Hematocrit 24.6 % (42.0-52.0); Hemoglobin 7.5 g/dL (14.0-18.0); Mean Corpuscular HGB Conc 30.5 g/dl (32-36); Mean Corpuscular Hemoglobin 29.9 pg (26-34); Mean Platelet Volume 10.9 fl (7.4-10.4); Platelet Count Result 354 k/mm3 (150-375); Red Blood Count 2.51 M/mm3 (4.6-6.20); Red Cell Distribution Width 19.6 % (11.5-14.5)
[2020-11-01 06:00] LABS: INR 4.3; Prothrombin Time 41.8 Seconds (11.1-14.7)
[2020-11-01 06:10] LABS: Potassium 4.1 mmol/L (3.4-5.0)
[2020-11-01 06:35] LABS: Alanine Aminotransferase 16 U/L (4-50); Albumin Level 3.1 g/dL (3.5-5.1); Alkaline Phosphatase 83 U/L (38-126); Aspartate Amino Transferase 40 U/L (17-59); Bilirubin,Total 0.3 mg/dL (0.2-1.3); Blood Urea Nitrogen 29 mg/dL (9-20); Calcium 8.9 mg/dL (8.4-10.2); Carbon Dioxide > 40 mmol/L (22-30); Chloride 85 mmol/L (98-107); Estimated CRCL calculation 69 ml/min; Estimated Glomerular Filt Rate > 60; Glucose 149 mg/dL (75-110); Sodium 136 mmol/L (137-145)
[2020-11-01] MEDS: BUDESONIDE RESPULE NEB 0.5 MG/2 ML AMP INHALATION (08:00)
[2020-11-01] MEDS: ALBUTEROL SULFATE NEB 2.5 MG/0.5 ML INH 5 MG INHALATION ×2 (08:00→13:54)
[2020-11-01] MEDS: IPRATROPIUM BR 0.02% INH SOLN 0.5 MG/2.5 ML VIAL INHALATION ×3 (08:00→20:19)
--- NOTE | 2020-11-01 08:28 | PM.IMPN ---
Progress Note: A&P Assessment and Plan (1) Acute and chronic respiratory failure with hypercapnia: Code(s): J96.22 - Acute and chronic respiratory failure with hypercapnia Status: Acute Assessment and Plan: Will continue to monitor oxygen and provide BiPAP support. Pulmonary consult noted. (2) Pulmonary embolism: Code(s): I26.99 - Other pulmonary embolism without acute cor pulmonale Status: Acute Assessment and Plan: INR is quite high today. Will recheck Coumadin and monitor closely. (3) Community acquired pneumonia: Code(s): J18.9 - Pneumonia, unspecified organism Status: Acute Assessment and Plan: Continue IV antibiotics monitor chest x-ray. Pulmonary consult noted. (4) Person under investigation for severe acute respiratory syndrome coronavirus 2 (SARS-CoV-2) infection: Code(s): Z20.822 - Contact with and (suspected) exposure to COVID-19 Status: Acute Assessment and Plan: Cortisol test pending. Continue isolation. (5) Major depressive disorder, recurrent, mild: Code(s): F33.0 - Major depressive disorder, recurrent, mild Status: Acute Assessment and Plan: Stable on medications (6) Essential (primary) hypertension: Code(s): I10 - Essential (primary) hypertension Status: Acute Assessment and Plan: Stable medication. (7) Anemia: Qualifiers: Anemia type: unspecified type Qualified Code(s): D64.9 - Anemia, unspecified Code(s): D64.9 - Anemia, unspecified Status: Chronic Assessment and Plan: Patient received blood transfusion today. Hemoglobin is 7.5 today. Will transfuse 1 more unit. Subjective Date/time seen: 11/01/20 08:28 Interval history: Patient was seen during the morning rounds today. Patient is more alert today. Has mild shortness of breath. No chest pain. Mood stable. Review of Systems Review of Systems: All systems reviewed & are unremarkable except as noted in HPI and below Constitutional: Constitutional: Reports as per HPI and Reports no additional constitutional complaints Eyes: Eyes: Reports as per HPI and Reports no additional eye complaints ENT: Reports system reviewed and no additional complaints, except as documented and Reports Normal hearing present Cardiovascular: Cardiovascular: Reports as per HPI and Reports no additional cardiovascular complaints Respiratory: Respiratory: Reports as per HPI, Reports no additional respiratory complaints and Reports no additional respiratory complaints Gastrointestinal: Gastrointestinal: Reports as per HPI and Reports no additional gastrointestinal complaints Musculoskeletal: Musculoskeletal: Reports no additional musculoskeletal complaints Integumentary/Breasts: Skin/Breast: Reports system reviewed and no additional complaints, except as docu and Reports as per HPI Neurologic: Reports system reviewed and no additional complaints, except as documented, Reports as per HPI and Reports Normal hearing present Psychiatric: Psychiatric: Reports no additional psychiatric complaints and Reports as per HPI Endocrine: Endocrine: Reports no additional endocrine complaints and Reports as per HPI Hematologic/Lymphatic: Hematologic/Lymphatic: Reports no additional hematologic/lymphatic complaints Allergic/Immunologic: Allergic/Immunologic: Reports no additional allergic/immunologic complaints Exam Const: General: cooperative, no acute distress, alert, awake, Physically active and ill appearing Nutritional Appearance: thin Orientation/consciousness: oriented to person, oriented to place, oriented to time and patient oriented x3 Limitations: altered mental status (Patient had pulled his oxygen off and became confused) HENMT: Head: normal to inspection, No palpable skull fracture present, normocephalic and atraumatic Ears: hearing grossly normal bilaterally and external ears normal General nose exam: Normal external n
[2020-11-01 09:12] LABS: Alveolar/Arterial O2 Gradient 177.6 mmHg; Base Excess ABG 22.8 mEq/l (+/-2.0); Fractional Inspired Oxygen 42 %; HCO3 ABG 49.5 mEq/l (22.0-26.0); Oxyhemoglobin 77.7 % THb (90.0-100.0); Total Hemoglobin 9.1 g/dL (12.0-18.0); pH ABG 7.469 (7.350-7.450)
[2020-11-01] MEDS: CHOLECALCIFEROL 1,000 UNITS TABLET 2000 UNITS PO (09:12)
[2020-11-01] MEDS: ASCORBIC ACID 500 MG TABLET 1000 MG PO (09:13)
[2020-11-01 09:16] LABS: PCO2 ABG 69.8 mmHg (35.0-45.0); PO2 ABG 41.9 mmHg (80.0-100.0)
[2020-11-01 09:17] LABS: Device HIGH FLOW NASAL CANN; Modified Allen's Test Pass; Site Drawn RIGHT BRACHIAL
[2020-11-01] MEDS: DIGOXIN TAB 125 MCG TABLET PO (09:17)
[2020-11-01] MEDS: ESCITALOPRAM OXALATE 10 MG TABLET PO (09:17)
[2020-11-01] MEDS: FOLIC ACID 1 MG TABLET PO (09:18)
[2020-11-01] MEDS: MONTELUKAST SODIUM 10 MG TABLET PO (09:19)
[2020-11-01] MEDS: MULTIVITAMINS /C LUTEIN (CENTRUM SILVER) TABLET *BKC 1 TAB PO (09:19)
[2020-11-01] MEDS: THIAMINE HCL 100 MG TABLET PO (09:19)
[2020-11-01] MEDS: MAGNESIUM OXIDE 400 MG TABLET 800 MG PO (09:19)
[2020-11-01] MEDS: METOPROLOL TARTRATE 25 MG TABLET PO ×2 (09:20→20:20)
[2020-11-01] MEDS: FUROSEMIDE 40 MG TABLET PO (09:20)
[2020-11-01] MEDS: PANTOPRAZOLE 40 MG TABLET PO (09:22)
--- NOTE | 2020-11-01 15:23 | PM.PNPUL ---
Progress Note: A&P Assessment and Plan (1) Community acquired pneumonia: Code(s): J18.9 - Pneumonia, unspecified organism Status: Acute Assessment and Plan: This patient appears to have pneumonia with high risk features given his immune compromise station, metastatic lung cancer and overall weakness and debilitation and multiple comorbidities. I agree with broad-spectrum antibiotics. He seems to be responding with decrease in WBCs. continue current antibiotics for a total of 7 days. We will get PT OT involved to get him up and moving around at least up into the chair twice a day. (2) Acute and chronic respiratory failure with hypercapnia: Code(s): J96.22 - Acute and chronic respiratory failure with hypercapnia Status: Acute Assessment and Plan: Acute exacerbation likely due to acute pneumonia. The patient does not tolerate BiPAP or other forms of NIV. According to his he does not even tolerate his home trilogy NIV via nasal pillows. I will switch him back to high flow and get daily ABGs With goal O2 saturations of 88-92%. (3) Pulmonary embolism: Code(s): I26.99 - Other pulmonary embolism without acute cor pulmonale Status: Acute (4) COPD with acute exacerbation: Onset Date: Unknown Code(s): J44.1 - Chronic obstructive pulmonary disease with (acute) exacerbation Status: Acute Assessment and Plan: -Decrease Solu-Medrol to 40 mg IV q.12 hours - increase Pulmicort to 1 mg nebulized q.12 hours - decrease albuterol to 2.5 mg q.6 hours scheduled - continue ipratropium 0.5 mg Q 6 hours scheduled. - PT/OT will get involved to help him mobilize. Subjective Date/time seen: 11/01/20 15:23 Interval history: 75-year-old male with multiple medical problems including metastatic lung cancer who is currently on chemotherapy, severe COPD on home O2, chronic hypercapnic respiratory failure, nicotine dependence and many other medical comorbidities. He was admitted with acute on chronic hypercapnic respiratory failure and CT chest shows bilateral emphysema with some subpleural fibrotic changes but also shows a right lower lobe infiltrate which appears to be acute pneumonia. SARS-CoV-2 PCR was negative. White count was 19, 000 on admission and is now come down to 11,000 with broad-spectrum antibiotics. Review of Systems Review of Systems: All systems reviewed & are unremarkable except as noted in HPI and below Exam Const: General: cooperative, healthy appearing and in distress Orientation/consciousness: oriented to person, oriented to place and oriented to time HENMT: Head: normal to inspection Ears: hearing grossly normal bilaterally Mouth: Yes Normal oral and palatal mucosa present Throat: tonsils absent Eyes: General: appearance normal, both eyes and all related structures Neck: Neck: normal visual inspection and no JVD Chest: Chest palpation & inspection: normal inspection of the chest Resp: Auscultation: crackles, no rales, no rhonchi, no wheezes and diminished lung sounds Cardio: Jugular venous distension: no JVD Rhythm: abnormal rhythm GI: Inspection: normal to inspection GI Palp: Yes Soft to palpation Skin: General skin exam: normal color Neuro: General: oriented to person, oriented to place and oriented to time Other: States his name, Does not know the name of the current hospital, stated it was 2023, stated Scarlet is the global president. He followed simple commands with all 4 extremities. Extrem: General: normal to inspection and no edema Psych: Appearance: grossly normal Objective Data Vital Signs Vital Signs: Vital Signs - 24 hr 10/31/20 15:46 10/31/20 16:00 10/31/20 16:04 Temperature 36.9 C 36.9 C 36.8 C Pulse Rate 79 74 71 Respiratory Rate 20 18 22 H Blood Pressure 105/64 105/64 112/21 L Pulse Oximetry 100 98 100 10/31/20 17:00 10/31/20 18:00 10/31/20 20:00 Temperature 36.8 C 36.0 C L Puls
[2020-11-01 16:56] LABS: Influenza Control Positive
[2020-11-01] MEDS: ALBUTEROL SULFATE NEB 2.5 MG/0.5 ML INH INHALATION (20:19)
[2020-11-01] MEDS: BUDESONIDE RESPULE NEB 0.5 MG/2 ML AMP 1 MG INHALATION (20:20)
[2020-11-01] MEDS: methylPREDNISolone SOD SUCC 40 MG VIAL IV PUSH (20:22)
[2020-11-02] VITALS (33 sets, daily range): BP systolic 90–105; BP diastolic 46–57; PULSE 72–100; RESP 17–24; TEMP 35.7–36.4; O2SAT 88–100
[2020-11-02] MEDS: ALBUTEROL SULFATE NEB 2.5 MG/0.5 ML INH INHALATION ×4 (02:09→20:02)
[2020-11-02] MEDS: IPRATROPIUM BR 0.02% INH SOLN 0.5 MG/2.5 ML VIAL INHALATION ×4 (02:09→20:02)
[2020-11-02] MEDS: CENTRAL LINE FLUSH 10 ML IV PUSH ×2 (05:27→21:06)
[2020-11-02 05:56] LABS: INR 3.5; Prothrombin Time 35.6 Seconds (11.1-14.7)
[2020-11-02 08:12] LABS: Alveolar/Arterial O2 Gradient 173.3 mmHg; Base Excess ABG 25.4 mEq/l (+/-2.0); Carboxyhemoglobin 0.3 % THb (0-2.0); Fractional Inspired Oxygen 46 %; HCO3 ABG 54.8 mEq/l (22.0-26.0); Methemoglobin ABG 0.4 %THb (0-1.5); Oxygen Content ABG 12.5 %vol (16.0-22.0); Oxyhemoglobin 84.6 % THb (90.0-100.0); PO2 FiO2 Ratio Arterial Blood 1.08 %; Reduced Hemoglobin 14.7 %THb (0-5.0); Total Hemoglobin 10.5 g/dL (12.0-18.0); pH ABG 7.391 (7.350-7.450)
[2020-11-02 08:13] LABS: Oxygen Saturation ABG 81.7 % (95.0-100.0); PCO2 ABG 92.4 mmHg (35.0-45.0); PO2 ABG 49.8 mmHg (80.0-100.0); Site Drawn RIGHT BRACHIAL
[2020-11-02 08:14] LABS: Device HIGH FLOW THERAPY
[2020-11-02] MEDS: PANTOPRAZOLE 40 MG TABLET PO (08:16)
[2020-11-02] MEDS: THIAMINE HCL 100 MG TABLET PO (08:16)
[2020-11-02] MEDS: MONTELUKAST SODIUM 10 MG TABLET PO (08:16)
[2020-11-02] MEDS: ASCORBIC ACID 500 MG TABLET 1000 MG PO (08:17)
[2020-11-02] MEDS: DIGOXIN TAB 125 MCG TABLET PO (08:17)
[2020-11-02] MEDS: CHOLECALCIFEROL 1,000 UNITS TABLET 2000 UNITS PO (08:17)
[2020-11-02] MEDS: ESCITALOPRAM OXALATE 10 MG TABLET PO (08:17)
[2020-11-02] MEDS: MULTIVITAMINS /C LUTEIN (CENTRUM SILVER) TABLET *BKC 1 TAB PO (08:17)
[2020-11-02] MEDS: FOLIC ACID 1 MG TABLET PO (08:17)
[2020-11-02] MEDS: METOPROLOL TARTRATE 25 MG TABLET PO ×2 (08:17→21:04)
[2020-11-02] MEDS: methylPREDNISolone SOD SUCC 40 MG VIAL IV PUSH ×2 (08:21→21:06)
[2020-11-02] MEDS: BUDESONIDE RESPULE NEB 0.5 MG/2 ML AMP 1 MG INHALATION ×2 (08:30→20:01)
[2020-11-02 08:53] LABS: Hematocrit 31.6 % (42.0-52.0); Hemoglobin 10.2 g/dL (14.0-18.0); Mean Corpuscular HGB Conc 32.3 g/dl (32-36); Mean Corpuscular Hemoglobin 31.7 pg (26-34); Mean Corpuscular Volume 98.1 fl (80-100); Mean Platelet Volume 10.7 fl (7.4-10.4); Platelet Count Result 377 k/mm3 (150-375); Red Blood Count 3.22 M/mm3 (4.6-6.20); Red Cell Distribution Width 18.7 % (11.5-14.5)
[2020-11-02 09:03] LABS: Blood Urea Nitrogen 24 mg/dL (9-20); Calcium 9.3 mg/dL (8.4-10.2); Carbon Dioxide > 40 mmol/L (22-30); Chloride 84 mmol/L (98-107); Estimated CRCL calculation 54 ml/min; Estimated Glomerular Filt Rate > 60; Glucose 139 mg/dL (75-110); Potassium 3.8 mmol/L (3.4-5.0); Sodium 136 mmol/L (137-145)
[2020-11-02 09:11] LABS: Band Neutrophils Percent 20 % (0-6); Metamyelocytes Percent 6 %; Monocytes Absolute Manual 0.36 K/mm3 (0.1-0.90); Monocytes Percent Manual 3 % (3-9); Neutrophils Absolute Manual 9.72 K/mm3 (1.3-6.7); Neutrophils Percent Manual 61 % (46-73); Platelet Estimate Adequate (Adequate); Total Cells Counted 100
[2020-11-02 09:13] LABS: Hypochromasia 3+ (NORMAL)
[2020-11-02 09:14] LABS: Stomatocytes 2+ (NORMAL)
--- NOTE | 2020-11-02 10:39 | PM.IMPN ---
Progress Note: A&P Assessment and Plan (1) Acute and chronic respiratory failure with hypercapnia: Code(s): J96.22 - Acute and chronic respiratory failure with hypercapnia Status: Acute Assessment and Plan: Will continue to monitor oxygen and provide BiPAP support. Pulmonary consult. (2) Pulmonary embolism: Code(s): I26.99 - Other pulmonary embolism without acute cor pulmonale Status: Acute Assessment and Plan: INR is his is slightly high, will hold Coumadin today. (3) Community acquired pneumonia: Code(s): J18.9 - Pneumonia, unspecified organism Status: Acute Assessment and Plan: Continue IV antibiotics monitor chest x-ray. Pulmonary consult order. (4) Person under investigation for severe acute respiratory syndrome coronavirus 2 (SARS-CoV-2) infection: Code(s): Z20.822 - Contact with and (suspected) exposure to COVID-19 Status: Acute Assessment and Plan: Cortisol test pending. Continue isolation. (5) Major depressive disorder, recurrent, mild: Code(s): F33.0 - Major depressive disorder, recurrent, mild Status: Acute Assessment and Plan: Stable on medications (6) Essential (primary) hypertension: Code(s): I10 - Essential (primary) hypertension Status: Acute Assessment and Plan: Stable medication. (7) Anemia: Qualifiers: Anemia type: unspecified type Qualified Code(s): D64.9 - Anemia, unspecified Code(s): D64.9 - Anemia, unspecified Status: Chronic Assessment and Plan: Hemoglobin is low will transfuse. Monitor hemoglobin closely Subjective Date/time seen: 11/02/20 10:39 Interval history: Patient was seen during the morning rounds today. Patient is more alert today. Has mild shortness of breath. No chest pain. Mood stable. No new complaints. Review of Systems Review of Systems: All systems reviewed & are unremarkable except as noted in HPI and below Constitutional: Constitutional: Reports as per HPI and Reports no additional constitutional complaints Eyes: Eyes: Reports as per HPI and Reports no additional eye complaints ENT: Reports system reviewed and no additional complaints, except as documented and Reports Normal hearing present Cardiovascular: Cardiovascular: Reports as per HPI and Reports no additional cardiovascular complaints Respiratory: Respiratory: Reports as per HPI, Reports no additional respiratory complaints and Reports no additional respiratory complaints Gastrointestinal: Gastrointestinal: Reports as per HPI and Reports no additional gastrointestinal complaints Musculoskeletal: Musculoskeletal: Reports no additional musculoskeletal complaints Integumentary/Breasts: Skin/Breast: Reports system reviewed and no additional complaints, except as docu and Reports as per HPI Neurologic: Reports system reviewed and no additional complaints, except as documented, Reports as per HPI and Reports Normal hearing present Psychiatric: Psychiatric: Reports no additional psychiatric complaints and Reports as per HPI Endocrine: Endocrine: Reports no additional endocrine complaints and Reports as per HPI Hematologic/Lymphatic: Hematologic/Lymphatic: Reports no additional hematologic/lymphatic complaints Allergic/Immunologic: Allergic/Immunologic: Reports no additional allergic/immunologic complaints Exam Const: General: cooperative, no acute distress, alert, awake, Physically active and ill appearing Nutritional Appearance: thin Orientation/consciousness: oriented to person, oriented to place, oriented to time and patient oriented x3 Limitations: altered mental status (Patient had pulled his oxygen off and became confused) HENMT: Head: normal to inspection, No palpable skull fracture present, normocephalic and atraumatic Ears: hearing grossly normal bilaterally and external ears normal General nose exam: Normal external nose present, Normal nares present a
--- NOTE | 2020-11-02 11:33 | PM.PNPUL ---
Progress Note: A&P Assessment and Plan (1) Community acquired pneumonia: Code(s): J18.9 - Pneumonia, unspecified organism Status: Acute Assessment and Plan: This patient appears to have pneumonia with high risk features given his immune compromise station, metastatic lung cancer and overall weakness and debilitation and multiple comorbidities. I agree with broad-spectrum antibiotics. He seems to be responding with decrease in WBCs. continue current antibiotics for a total of 7 days. We will get PT OT involved to get him up and moving around at least up into the chair twice a day. (2) Acute and chronic respiratory failure with hypercapnia: Code(s): J96.22 - Acute and chronic respiratory failure with hypercapnia Status: Acute Assessment and Plan: Acute exacerbation likely due to acute pneumonia. The patient does not tolerate BiPAP or other forms of NIV. According to his he does not even tolerate his home trilogy NIV via nasal pillows. I will switch him back to high flow and get daily ABGs With goal O2 saturations of 88-92%. (3) Pulmonary embolism: Code(s): I26.99 - Other pulmonary embolism without acute cor pulmonale Status: Acute (4) COPD with acute exacerbation: Onset Date: Unknown Code(s): J44.1 - Chronic obstructive pulmonary disease with (acute) exacerbation Status: Acute Assessment and Plan: -Decrease Solu-Medrol to 40 mg IV q.12 hours - increase Pulmicort to 1 mg nebulized q.12 hours - decrease albuterol to 2.5 mg q.6 hours scheduled - continue ipratropium 0.5 mg Q 6 hours scheduled. - PT/OT will get involved to help him mobilize. (5) Coagulase negative Staphylococcus bacteremia: Code(s): R78.81 - Bacteremia; B95.7 - Other staphylococcus as the cause of diseases classified elsewhere Status: Acute Assessment and Plan: this is likely real and not a contamination since a groove and 2/2 bottles. Would recommend continuing vancomycin for 14 days from the last positive blood culture. Blood cultures were repeated today. His echocardiogram showed no signs of endocarditis and clinically is not suspected. Subjective Date/time seen: 11/02/20 11:33 Interval history: feels a little bit more sleepy today but he says he did not sleep much at night. He gets a bit confused at night and then improves. I do suspect he has some delirium from his illness. His pH this morning was normal and his pCO2 appear to be a baseline so this does not account for the confusion or sleepiness. Also the PaO2 was 41 but his O2 saturations are around 93% and this discrepancy is likely due to the blood gas being venous rather than arterial this morning. He appears to be doing well on high-flow oxygen alone and will continue doing that unless he shows acute hypercapnia with dropping pH levels on ABGs as the patient does not tolerate NIV very well. Review of Systems Review of Systems: All systems reviewed & are unremarkable except as noted in HPI and below Exam Const: General: cooperative, healthy appearing and in distress Orientation/consciousness: oriented to person, oriented to place and oriented to time HENMT: Head: normal to inspection Ears: hearing grossly normal bilaterally Mouth: Yes Normal oral and palatal mucosa present Throat: tonsils absent Eyes: General: appearance normal, both eyes and all related structures Neck: Neck: normal visual inspection and no JVD Chest: Chest palpation & inspection: normal inspection of the chest Resp: Auscultation: crackles, no rales, no rhonchi, no wheezes and diminished lung sounds Cardio: Jugular venous distension: no JVD Rhythm: abnormal rhythm GI: Inspection: normal to inspection GI Palp: Yes Soft to palpation Skin: General skin exam: normal color Neuro: General: oriented to person, oriented to place and oriented to time Other: States his name, Does not know the name of the current hos
[2020-11-02] MEDS: acetaZOLAMIDE TAB 250 MG TABLET 500 MG PO ×2 (12:57→17:47)
[2020-11-02 20:57] LABS: Vancomycin Trough 10.1 ug/mL (10.0-20.0)
[2020-11-03] VITALS (33 sets, daily range): BP systolic 98–118; BP diastolic 54–76; PULSE 30–94; RESP 12–28; TEMP 35.8–36.6; O2SAT 78–99
[2020-11-03] MEDS: IPRATROPIUM BR 0.02% INH SOLN 0.5 MG/2.5 ML VIAL INHALATION ×4 (02:11→20:25)
[2020-11-03] MEDS: ALBUTEROL SULFATE NEB 2.5 MG/0.5 ML INH INHALATION ×4 (02:11→20:25)
--- NOTE | 2020-11-03 03:29 | ECG_ITS ---
Measurements Intervals [place] Rate: 85 P: [place]: 0 QRS: 72 QRSD: 110 T: 83 QT: 334 QTc: 398 Interpretive Statements ATRIAL FIBRILLATION LOW QRS VOLTAGE IN LIMB LEADS CANNOT RULE OUT SEPTAL INFARCT, AGE INDETERMINATE BORDERLINE ST-T WAVE ABNORMALITY- ANTEROLATERAL LEADS BASELINE ARTIFACT- I, II, III, AVR, AVL, AVF, V1-V6 ABNORMAL ECG Electronically Signed On 11-05-2020 7:25:39 RN INTEGRATED by Gordon Jones D.O.
[2020-11-03 03:54] LABS: INR 2.7; Prothrombin Time 29.1 Seconds (11.1-14.7)
[2020-11-03 03:57] LABS: Estimated CRCL calculation 49 ml/min; Estimated Glomerular Filt Rate > 60; Magnesium 1.9 mg/dL (1.6-2.3)
[2020-11-03] MEDS: CENTRAL LINE FLUSH 10 ML IV PUSH ×3 (06:07→21:05)
[2020-11-03] MEDS: acetaZOLAMIDE TAB 250 MG TABLET 500 MG PO ×2 (08:24→16:33)
[2020-11-03] MEDS: PANTOPRAZOLE 40 MG TABLET PO (08:24)
[2020-11-03] MEDS: ESCITALOPRAM OXALATE 10 MG TABLET PO (08:25)
[2020-11-03] MEDS: ASCORBIC ACID 500 MG TABLET 1000 MG PO (08:25)
[2020-11-03] MEDS: THIAMINE HCL 100 MG TABLET PO (08:25)
[2020-11-03] MEDS: FOLIC ACID 1 MG TABLET PO (08:25)
[2020-11-03] MEDS: MULTIVITAMINS /C LUTEIN (CENTRUM SILVER) TABLET *BKC 1 TAB PO (08:25)
[2020-11-03] MEDS: MONTELUKAST SODIUM 10 MG TABLET PO (08:25)
[2020-11-03] MEDS: CHOLECALCIFEROL 1,000 UNITS TABLET 2000 UNITS PO (08:25)
[2020-11-03] MEDS: DIGOXIN TAB 125 MCG TABLET PO (08:26)
[2020-11-03] MEDS: METOPROLOL TARTRATE 25 MG TABLET PO ×2 (08:27→21:04)
[2020-11-03] MEDS: methylPREDNISolone SOD SUCC 40 MG VIAL IV PUSH ×2 (08:27→21:04)
[2020-11-03] MEDS: NICOTINE (*PBKC) 21 MG PATCH 1 PATCH TRANSDERM (08:28)
[2020-11-03 08:35] LABS: Base Excess ABG 17.7 mEq/l (+/-2.0); Carboxyhemoglobin 0.2 % THb (0-2.0); Fractional Inspired Oxygen 45 %; HCO3 ABG 46.2 mEq/l (22.0-26.0); Methemoglobin ABG 0.3 %THb (0-1.5); Oxygen Content ABG 14.3 %vol (16.0-22.0); Oxygen Saturation ABG 93.4 % (95.0-100.0); Oxyhemoglobin 93.5 % THb (90.0-100.0); PO2 ABG 72.9 mmHg (80.0-100.0); PO2 FiO2 Ratio Arterial Blood 1.62 %; Total Hemoglobin 10.8 g/dL (12.0-18.0); pH ABG 7.375 (7.350-7.450)
[2020-11-03 08:37] LABS: PCO2 ABG 80.8 mmHg (35.0-45.0); Site Drawn RIGHT RADIAL
[2020-11-03 08:38] LABS: Modified Allen's Test Pass
[2020-11-03 08:39] LABS: Device HIGH FLOW THERAPY
[2020-11-03] MEDS: BUDESONIDE RESPULE NEB 0.5 MG/2 ML AMP 1 MG INHALATION ×2 (08:45→20:25)
--- NOTE | 2020-11-03 09:36 | PCDIET ---
Nutrition Follow-Up Complete: Nutrition Diagnosis: Inadequate oral intake related to loss of appetite as evidenced by BMI of 18.0 and refusing breakfast. Nutrition Goal: Patient to meet estimated nutritional needs. Goal in progress. Spoke with patient via phone due to COVID-19 precautions. Patient reports appetite is close to normal. Average intake since 11/01/20 has been 64% of recorded meals on heart healthy diet. Patient reports taking Ensure Enlive which is being provided twice daily. Last recorded weight is 59.5 kg which is slightly increased from last review. Bowel Motility: Last documented BM on 10/31/20 x 1. Labs Reviewed: Hgb (10.2), Hct (31.6) Meds Noted: Diamox, Albuterol, Vitamin C, Pulmicort, Folic Acid, Lasix, Atrovent, Solu Medrol, Centrum, Protonix, Zosyn, Thiamine, Vitamin D, Levaquin, LR at 75mL/hr Additional Notes: No documented skin breakdown. Will continue to monitor with same goal. Nutrition Monitoring and Evaluation: Follow up in 5 days.
--- NOTE | 2020-11-03 11:17 | PM.IMPN ---
Progress Note: A&P Assessment and Plan (1) Acute and chronic respiratory failure with hypercapnia: Code(s): J96.22 - Acute and chronic respiratory failure with hypercapnia Status: Acute Assessment and Plan: Will continue to monitor oxygen and provide BiPAP support. Pulmonary consult. (2) Pulmonary embolism: Code(s): I26.99 - Other pulmonary embolism without acute cor pulmonale Status: Acute Assessment and Plan: INR is his is slightly high, will hold Coumadin today. (3) Community acquired pneumonia: Code(s): J18.9 - Pneumonia, unspecified organism Status: Acute Assessment and Plan: Continue IV antibiotics monitor chest x-ray. Pulmonary consult order. (4) Person under investigation for severe acute respiratory syndrome coronavirus 2 (SARS-CoV-2) infection: Code(s): Z20.822 - Contact with and (suspected) exposure to COVID-19 Status: Acute Assessment and Plan: Cortisol test pending. Continue isolation. (5) Major depressive disorder, recurrent, mild: Code(s): F33.0 - Major depressive disorder, recurrent, mild Status: Acute Assessment and Plan: Stable on medications (6) Essential (primary) hypertension: Code(s): I10 - Essential (primary) hypertension Status: Acute Assessment and Plan: Stable medication. (7) Anemia: Qualifiers: Anemia type: unspecified type Qualified Code(s): D64.9 - Anemia, unspecified Code(s): D64.9 - Anemia, unspecified Status: Chronic Assessment and Plan: Hemoglobin is low will transfuse. Monitor hemoglobin closely Additional Plan Will continue current plan of care and treatment. Waiting for a fci placement. Subjective Date/time seen: 11/03/20 11:17 Interval history: Patient was seen during the morning rounds today. Patient is more alert today. Has mild shortness of breath. No chest pain. Mood stable. No new complaints. Review of Systems Review of Systems: All systems reviewed & are unremarkable except as noted in HPI and below Constitutional: Constitutional: Reports as per HPI and Reports no additional constitutional complaints Eyes: Eyes: Reports as per HPI and Reports no additional eye complaints ENT: Reports system reviewed and no additional complaints, except as documented and Reports Normal hearing present Cardiovascular: Cardiovascular: Reports as per HPI and Reports no additional cardiovascular complaints Respiratory: Respiratory: Reports as per HPI, Reports no additional respiratory complaints and Reports no additional respiratory complaints Gastrointestinal: Gastrointestinal: Reports as per HPI and Reports no additional gastrointestinal complaints Musculoskeletal: Musculoskeletal: Reports no additional musculoskeletal complaints Integumentary/Breasts: Skin/Breast: Reports system reviewed and no additional complaints, except as docu and Reports as per HPI Neurologic: Reports system reviewed and no additional complaints, except as documented, Reports as per HPI and Reports Normal hearing present Psychiatric: Psychiatric: Reports no additional psychiatric complaints and Reports as per HPI Endocrine: Endocrine: Reports no additional endocrine complaints and Reports as per HPI Hematologic/Lymphatic: Hematologic/Lymphatic: Reports no additional hematologic/lymphatic complaints Allergic/Immunologic: Allergic/Immunologic: Reports no additional allergic/immunologic complaints Exam Const: General: cooperative, no acute distress, alert, awake, Physically active and ill appearing Nutritional Appearance: thin Orientation/consciousness: oriented to person, oriented to place, oriented to time and patient oriented x3 Limitations: altered mental status (Patient had pulled his oxygen off and became confused) HENMT: Head: normal to inspection, No palpable skull fracture present, normocephalic and atraumatic Ears: hearing grossly normal bi
--- NOTE | 2020-11-03 12:54 | PM.PNPUL ---
Progress Note: A&P Assessment and Plan (1) Community acquired pneumonia: Code(s): J18.9 - Pneumonia, unspecified organism Status: Acute Assessment and Plan: This patient appears to have pneumonia with high risk features given his immune compromise station, metastatic lung cancer and overall weakness and debilitation and multiple comorbidities. I agree with broad-spectrum antibiotics. He seems to be responding with decrease in WBCs. continue current antibiotics for a total of 7 days. We will get PT OT involved to get him up and moving around at least up into the chair twice a day. (2) Acute and chronic respiratory failure with hypercapnia: Code(s): J96.22 - Acute and chronic respiratory failure with hypercapnia Status: Acute Assessment and Plan: Acute exacerbation likely due to acute pneumonia. The patient does not tolerate BiPAP or other forms of NIV. According to his he does not even tolerate his home trilogy NIV via nasal pillows. I will switch him back to high flow and get daily ABGs With goal O2 saturations of 88-92%. (3) Pulmonary embolism: Code(s): I26.99 - Other pulmonary embolism without acute cor pulmonale Status: Acute (4) COPD with acute exacerbation: Onset Date: Unknown Code(s): J44.1 - Chronic obstructive pulmonary disease with (acute) exacerbation Status: Acute Assessment and Plan: -Decrease Solu-Medrol to 40 mg IV q.12 hours - increase Pulmicort to 1 mg nebulized q.12 hours - decrease albuterol to 2.5 mg q.6 hours scheduled - continue ipratropium 0.5 mg Q 6 hours scheduled. - PT/OT will get involved to help him mobilize. (5) Coagulase negative Staphylococcus bacteremia: Code(s): R78.81 - Bacteremia; B95.7 - Other staphylococcus as the cause of diseases classified elsewhere Status: Acute Assessment and Plan: this is likely real and not a contamination since a groove and 2/2 bottles. Would recommend continuing vancomycin for 14 days from the last positive blood culture. Blood cultures were repeated today. His echocardiogram showed no signs of endocarditis and clinically is not suspected. Subjective Date/time seen: 11/03/20 12:54 Interval history: He seems to be doing well. His ABGs are stable and his pCO2 is coming down and his pH is normalized. He is a bit more sleepy than normal but awakens on command. He is not on any narcotics or sedatives. O2 saturations continued to remain high at night time and I caution and recommend that his O2 sats be actively titrated for 88-92% Review of Systems Review of Systems: All systems reviewed & are unremarkable except as noted in HPI and below Exam Const: General: cooperative, healthy appearing and in distress Orientation/consciousness: oriented to person, oriented to place and oriented to time HENMT: Head: normal to inspection Ears: hearing grossly normal bilaterally Mouth: Yes Normal oral and palatal mucosa present Throat: tonsils absent Eyes: General: appearance normal, both eyes and all related structures Neck: Neck: normal visual inspection and no JVD Chest: Chest palpation & inspection: normal inspection of the chest Resp: Auscultation: crackles, no rales, no rhonchi, no wheezes and diminished lung sounds Cardio: Jugular venous distension: no JVD Rhythm: abnormal rhythm GI: Inspection: normal to inspection GI Palp: Yes Soft to palpation Skin: General skin exam: normal color Neuro: General: oriented to person, oriented to place and oriented to time Other: States his name, Does not know the name of the current hospital, stated it was 2023, 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 He followed simple commands with all 4 extremities. Extrem: General: normal to inspection and no edema Psych: Appearance: grossly normal Objective Data Vital Signs Vital Signs: Vital Signs - 24 hr 11/02/20 13:46 11/02/20 14:06 11/02/20
[2020-11-04] VITALS (28 sets, daily range): BP systolic 106–121; BP diastolic 51–74; PULSE 63–89; RESP 18–24; TEMP 36.3–36.8; O2SAT 91–99
[2020-11-04] MEDS: ALBUTEROL SULFATE NEB 2.5 MG/0.5 ML INH INHALATION ×4 (01:33→21:55)
[2020-11-04] MEDS: IPRATROPIUM BR 0.02% INH SOLN 0.5 MG/2.5 ML VIAL INHALATION ×4 (01:33→21:55)
[2020-11-04] MEDS: CENTRAL LINE FLUSH 10 ML IV PUSH ×3 (05:29→20:08)
[2020-11-04 05:46] LABS: Prothrombin Time 23.1 Seconds (11.1-14.7)
[2020-11-04] MEDS: BUDESONIDE RESPULE NEB 0.5 MG/2 ML AMP 1 MG INHALATION ×2 (08:08→21:55)
[2020-11-04] MEDS: acetaZOLAMIDE TAB 250 MG TABLET 500 MG PO ×2 (08:10→16:11)
[2020-11-04] MEDS: METOPROLOL TARTRATE 25 MG TABLET PO ×2 (08:10→20:07)
[2020-11-04] MEDS: MULTIVITAMINS /C LUTEIN (CENTRUM SILVER) TABLET *BKC 1 TAB PO (08:10)
[2020-11-04] MEDS: CHOLECALCIFEROL 1,000 UNITS TABLET 2000 UNITS PO (08:10)
[2020-11-04] MEDS: NICOTINE (*PBKC) 21 MG PATCH 1 PATCH TRANSDERM (08:10)
[2020-11-04] MEDS: methylPREDNISolone SOD SUCC 40 MG VIAL IV PUSH ×2 (08:10→20:07)
[2020-11-04] MEDS: THIAMINE HCL 100 MG TABLET PO (08:11)
[2020-11-04] MEDS: DIGOXIN TAB 125 MCG TABLET PO (08:11)
[2020-11-04] MEDS: MONTELUKAST SODIUM 10 MG TABLET PO (08:11)
[2020-11-04] MEDS: PANTOPRAZOLE 40 MG TABLET PO (08:11)
[2020-11-04] MEDS: ESCITALOPRAM OXALATE 10 MG TABLET PO (08:11)
[2020-11-04] MEDS: ASCORBIC ACID 500 MG TABLET 1000 MG PO (08:11)
[2020-11-04] MEDS: FOLIC ACID 1 MG TABLET PO (08:11)
[2020-11-04 08:19] LABS: Alveolar/Arterial O2 Gradient 183.7 mmHg; Base Excess ABG 12.5 mEq/l (+/-2.0); Carboxyhemoglobin 0.1 % THb (0-2.0); Fractional Inspired Oxygen 50 %; HCO3 ABG 41.3 mEq/l (22.0-26.0); Methemoglobin ABG 0.3 %THb (0-1.5); Oxygen Content ABG 14.5 %vol (16.0-22.0); Oxygen Saturation ABG 94.6 % (95.0-100.0); Oxyhemoglobin 94.6 % THb (90.0-100.0); PO2 ABG 81.7 mmHg (80.0-100.0); PO2 FiO2 Ratio Arterial Blood 1.63 %; Total Hemoglobin 10.8 g/dL (12.0-18.0); pH ABG 7.325 (7.350-7.450)
[2020-11-04 08:20] LABS: Device HIGH FLOW THERAPY; Modified Allen's Test Pass; Site Drawn RIGHT RADIAL
[2020-11-04 08:49] LABS: Vancomycin Trough 13.3 ug/mL (10.0-20.0)
--- NOTE | 2020-11-04 10:20 | PCOTNOTE ---
Patient refused treatment this session due to feeling extremely tiered. Per RN possibly going hospice.
--- NOTE | 2020-11-04 10:48 | PM.PNPUL ---
Progress Note: A&P Assessment and Plan (1) Community acquired pneumonia: Code(s): J18.9 - Pneumonia, unspecified organism Status: Acute Assessment and Plan: This patient appears to have pneumonia with high risk features given his immune compromise station, metastatic lung cancer and overall weakness and debilitation and multiple comorbidities. I agree with broad-spectrum antibiotics. He seems to be responding with decrease in WBCs. continue current antibiotics for a total of 7 days. We will get PT OT involved to get him up and moving around at least up into the chair twice a day. (2) Acute and chronic respiratory failure with hypercapnia: Code(s): J96.22 - Acute and chronic respiratory failure with hypercapnia Status: Acute Assessment and Plan: Acute exacerbation likely due to acute pneumonia. The patient does not tolerate BiPAP or other forms of NIV. According to his he does not even tolerate his home trilogy NIV via nasal pillows. - continue Weaning oxygen to maintain sats 88-92% strictly - can use BiPAP as needed 12/6 with a backup rate of 18 if develops acute respiratory distress. (3) Pulmonary embolism: Code(s): I26.99 - Other pulmonary embolism without acute cor pulmonale Status: Acute (4) COPD with acute exacerbation: Onset Date: Unknown Code(s): J44.1 - Chronic obstructive pulmonary disease with (acute) exacerbation Status: Acute Assessment and Plan: -Decrease Solu-Medrol to 40 mg IV q.12 hours - increase Pulmicort to 1 mg nebulized q.12 hours - decrease albuterol to 2.5 mg q.6 hours scheduled - continue ipratropium 0.5 mg Q 6 hours scheduled. - PT/OT will get involved to help him mobilize. (5) Coagulase negative Staphylococcus bacteremia: Code(s): R78.81 - Bacteremia; B95.7 - Other staphylococcus as the cause of diseases classified elsewhere Status: Acute Assessment and Plan: this is likely real and not a contamination since a groove and 2/2 bottles. Would recommend continuing vancomycin for 14 days from the last positive blood culture. Blood cultures were repeated today. His echocardiogram showed no signs of endocarditis and clinically is not suspected. Subjective Date/time seen: 11/04/20 10:48 Interval history: appears more alert awake and alert today. He says he is overall feeling a little better. His oxygenation was increased yesterday for a low reading of 78% x1. I am not sure what the circumstances were at the time and he is not sure either. But he is currently on high-flow 30 L and 45%. He was on BiPAP for a while. ABG this morning looks pretty close to baseline with a pH with that is slightly low at 7.32. Review of Systems Review of Systems: All systems reviewed & are unremarkable except as noted in HPI and below Exam Const: General: cooperative, healthy appearing and in distress Orientation/consciousness: oriented to person, oriented to place and oriented to time HENMT: Head: normal to inspection Ears: hearing grossly normal bilaterally Mouth: Yes Normal oral and palatal mucosa present Throat: tonsils absent Eyes: General: appearance normal, both eyes and all related structures Neck: Neck: normal visual inspection and no JVD Chest: Chest palpation & inspection: normal inspection of the chest Resp: Auscultation: crackles, no rales, no rhonchi, no wheezes and diminished lung sounds Cardio: Jugular venous distension: no JVD Rhythm: abnormal rhythm GI: Inspection: normal to inspection GI Palp: Yes Soft to palpation Skin: General skin exam: normal color Neuro: General: oriented to person, oriented to place and oriented to time Other: States his name, Does not know the name of the current hospital, stated it was 2023, 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 He followed simple commands with all 4 extremities. Extrem: General: normal to inspection and no edema Psych:
--- NOTE | 2020-11-04 12:32 | PM.IMPN ---
Progress Note: A&P Assessment and Plan (1) Sepsis: Code(s): A41.9 - Sepsis, unspecified organism Status: Acute Assessment and Plan: Present on admission with leukocytosis and tachycardia. Related to coag negative staph bacteremia. WBC up slightly today but could be relate to steroids. (2) Coagulase negative Staphylococcus bacteremia: Code(s): R78.81 - Bacteremia; B95.7 - Other staphylococcus as the cause of diseases classified elsewhere Status: Acute Assessment and Plan: BCx drawn 10/30 positive for Coag Negative Staph (2of2 bottles). Repat BCx negative. Suspect real and related to port. Follow up on the repeat BCx results. if treatment to be sought, then may need to remove port. (3) Acute and chronic respiratory failure with hypercapnia: Code(s): J96.22 - Acute and chronic respiratory failure with hypercapnia Status: Acute Assessment and Plan: Patient stil with high O2 requirements but improving. ABG noted from today. Will continue to monitor oxygen and provide BiPAP support. Pulmonary input appreciated. (4) Community acquired pneumonia: Code(s): J18.9 - Pneumonia, unspecified organism Status: Acute Assessment and Plan: CXR on admission showing extensive bilateral airspace disease with progression. Currently being treates with broad spectrum abx. (5) Pulmonary embolism: Code(s): I26.99 - Other pulmonary embolism without acute cor pulmonale Status: Acute Assessment and Plan: Hx of recent PE by CTA 10/01/20. INR better so resume Coumadin today. (6) Major depressive disorder, recurrent, mild: Code(s): F33.0 - Major depressive disorder, recurrent, mild Status: Acute Assessment and Plan: Mood stable. Contineu curent medications (7) Essential (primary) hypertension: Code(s): I10 - Essential (primary) hypertension Status: Acute Assessment and Plan: Patient's blood pressure was reviewed on 11/04 Blood pressure remains well controlled. Will continue current medications. (8) Anemia: Qualifiers: Anemia type: unspecified type Qualified Code(s): D64.9 - Anemia, unspecified Code(s): D64.9 - Anemia, unspecified Status: Chronic Assessment and Plan: Hemoglobin not checked today but 10.2 on 11/02. Check periodically. Hold for now since hospice being considered (9) Person under investigation for severe acute respiratory syndrome coronavirus 2 (SARS-CoV-2) infection: Code(s): Z20.822 - Contact with and (suspected) exposure to COVID-19 Status: Acute Assessment and Plan: COVID 10/31 negative. Subjective Date/time seen: 11/04/20 12:32 Interval history: Date of service 11/04 75yo male with lung CA, chronic respiratory failure on 6L, dCHF and PE here for acute respiratory failure from PNA. Assuming care. Chart reviewed. Patient is alert but confused and thus his hx is unreliable. Spoke with RN: family is speaking with hospice at this time. Son was in the room earlier but has stepped away. Review of Systems Review of Systems: ROS unobtainable: Yes unobtainable due to mental status Exam Narrative: Exam Narrative: AF 97.6 121/74 66 22 91%HFNC 60L at 50% Gen - NARD sitting up in chair Chest - decreased BS in the right base, left base inspiratory crackles o/w distatn BS; no wheezing CV - irregularly irregular;tele showing AFib with occasional 2sec pauses Abd - Soft, NT/ND, Positive BS Ext - trace pedal edema Neuro - Alert and cooperative. Pleasantly confused Skin - purlpish-red acrocyanosis bilateral LE Objective Data Vital Signs Vital Signs: Vital Signs - 24 hr 11/03/20 13:10 11/03/20 14:00 11/03/20 14:36 Temperature Pulse Rate 66 66 Respiratory Rate 20 Blood Pressure Pulse Oximetry 95 97 11/03/20 14:47 11/03/20 15:00 11/03/20 16:00 Temperature 96.8 F L Pulse Rate 92 7
--- NOTE | 2020-11-04 21:49 | PC.NURSE ---
Patient refused warfarin first dose at this time. Patient is suspicious and refuses to answer orientation questions. Reached out to hospitalist for update. Awaiting return call.
[2020-11-05] VITALS (23 sets, daily range): BP systolic 103–126; BP diastolic 51–69; PULSE 64–92; RESP 18–22; TEMP 35.9–36.5; O2SAT 89–100
[2020-11-05] MEDS: IPRATROPIUM BR 0.02% INH SOLN 0.5 MG/2.5 ML VIAL INHALATION ×4 (02:42→20:43)
[2020-11-05] MEDS: ALBUTEROL SULFATE NEB 2.5 MG/0.5 ML INH INHALATION ×4 (02:42→20:43)
[2020-11-05 03:50] LABS: INR 1.7; Prothrombin Time 20.5 Seconds (11.1-14.7)
[2020-11-05] MEDS: CENTRAL LINE FLUSH 10 ML IV PUSH ×3 (05:20→20:38)
[2020-11-05] MEDS: BUDESONIDE RESPULE NEB 0.5 MG/2 ML AMP 1 MG INHALATION ×2 (07:59→20:43)
[2020-11-05] MEDS: methylPREDNISolone SOD SUCC 40 MG VIAL IV PUSH ×2 (09:07→20:37)
[2020-11-05] MEDS: NICOTINE (*PBKC) 21 MG PATCH 1 PATCH TRANSDERM (09:08)
[2020-11-05] MEDS: ASCORBIC ACID 500 MG TABLET 1000 MG PO (09:36)
[2020-11-05] MEDS: THIAMINE HCL 100 MG TABLET PO (09:36)
[2020-11-05] MEDS: MULTIVITAMINS /C LUTEIN (CENTRUM SILVER) TABLET *BKC 1 TAB PO (09:36)
[2020-11-05] MEDS: acetaZOLAMIDE TAB 250 MG TABLET 500 MG PO ×2 (09:37→17:23)
[2020-11-05] MEDS: FOLIC ACID 1 MG TABLET PO (09:37)
[2020-11-05] MEDS: ESCITALOPRAM OXALATE 10 MG TABLET PO (09:37)
[2020-11-05] MEDS: PANTOPRAZOLE 40 MG TABLET PO (09:37)
[2020-11-05] MEDS: MONTELUKAST SODIUM 10 MG TABLET PO (09:37)
[2020-11-05] MEDS: CHOLECALCIFEROL 1,000 UNITS TABLET 2000 UNITS PO (09:37)
[2020-11-05] MEDS: METOPROLOL TARTRATE 25 MG TABLET PO ×2 (09:53→20:37)
--- NOTE | 2020-11-05 10:52 | PM.IMPN ---
Progress Note: A&P Assessment and Plan (1) Sepsis: Code(s): A41.9 - Sepsis, unspecified organism Status: Acute Assessment and Plan: Present on admission with leukocytosis and tachycardia. Related to coag negative staph bacteremia. Symptoms improved. (2) Coagulase negative Staphylococcus bacteremia: Code(s): R78.81 - Bacteremia; B95.7 - Other staphylococcus as the cause of diseases classified elsewhere Status: Acute Assessment and Plan: BCx drawn 10/30 positive for Coag Negative Staph (2of2 bottles). Repat BCx negative 11/02. Suspect real and possibly related to port. Spoke with to see if they want to continue treatment. If treatment to be sought, then may need to remove port. ID consult if family wants to continue care. (3) Acute and chronic respiratory failure with hypercapnia: Code(s): J96.22 - Acute and chronic respiratory failure with hypercapnia Status: Acute Assessment and Plan: Patient still with high O2 requirements but improving. ABG noted from yesterday. Will continue to monitor oxygen and provide BiPAP support. Pulmonary input appreciated. (4) Community acquired pneumonia: Code(s): J18.9 - Pneumonia, unspecified organism Status: Acute Assessment and Plan: CXR on admission showing extensive bilateral airspace disease with progression. Currently being treates with broad spectrum abx. (5) Pulmonary embolism: Code(s): I26.99 - Other pulmonary embolism without acute cor pulmonale Status: Acute Assessment and Plan: Hx of recent PE by CTA 10/01/20. INR elevated so Coumadin held; INR better yesterday so Coumadin resumed. INR 1.7 today. Follow with serial INRs. (6) Major depressive disorder, recurrent, mild: Code(s): F33.0 - Major depressive disorder, recurrent, mild Status: Acute Assessment and Plan: Mood stable. Contineu curent medications (7) Essential (primary) hypertension: Code(s): I10 - Essential (primary) hypertension Status: Acute Assessment and Plan: Patient's blood pressure was reviewed on 11/05 Blood pressure remains well controlled. Will continue current medications. (8) Anemia: Qualifiers: Anemia type: unspecified type Qualified Code(s): D64.9 - Anemia, unspecified Code(s): D64.9 - Anemia, unspecified Status: Chronic Assessment and Plan: Hemoglobin not checked today but 10.2 on 11/02. Check periodically. Hold for now since hospice being considered (9) Person under investigation for severe acute respiratory syndrome coronavirus 2 (SARS-CoV-2) infection: Code(s): Z20.822 - Contact with and (suspected) exposure to COVID-19 Status: Acute Assessment and Plan: COVID 10/31 negative. (10) Atrial fibrillation: Code(s): I48.91 - Unspecified atrial fibrillation Status: Acute Assessment and Plan: Patietn with chronic AFib. He was in RVR on admission (related to the sepsis) and given IV digoxin. He was continued on his metoprolol, digoxin and diltiazem that he takes at home. The patient is on Coumadin and and we are doing daily INRs. HR soft this morning possibly due to inactivity. Will stop Digoxin and continue Metoprolol. Hold Diltiazem and give later today if HR okay. Subjective Date/time seen: 11/05/20 10:52 Interval history: Date of service 11/05 75yo male with lung CA, chronic respiratory failure on 6L, dCHF and PE here for acute respiratory failure from PNA. Slept well. No CP or SOB. No nausea or vomiting but not eating well due to poor appetite. Family still deciding on hospice. Exam Narrative: Exam Narrative: AF 96.8 109/51 81 20 99% HFNC 10L Gen - NARD lyiing almost flat in bed Chest - clear anteriorly, few rhonchi in the flanks. nml RR CV - irregularly irregular; tele showing AFib with occasional pauses and bradycardia Abd - Sof
[2020-11-05] MEDS: WARFARIN (*PBKC) 4 MG TABLET PO (17:23)
[2020-11-06] VITALS (23 sets, daily range): BP systolic 117–145; BP diastolic 63–80; PULSE 58–98; RESP 14–24; TEMP 35.8–36.7; O2SAT 89–100
[2020-11-06] MEDS: IPRATROPIUM BR 0.02% INH SOLN 0.5 MG/2.5 ML VIAL INHALATION ×4 (02:52→21:28)
[2020-11-06] MEDS: ALBUTEROL SULFATE NEB 2.5 MG/0.5 ML INH INHALATION ×4 (02:52→21:28)
[2020-11-06] MEDS: CENTRAL LINE FLUSH 10 ML IV PUSH ×3 (05:37→21:49)
[2020-11-06 06:03] LABS: Estimated CRCL calculation 49 ml/min; Estimated Glomerular Filt Rate > 60
[2020-11-06 06:09] LABS: INR 1.8; Prothrombin Time 21.3 Seconds (11.1-14.7)
[2020-11-06 08:53] LABS: Vancomycin Trough 20.5 ug/mL (10.0-20.0)
[2020-11-06 09:00] LABS: Alanine Aminotransferase 49 U/L (4-50); Albumin Level 2.8 g/dL (3.5-5.1); Alkaline Phosphatase 72 U/L (38-126); Aspartate Amino Transferase 48 U/L (17-59); Bilirubin,Total 0.4 mg/dL (0.2-1.3); Blood Urea Nitrogen 30 mg/dL (9-20); Calcium 9.1 mg/dL (8.4-10.2); Carbon Dioxide > 40 mmol/L (22-30); Chloride 96 mmol/L (98-107); Estimated CRCL calculation 45 ml/min; Estimated Glomerular Filt Rate > 60; Glucose 136 mg/dL (75-110); Phosphorus 3.2 mg/dL (2.5-4.5); Potassium 3.2 mmol/L (3.4-5.0); Sodium 140 mmol/L (137-145)
[2020-11-06 09:21] LABS: Basophils Percent Auto 0.1 % (0.2-1.2); Hematocrit 33.8 % (42.0-52.0); Hemoglobin 10.2 g/dL (14.0-18.0); Immature Granulocyte Absolute 0.14 K/mm3 (0.00-0.031); Lymphocytes Percent Auto 1.4 % (18.3-44.2); Mean Corpuscular HGB Conc 30.2 g/dl (32-36); Mean Corpuscular Volume 99.4 fl (80-100); Mean Platelet Volume 10.5 fl (7.4-10.4); Monocytes Absolute Auto 0.8 K/mm3 (0.1-0.6); Monocytes Percent Auto 5.5 % (2.6-8.5); Neutrophils Absolute Auto 12.9 K/mm3 (1.3-6.7); Platelet Count Result 306 k/mm3 (150-375); Red Cell Distribution Width 18.7 % (11.5-14.5)
[2020-11-06] MEDS: BUDESONIDE RESPULE NEB 0.5 MG/2 ML AMP 1 MG INHALATION ×2 (09:38→21:28)
[2020-11-06] MEDS: ESCITALOPRAM OXALATE 10 MG TABLET PO (09:57)
[2020-11-06] MEDS: NICOTINE (*PBKC) 21 MG PATCH 1 PATCH TRANSDERM (09:57)
[2020-11-06] MEDS: MULTIVITAMINS /C LUTEIN (CENTRUM SILVER) TABLET *BKC 1 TAB PO (09:57)
[2020-11-06] MEDS: THIAMINE HCL 100 MG TABLET PO (09:57)
[2020-11-06] MEDS: ASCORBIC ACID 500 MG TABLET 1000 MG PO (09:57)
[2020-11-06] MEDS: CHOLECALCIFEROL 1,000 UNITS TABLET 2000 UNITS PO (09:57)
[2020-11-06] MEDS: FOLIC ACID 1 MG TABLET PO (09:57)
[2020-11-06] MEDS: METOPROLOL TARTRATE 25 MG TABLET PO ×2 (09:57→21:49)
[2020-11-06] MEDS: PANTOPRAZOLE 40 MG TABLET PO (09:57)
[2020-11-06] MEDS: MONTELUKAST SODIUM 10 MG TABLET PO (09:57)
[2020-11-06] MEDS: acetaZOLAMIDE TAB 250 MG TABLET 500 MG PO (09:57)
--- NOTE | 2020-11-06 11:02 | PM.PNPUL ---
Progress Note: A&P Assessment and Plan (1) Community acquired pneumonia: Code(s): J18.9 - Pneumonia, unspecified organism Status: Acute Assessment and Plan: This patient appears to have pneumonia with high risk features given his immune compromise station, metastatic lung cancer and overall weakness and debilitation and multiple comorbidities. I agree with broad-spectrum antibiotics. He seems to be responding with decrease in WBCs. continue current antibiotics for a total of 7 days. We will get PT OT involved to get him up and moving around at least up into the chair twice a day. (2) Acute and chronic respiratory failure with hypercapnia: Code(s): J96.22 - Acute and chronic respiratory failure with hypercapnia Status: Acute Assessment and Plan: Acute exacerbation likely due to acute pneumonia. The patient does not tolerate BiPAP or other forms of NIV. According to his he does not even tolerate his home trilogy NIV via nasal pillows. - continue Weaning oxygen to maintain sats 88-92% strictly - can use BiPAP as needed 12/6 with a backup rate of 18 if develops acute respiratory distress. (3) Pulmonary embolism: Code(s): I26.99 - Other pulmonary embolism without acute cor pulmonale Status: Acute (4) COPD with acute exacerbation: Onset Date: Unknown Code(s): J44.1 - Chronic obstructive pulmonary disease with (acute) exacerbation Status: Acute Assessment and Plan: - will discontinue solumedrol today - increase Pulmicort to 1 mg nebulized q.12 hours - decrease albuterol to 2.5 mg q.6 hours scheduled - continue ipratropium 0.5 mg Q 6 hours scheduled. - PT/OT will get involved to help him mobilize. (5) Coagulase negative Staphylococcus bacteremia: Code(s): R78.81 - Bacteremia; B95.7 - Other staphylococcus as the cause of diseases classified elsewhere Status: Acute Assessment and Plan: this is likely real and not a contamination since a groove and 2/2 bottles. Would recommend continuing vancomycin for 14 days from the last positive blood culture. Blood cultures were repeated today. His echocardiogram showed no signs of endocarditis and clinically is not suspected. (6) Metastatic lung carcinoma: Code(s): C78.00 - Secondary malignant neoplasm of unspecified lung Status: Acute Assessment and Plan: Should consider speaking with him regarding DNR code status given his poor state of health and metastatic lung CA. Subjective Date/time seen: 11/06/20 11:02 Interval history: He continues to improve daily but is still significantly weak. Review of Systems Review of Systems: All systems reviewed & are unremarkable except as noted in HPI and below Exam Const: General: cooperative, healthy appearing and in distress Orientation/consciousness: oriented to person, oriented to place and oriented to time HENMT: Head: normal to inspection Ears: hearing grossly normal bilaterally Mouth: Yes Normal oral and palatal mucosa present Throat: tonsils absent Eyes: General: appearance normal, both eyes and all related structures Neck: Neck: normal visual inspection and no JVD Chest: Chest palpation & inspection: normal inspection of the chest Resp: Auscultation: crackles, no rales, no rhonchi, no wheezes and diminished lung sounds Cardio: Jugular venous distension: no JVD Rhythm: abnormal rhythm GI: Inspection: normal to inspection GI Palp: Yes Soft to palpation Skin: General skin exam: normal color Neuro: General: oriented to person, oriented to place and oriented to time Other: States his name, Does not know the name of the current hospital, stated it was 2023, 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 He followed simple commands with all 4 extremities. Extrem: General: normal to inspection and no edema Psych: Appearance: grossly normal Objective Data Vital Signs Vital Signs: Vital Sign
--- NOTE | 2020-11-06 11:55 | PM.IMPN ---
Progress Note: A&P Assessment and Plan (1) Sepsis: Code(s): A41.9 - Sepsis, unspecified organism Status: Acute Assessment and Plan: Present on admission with leukocytosis and tachycardia. Related to coag negative staph bacteremia. Symptoms improved. (2) Coagulase negative Staphylococcus bacteremia: Code(s): R78.81 - Bacteremia; B95.7 - Other staphylococcus as the cause of diseases classified elsewhere Status: Acute Assessment and Plan: BCx drawn 10/30 positive for Coag Negative Staph (2of2 bottles). Repeat BCx negative 11/02. Suspect real and possibly related to port. ID consulted for input on whether this is true infection and if port needs to be removed. Echo not performed this admission but not felt necessary given that he is not persistently bacteremia but will discuss with ID. (3) Acute and chronic respiratory failure with hypercapnia: Code(s): J96.22 - Acute and chronic respiratory failure with hypercapnia Status: Acute Assessment and Plan: Patient had high O2 requirements but improved. Normally on 6L O2 at home. Has NIV at home but does not use according to the notes. Wearing BiPAP intermittently (last worn 11/03). Will continue to monitor. Pulmonary input appreciated. (4) Community acquired pneumonia: Code(s): J18.9 - Pneumonia, unspecified organism Status: Acute Assessment and Plan: CXR on admission showing extensive bilateral airspace disease with progression. Currently being treated with broad spectrum abx Day 7. O2 requirement better. WBC up to 14K possibly related to the steroids. No fevers. ID consulted for opinion of abx duration and choice. (5) COPD with acute exacerbation: Onset Date: Unknown Code(s): J44.1 - Chronic obstructive pulmonary disease with (acute) exacerbation Status: Acute Assessment and Plan: No wheezing appreciated. O2 requirement improved. Patient off Solu-Medrol now. Contineu Albuterol, Pulmicort, and atrovent. (6) Pulmonary embolism: Code(s): I26.99 - Other pulmonary embolism without acute cor pulmonale Status: Acute Assessment and Plan: Hx of recent PE by CTA 10/01/20. INR elevated so Coumadin held; INR better so Coumadin resumed. INR 1.8 today. Follow with serial INRs (7) Major depressive disorder, recurrent, mild: Code(s): F33.0 - Major depressive disorder, recurrent, mild Status: Acute Assessment and Plan: Mood stable. Contineu curent medications (8) Essential (primary) hypertension: Code(s): I10 - Essential (primary) hypertension Status: Acute Assessment and Plan: Patient's blood pressure was reviewed on 11/06 Blood pressure remains well controlled. Will continue current medications. (9) Anemia: Qualifiers: Anemia type: unspecified type Qualified Code(s): D64.9 - Anemia, unspecified Code(s): D64.9 - Anemia, unspecified Status: Chronic Assessment and Plan: Hemoglobin stable in the 10 range. Check periodically. Hold for now since hospice being considered (10) Person under investigation for severe acute respiratory syndrome coronavirus 2 (SARS-CoV-2) infection: Code(s): Z20.822 - Contact with and (suspected) exposure to COVID-19 Status: Acute Assessment and Plan: COVID 10/31 negative. (11) Atrial fibrillation: Code(s): I48.91 - Unspecified atrial fibrillation Status: Acute Assessment and Plan: Patient with chronic AFib. He was in RVR on admission (related to the sepsis) and given IV digoxin. He was continued on his metoprolol, digoxin and diltiazem that he takes at home. The patient is on Coumadin and and we are doing daily INRs. HR soft possibly due to inactivity so Digoxin stopped. Cardizem held. We have continued Metoprolol and HR remains well controlled. (12) Metastatic lung carcinoma:
[2020-11-06] MEDS: POTASSIUM CHLORIDE 20 MEQ TABLET PO (12:48)
--- NOTE | 2020-11-06 13:58 | WPDINFPN2 ---
Progress Note: A&P Assessment and Plan (1) Coagulase negative Staphylococcus bacteremia: Code(s): R78.81 - Bacteremia; B95.7 - Other staphylococcus as the cause of diseases classified elsewhere Status: Acute Assessment and Plan: 1. CNSS port infection (tip) with bacteremia 2. Lung cancer with immunocompromise, no neutropenia 3. Dyspnea, multifactorial, he has been appropriately treated for potential HCAP REC Vanc # 7 / 14 days. Further BCs in process, and repeat after Vanc is finished --> if microbiologic cure then port can stay. Subjective Date/time seen: 11/06/20 13:58 Objective Data Vital Signs Vital Signs: Vital Signs - 24 hr 11/05/20 14:00 11/05/20 16:00 11/05/20 18:00 Temperature 36.2 C L Pulse Rate 72 65 81 Respiratory Rate 20 Blood Pressure 126/69 Pulse Oximetry 89 L 11/05/20 20:00 11/05/20 20:37 11/05/20 20:44 Temperature 36.5 C Pulse Rate 92 74 79 Respiratory Rate 20 20 Blood Pressure 118/61 Pulse Oximetry 98 11/05/20 20:52 11/05/20 20:57 11/05/20 22:00 Temperature Pulse Rate 73 73 83 Respiratory Rate 20 20 Blood Pressure Pulse Oximetry 98 11/06/20 00:00 11/06/20 02:00 11/06/20 02:54 Temperature 36.5 C Pulse Rate 88 88 85 Respiratory Rate 20 20 Blood Pressure 122/75 Pulse Oximetry 97 95 11/06/20 04:00 11/06/20 06:00 11/06/20 08:00 Temperature 36.7 C 36.0 C L Pulse Rate 80 94 80 Respiratory Rate 20 14 Blood Pressure 142/80 H 119/63 Pulse Oximetry 97 100 11/06/20 09:38 11/06/20 09:42 11/06/20 09:57 Temperature Pulse Rate 96 85 Respiratory Rate 20 Blood Pressure Pulse Oximetry 95 11/06/20 10:00 11/06/20 12:00 Temperature 35.8 C L Pulse Rate 86 72 Respiratory Rate 18 Blood Pressure 117/66 Pulse Oximetry 96 Intake/Output Intake/Output: Intake & Output 11/03/20 11/04/20 11/05/20 11/06/20 23:59 23:59 23:59 23:59 Intake Total 1840 1740 920 370 Output Total 600 625 750 400 Balance 1240 1115 170 -30 Meds/Results Medications: Active Medications Generic Name Dose Route Start Last Admin Trade Name Freq PRN Reason Stop Dose Admin Albuterol 2.5 mg 11/01/20 20:00 11/06/20 09:37 Albuterol Sulfate Neb 2.5 Mg/0.5 Ml Inh INHALATION 2.5 mg Q6HRT DOT Administration Ascorbic Acid 1,000 mg 10/31/20 09:00 11/06/20 09:57 Ascorbic Acid 500 Mg Tablet PO 1,000 mg DAILY DOT Administration Budesonide 1 mg 11/01/20 20:00 11/06/20 09:38 Budesonide Respule Neb 0.5 Mg/2 Ml Amp INHALATION 1 mg Q12HRT DOT Administration Diltiazem HCl 120 mg 10/31/20 00:35 11/05/20 09:49 Diltiazem Hcl 12 Hr 60 Mg Cap.Er.12h PO Not Given Q12HR [facility] Diphenoxylate HCl/Atropine 1 tablet 10/30/20 23:47 Diphenoxylate/Atropine (*Crx) 2.5 Mg Tablet PO BID PRN diarrhea Escitalopram Oxalate 10 mg 10/31/20 09:00 11/06/20 09:57 Escitalopram Oxalate 10 Mg Tablet PO 10 mg DAILY DOT Administration Folic Acid 1 mg 10/31/20 09:00 11/06/20 09:57 Folic Acid 1 Mg Tablet PO 1 mg DAILY DOT Administration Furosemide 40 mg 10/31/20 09:00 11/01/20 09:20 Furosemide 40 Mg Tablet PO 40 mg DAILY DOT Administration Heparin Sodium (Beef Lung) 50 units 11/01/20 09:00 11/06/20 07:58 Heparin Flush 50 Units/5 Ml Syringe IV PUSH 50 units QAM DOT Administration Heparin Sodium (Beef Lung) 50 units 10/31/20 14:47 Heparin Flush 50 Units/5 Ml Syringe IV PUSH PRN PRN after blood draws Heparin Sodium (Beef Lung) 50 units 10/31/20 14:47 11/02/20 06:14 Heparin Flush 50 Units/5 Ml Syringe IV PUSH 50 units PRN PRN Administration after intermittent infusion Heparin Sodium (Porcine) 500 units 10/31/20 14:47 Heparin Sod Flush 500 Units/5 Ml Syringe IV PUSH PRN PRN see comments below Lactated Ringer's 1,000 mls @ 75 mls/hr 10/30/20 14:05 10/31/20 09:20 Lr - Lactated Ringers Iv IV CONT 75 mls/hr .[id number] DOT
--- NOTE | 2020-11-06 15:18 | PCOTNOTE ---
Attempted to see patient this PM for skilled OT session. Patient was asleep upon entry, but easily aroused by light touch and call of name. When asked if participation in therapy could be attempted, patient's eyes fell closed and he stated, I don't want to do anything right now, I want to sleep. Patient refused session this date, will continue per Plan of Care tomorrow.
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
[2020-11-06] MEDS: WARFARIN (*PBKC) 4 MG TABLET PO (17:12)
[2020-11-07] VITALS (20 sets, daily range): BP systolic 108–126; BP diastolic 54–72; PULSE 74–93; RESP 14–20; TEMP 36.2–36.6; O2SAT 90–100
[2020-11-07] MEDS: ALBUTEROL SULFATE NEB 2.5 MG/0.5 ML INH INHALATION ×3 (02:04→14:57)
[2020-11-07] MEDS: IPRATROPIUM BR 0.02% INH SOLN 0.5 MG/2.5 ML VIAL INHALATION ×3 (02:04→14:57)
[2020-11-07] MEDS: CENTRAL LINE FLUSH 10 ML IV PUSH ×3 (05:27→21:50)
[2020-11-07 08:20] LABS: INR 2.1; Prothrombin Time 24.1 Seconds (11.1-14.7)
[2020-11-07] MEDS: BUDESONIDE RESPULE NEB 0.5 MG/2 ML AMP 1 MG INHALATION (08:40)
[2020-11-07] MEDS: CHOLECALCIFEROL 1,000 UNITS TABLET 2000 UNITS PO (09:09)
[2020-11-07] MEDS: ASCORBIC ACID 500 MG TABLET 1000 MG PO (09:09)
[2020-11-07] MEDS: ESCITALOPRAM OXALATE 10 MG TABLET PO (09:09)
[2020-11-07] MEDS: FOLIC ACID 1 MG TABLET PO (09:09)
[2020-11-07] MEDS: PANTOPRAZOLE 40 MG TABLET PO (09:09)
[2020-11-07] MEDS: METOPROLOL TARTRATE 25 MG TABLET PO ×2 (09:09→21:52)
[2020-11-07] MEDS: MONTELUKAST SODIUM 10 MG TABLET PO (09:10)
[2020-11-07] MEDS: NICOTINE (*PBKC) 21 MG PATCH 1 PATCH TRANSDERM (09:10)
[2020-11-07] MEDS: THIAMINE HCL 100 MG TABLET PO (09:10)
[2020-11-07] MEDS: MULTIVITAMINS /C LUTEIN (CENTRUM SILVER) TABLET *BKC 1 TAB PO (09:10)
[2020-11-07 10:14] LABS: Blood Urea Nitrogen 28 mg/dL (9-20); Calcium 9.5 mg/dL (8.4-10.2); Carbon Dioxide > 40 mmol/L (22-30); Chloride 96 mmol/L (98-107); Estimated CRCL calculation 44 ml/min; Estimated Glomerular Filt Rate > 60; Glucose 110 mg/dL (75-110); Potassium 3.3 mmol/L (3.4-5.0); Sodium 143 mmol/L (137-145)
--- NOTE | 2020-11-07 12:40 | PCDIET ---
Nutrition Follow-Up Complete: Nutrition Diagnosis: Inadequate oral intake related to loss of appetite as evidenced by BMI of 18.0 and refusing breakfast. Nutrition Goal: Patient to meet estimated nutritional needs. Goal not met. Patient had been eating fairly well, but has eaten much less for the past couple of days. Attempted to contact patient via phone due to COVID precautions with no answer. Recommend increasing Ensure Enlive to TID and following closely. Recommend K+ replacement, if medically appropriate. Last recorded weight is 58.6 kg which is decreased from last review. Bowel Motility: BM x 1 today. Labs Reviewed: Hgb (10.2), Hct (33.8), BUN (28), K (3.3) Meds Noted: Albuterol, Vitamin C, Pulmicort, Atrovent, Folic Acid, Furosemide, Lopressor, Centrum, Protonix, Vitamin B1, Vancomycin, Vitamin D, Coumadin Additional Notes: No open sores documented. Will continue to monitor with same goal. Nutrition Monitoring and Evaluation: Follow up every 3 days.
--- NOTE | 2020-11-07 13:03 | PM.IMPN ---
Progress Note: A&P Assessment and Plan (1) Sepsis: Code(s): A41.9 - Sepsis, unspecified organism Status: Acute Assessment and Plan: Present on admission with leukocytosis and tachycardia. Related to coag negative staph bacteremia. Symptoms improved. (2) Coagulase negative Staphylococcus bacteremia: Code(s): R78.81 - Bacteremia; B95.7 - Other staphylococcus as the cause of diseases classified elsewhere Status: Acute Assessment and Plan: BCx drawn 10/30 positive for Coag Negative Staph (2of2 bottles). Repeat BCx negative 11/02. Suspect real and possibly related to port. ID consulted and appreciate their input. Echo not performed this admission but not felt necessary given that he is not persistently bacteremia. Plan for 14 days of treatment with Vanco and then repeat BCx. If clear, then do not need to remove port. (3) Acute and chronic respiratory failure with hypercapnia: Code(s): J96.22 - Acute and chronic respiratory failure with hypercapnia Status: Acute Assessment and Plan: Patient had high O2 requirements but improved. Normally on 6L O2 at home. O2 requirement improved. Has NIV at home but does not use according to the notes. Wearing BiPAP intermittently. Will continue to monitor. Pulmonary input appreciated. (4) Community acquired pneumonia: Code(s): J18.9 - Pneumonia, unspecified organism Status: Acute Assessment and Plan: CXR on admission showing extensive bilateral airspace disease with progression. Patient completed 7 days of broad spectrum abx. O2 requirement better and back to baseline. WBC up to 14K possibly related to the steroids but stable. No fevers. Remains on Vanco for the bacteremia. (5) Pulmonary embolism: Code(s): I26.99 - Other pulmonary embolism without acute cor pulmonale Status: Acute Assessment and Plan: Hx of recent PE by CTA 10/01/20. INR elevated so Coumadin held; INR better so Coumadin resumed. INR 2.1 today. Follow with serial INRs (6) Major depressive disorder, recurrent, mild: Code(s): F33.0 - Major depressive disorder, recurrent, mild Status: Acute Assessment and Plan: Mood stable. Contineu curent medications (7) Essential (primary) hypertension: Code(s): I10 - Essential (primary) hypertension Status: Acute Assessment and Plan: Patient's blood pressure was reviewed on 11/07 Blood pressure remains well controlled. Will continue current medications. (8) Anemia: Qualifiers: Anemia type: unspecified type Qualified Code(s): D64.9 - Anemia, unspecified Code(s): D64.9 - Anemia, unspecified Status: Chronic Assessment and Plan: Hemoglobin stable in the 10 range. Check periodically. (9) Person under investigation for severe acute respiratory syndrome coronavirus 2 (SARS-CoV-2) infection: Code(s): Z20.822 - Contact with and (suspected) exposure to COVID-19 Status: Acute Assessment and Plan: COVID 10/31 negative. (10) Atrial fibrillation: Code(s): I48.91 - Unspecified atrial fibrillation Status: Acute Assessment and Plan: Patient with chronic AFib. He was in RVR on admission (related to the sepsis) and given IV digoxin. He was initially continued on his metoprolol, digoxin and diltiazem that he takes at home. The patient is on Coumadin and and we are doing daily INRs. HR soft possibly due to inactivity so Digoxin stopped and Cardizem held. We have continued Metoprolol and HR remains well controlled with this single agent. (11) COPD with acute exacerbation: Onset Date: Unknown Code(s): J44.1 - Chronic obstructive pulmonary disease with (acute) exacerbation Status: Acute Assessment and Plan: No wheezing appreciated. O2 requirement is back to baseline. Patient off Solu-Medrol now. Continue Albuterol, Pulmicort, and Atr
--- NOTE | 2020-11-07 13:35 | PM.PNPUL ---
Progress Note: A&P Assessment and Plan (1) Community acquired pneumonia: Code(s): J18.9 - Pneumonia, unspecified organism Status: Acute Assessment and Plan: This patient appears to have pneumonia with high risk features given his immune compromise station, metastatic lung cancer and overall weakness and debilitation and multiple comorbidities. I agree with broad-spectrum antibiotics. He seems to be responding with decrease in WBCs. continue current antibiotics for a total of 7 days. We will get PT OT involved to get him up and moving around at least up into the chair twice a day. (2) Acute and chronic respiratory failure with hypercapnia: Code(s): J96.22 - Acute and chronic respiratory failure with hypercapnia Status: Acute Assessment and Plan: Acute exacerbation likely due to acute pneumonia. The patient does not tolerate BiPAP or other forms of NIV. According to his he does not even tolerate his home trilogy NIV via nasal pillows. - continue Weaning oxygen to maintain sats 88-92% strictly - can use BiPAP as needed 12/6 with a backup rate of 18 if develops acute respiratory distress. (3) Pulmonary embolism: Code(s): I26.99 - Other pulmonary embolism without acute cor pulmonale Status: Acute (4) COPD with acute exacerbation: Onset Date: Unknown Code(s): J44.1 - Chronic obstructive pulmonary disease with (acute) exacerbation Status: Acute Assessment and Plan: - will discontinue solumedrol today - increase Pulmicort to 1 mg nebulized q.12 hours - decrease albuterol to 2.5 mg q.6 hours scheduled - continue ipratropium 0.5 mg Q 6 hours scheduled. - PT/OT will get involved to help him mobilize. (5) Coagulase negative Staphylococcus bacteremia: Code(s): R78.81 - Bacteremia; B95.7 - Other staphylococcus as the cause of diseases classified elsewhere Status: Acute Assessment and Plan: this is likely real and not a contamination since a groove and 2/2 bottles. Would recommend continuing vancomycin for 14 days from the last positive blood culture. Blood cultures were repeated today. His echocardiogram showed no signs of endocarditis and clinically is not suspected. (6) Metastatic lung carcinoma: Code(s): C78.00 - Secondary malignant neoplasm of unspecified lung Status: Acute Assessment and Plan: Should consider speaking with him regarding DNR code status given his poor state of health and metastatic lung CA. Subjective Date/time seen: 11/07/20 13:35 Interval history: He continues to slowly improve. Confusion is also improving. Systemic steroids have been discontinued and he is now switched to normal nasal cannula at 4-6 L. Review of Systems Review of Systems: All systems reviewed & are unremarkable except as noted in HPI and below Objective Data Vital Signs Vital Signs: Vital Signs - 24 hr 11/06/20 14:00 11/06/20 14:32 11/06/20 14:38 Temperature Pulse Rate 76 81 82 Respiratory Rate 20 20 Blood Pressure Pulse Oximetry 11/06/20 16:00 11/06/20 18:00 11/06/20 19:57 Temperature 35.8 C L 36.4 C Pulse Rate 88 80 91 Respiratory Rate 20 24 H Blood Pressure 130/67 145/74 H Pulse Oximetry 95 97 11/06/20 20:00 11/06/20 21:28 11/06/20 21:49 Temperature Pulse Rate 98 89 90 Respiratory Rate 20 Blood Pressure Pulse Oximetry 92 11/06/20 22:00 11/06/20 23:31 11/06/20 23:35 Temperature Pulse Rate 95 91 Respiratory Rate 20 Blood Pressure Pulse Oximetry 89 L 11/07/20 00:00 11/07/20 00:56 11/07/20 01:25 Temperature Pulse Rate 90 93 Respiratory Rate 20 18 Blood Pressure 111/54 L Pulse Oximetry 100 98 95 11/07/20 02:00 11/07/20 02:04 11/07/20 02:12 Temperature Pulse Rate 74 75 78 Respiratory Rate 20 20 Blood Pressure Pulse Oximetry 11/07/20 04:00 11/07/20 06:00 11/07/20 08:00 Temperature 36.3 C L 36.3 C L Pulse R
--- NOTE | 2020-11-07 13:39 | WPDINFPN2 ---
Progress Note: A&P Assessment and Plan (1) Coagulase negative Staphylococcus bacteremia: Code(s): R78.81 - Bacteremia; B95.7 - Other staphylococcus as the cause of diseases classified elsewhere Status: Acute Assessment and Plan: 1. CNSS port infection (tip) with bacteremia, microbiologic cure. 2. Lung cancer with immunocompromise, no neutropenia 3. Dyspnea, multifactorial, he has been appropriately treated for potential HCAP REC Vanc # 8 / 14 days.Repeat after Vanc is finished (2-3 days after last dose), and if those BCs are also NG then port can stay. Ok discharge to SNF to complete above therapy. Subjective Date/time seen: 11/07/20 13:39 Interval history: feeling better, no subjective fever Exam Narrative: Exam Narrative: afebrile Const: General: no acute distress Resp: Effort & Inspection: normal respiratory effort Auscultation: clear to auscultation bilaterally Cardio: Rate: regular rate Rhythm: regular rhythm Heart sounds: no gallops and no murmurs GI: Inspection: non-distended GI Palp: Yes Soft to palpation and No Tenderness to palpation present (GI) Skin: General skin exam: normal color and no rashes or lesions noted Other: RUE accessed port without skin breakdown and no hematoma nor fluctuance Objective Data Vital Signs Vital Signs: Vital Signs - 24 hr 11/06/20 14:00 11/06/20 14:32 11/06/20 14:38 Temperature Pulse Rate 76 81 82 Respiratory Rate 20 20 Blood Pressure Pulse Oximetry 11/06/20 16:00 11/06/20 18:00 11/06/20 19:57 Temperature 35.8 C L 36.4 C Pulse Rate 88 80 91 Respiratory Rate 20 24 H Blood Pressure 130/67 145/74 H Pulse Oximetry 95 97 11/06/20 20:00 11/06/20 21:28 11/06/20 21:49 Temperature Pulse Rate 98 89 90 Respiratory Rate 20 Blood Pressure Pulse Oximetry 92 11/06/20 22:00 11/06/20 23:31 11/06/20 23:35 Temperature Pulse Rate 95 91 Respiratory Rate 20 Blood Pressure Pulse Oximetry 89 L 11/07/20 00:00 11/07/20 00:56 11/07/20 01:25 Temperature Pulse Rate 90 93 Respiratory Rate 20 18 Blood Pressure 111/54 L Pulse Oximetry 100 98 95 11/07/20 02:00 11/07/20 02:04 11/07/20 02:12 Temperature Pulse Rate 74 75 78 Respiratory Rate 20 20 Blood Pressure Pulse Oximetry 11/07/20 04:00 11/07/20 06:00 11/07/20 08:00 Temperature 36.3 C L 36.3 C L Pulse Rate 93 76 80 Respiratory Rate 16 14 Blood Pressure 118/60 126/66 Pulse Oximetry 96 100 11/07/20 08:42 11/07/20 08:57 11/07/20 10:00 Temperature Pulse Rate 81 89 75 Respiratory Rate 16 16 Blood Pressure Pulse Oximetry 100 11/07/20 12:00 Temperature 36.6 C Pulse Rate 74 Respiratory Rate 14 Blood Pressure 108/61 Pulse Oximetry 93 Intake/Output Intake/Output: Intake & Output 11/04/20 11/05/20 11/06/20 11/07/20 23:59 23:59 23:59 23:59 Intake Total 1740 340 044 5767 Output Total 625 750 600 500 Balance 1115 170 270 560 Meds/Results Medications: Active Medications Generic Name Dose Route Start Last Admin Trade Name Freq PRN Reason Stop Dose Admin Acetazolamide 500 mg 11/07/20 17:00 Acetazolamide Tab 250 Mg Tablet PO BID DOT Albuterol 2.5 mg 11/01/20 20:00 11/07/20 08:40 Albuterol Sulfate Neb 2.5 Mg/0.5 Ml Inh INHALATION 2.5 mg Q6HRT DOT Administration Ascorbic Acid 1,000 mg 10/31/20 09:00 11/07/20 09:09 Ascorbic Acid 500 Mg Tablet PO 1,000 mg DAILY DOT Administration Budesonide 1 mg 11/01/20 20:00 11/07/20 08:40 Budesonide Respule Neb 0.5 Mg/2 Ml Amp INHALATION 1 mg Q12HRT DOT Administration Diltiazem HCl 120 mg 10/31/20 00:35 11/05/20 09:49 Diltiazem Hcl 12 Hr 60 Mg Cap.Er.12h PO Not Given Q12HR DOT Diphenoxylate HCl/Atropine 1 tablet 10/30/20 23:47 Diphenoxylate/Atropine (*Crx) 2.5 Mg Tablet PO BID PRN diarrhea Escitalopram Oxalate 10 mg 10/31/20 09:00 11/07/20 09:09 Escitalopram Oxalate 10 Mg Tablet PO 1
[2020-11-07] MEDS: WARFARIN (*PBKC) 4 MG TABLET PO (17:40)
[2020-11-07] MEDS: acetaZOLAMIDE TAB 250 MG TABLET 500 MG PO (17:40)
[2020-11-07] MEDS: POTASSIUM CHLORIDE 20 MEQ TABLET 40 MEQ PO (18:48)
[2020-11-07] MEDS: HEPARIN SOD FLUSH 500 UNITS/5 ML SYRINGE IV PUSH (18:48)
--- NOTE | 2020-11-07 20:13 | PC.NURSE ---
This patient, uMndo Robles, was transferred to room [facility] on 11/07/20 at 1950. Personal belongings sent with patient. Report given to KANDI Sethi per KANDI Ramires. Appropriate documentation sent with patient.
--- NOTE | 2020-11-07 20:14 | PC.NURSE ---
This patient, Mundo David Robles, was received from [[id number] ] on 11/07/20 at 1955 to Room 328. Patient/family oriented to unit policies and routines
[2020-11-07 21:58] LABS: SARS-CoV-2 RNA PCR Negative
[2020-11-08] VITALS (8 sets, daily range): BP systolic 103–124; BP diastolic 53–87; PULSE 76–112; RESP 16–20; TEMP 36.5; O2SAT 94–100
--- NOTE | 2020-11-08 00:34 | PCRCNOTE ---
Window of time for administration has passed. See next scheduled administration.
[2020-11-08] MEDS: IPRATROPIUM BR 0.02% INH SOLN 0.5 MG/2.5 ML VIAL INHALATION ×3 (01:13→14:19)
[2020-11-08] MEDS: ALBUTEROL SULFATE NEB 2.5 MG/0.5 ML INH INHALATION ×3 (01:14→14:19)
--- NOTE | 2020-11-08 02:30 | PC.NURSE ---
called pharmacy to verify that pt is still receiving Vancomycin even though trough level was 20.5 on 11/06. Pharmacist gave go ahead because frequency on vanc was changed to q18hr. -AEW
[2020-11-08] MEDS: CENTRAL LINE FLUSH 10 ML IV PUSH ×2 (05:27→14:10)
[2020-11-08 05:44] LABS: INR 2.2; Prothrombin Time 25.4 Seconds (11.1-14.7)
[2020-11-08 08:42] LABS: Vancomycin Trough 24.2 ug/mL (10.0-20.0)
[2020-11-08] MEDS: CHOLECALCIFEROL 1,000 UNITS TABLET 2000 UNITS PO (08:48)
[2020-11-08] MEDS: METOPROLOL TARTRATE 25 MG TABLET PO (08:49)
[2020-11-08] MEDS: MULTIVITAMINS /C LUTEIN (CENTRUM SILVER) TABLET *BKC 1 TAB PO (08:50)
[2020-11-08] MEDS: NICOTINE (*PBKC) 21 MG PATCH 1 PATCH TRANSDERM (08:50)
[2020-11-08] MEDS: PANTOPRAZOLE 40 MG TABLET PO (08:50)
[2020-11-08] MEDS: ASCORBIC ACID 500 MG TABLET 1000 MG PO (08:50)
[2020-11-08] MEDS: acetaZOLAMIDE TAB 250 MG TABLET 500 MG PO ×2 (08:50→17:05)
[2020-11-08] MEDS: MONTELUKAST SODIUM 10 MG TABLET PO (08:50)
[2020-11-08] MEDS: THIAMINE HCL 100 MG TABLET PO (08:51)
[2020-11-08] MEDS: ESCITALOPRAM OXALATE 10 MG TABLET PO (08:51)
[2020-11-08] MEDS: FOLIC ACID 1 MG TABLET PO (08:51)
[2020-11-08] MEDS: BUDESONIDE RESPULE NEB 0.5 MG/2 ML AMP 1 MG INHALATION (09:24)
--- NOTE | 2020-11-08 12:21 | PM.DS ---
DS: Admitting Diagnosis Admitting Diagnosis Admitting Diagnosis: shortness of breath and increasing weakness over last 3 days. DS: Discharge Diagnosis Discharge Diagnosis (1) Sepsis: Code(s): A41.9 - Sepsis, unspecified organism Status: Acute Assessment and Plan: Present on admission with leukocytosis and tachycardia. Related to coag negative staph bacteremia. Symptoms improved with appropriate treatment. (2) Coagulase negative Staphylococcus bacteremia: Code(s): R78.81 - Bacteremia; B95.7 - Other staphylococcus as the cause of diseases classified elsewhere Status: Acute Assessment and Plan: BCx drawn 10/30 were positive for Coag Negative Staph (2of2 bottles). Repeat BCx negative 11/02. Suspect real and possibly related to port. ID consulted. Echo not performed this admission but not felt necessary given that he is not persistently bacteremia. Plan for 14 days of treatment with Vanco and then repeat BCx 2-3 days off antibiotics. If clear, then do not need to remove port. The Vanco trough draw on 11/08/20 at 0752 was inaccurate. Spoke with pharmacy. They recommended continuing the same dose and repeat trough prior to next dose at 3PM on 11/09/20. Orders placed with results to Dr Luna. (3) Acute and chronic respiratory failure with hypercapnia: Code(s): J96.22 - Acute and chronic respiratory failure with hypercapnia Status: Acute Assessment and Plan: Patient had high O2 requirements but improved. Normally on 6L O2 at home. O2 requirement improved and he is down to 5L. Has NIV at home but does not use according to the notes. Wearing BiPAP intermittently. Pulmonary ws involved in his care. Case Management state that the SNF can not do nebulizer treatments at the facility. Will change to inhalers. (4) Community acquired pneumonia: Code(s): J18.9 - Pneumonia, unspecified organism Status: Acute Assessment and Plan: CXR on admission showing extensive bilateral airspace disease with progression. Patient completed 7 days of broad spectrum abx. O2 requirement better and back to baseline. WBC up to 14K possibly related to the steroids but stable. No fevers. Remains on Vanco for the bacteremia. (5) Pulmonary embolism: Code(s): I26.99 - Other pulmonary embolism without acute cor pulmonale Status: Acute Assessment and Plan: Hx of recent PE by CTA 10/01/20. INR elevated so Coumadin held; INR better so Coumadin resumed. INR 2.2 today. Follow with serial INR at the SNF. (6) Major depressive disorder, recurrent, mild: Code(s): F33.0 - Major depressive disorder, recurrent, mild Status: Acute Assessment and Plan: Mood remained stable. We continued current medications (7) Essential (primary) hypertension: Code(s): I10 - Essential (primary) hypertension Status: Acute Assessment and Plan: Patient's blood pressure was monitored closely. Blood pressure remained well controlled. (8) Anemia: Qualifiers: Anemia type: unspecified type Qualified Code(s): D64.9 - Anemia, unspecified Code(s): D64.9 - Anemia, unspecified Status: Chronic Assessment and Plan: Hemoglobin 7.8 on admission and it dropped to 6.8. He was transfused a total of 2U PRBC during his hospital course. Hgb climbed to 10 range and there it remained stable. (9) Person under investigation for severe acute respiratory syndrome coronavirus 2 (SARS-CoV-2) infection: Code(s): Z20.822 - Contact with and (suspected) exposure to COVID-19 Status: Acute Assessment and Plan: COVID 10/31 and 11/07 negative. (10) Atrial fibrillation: Code(s): I48.91 - Unspecified atrial fibrillation Status: Acute Assessment and Plan: Patient with chronic AFib. He was in RVR on admission (related to the sepsis) and given IV digoxin. He was initially continued
--- NOTE | 2020-11-08 15:16 | PC.NURSE ---
Clarified pulmonary meds with Wendy. Telephone readback performed from discharge packet. All meds in discharge packet as he would like. Proceeding with discharge.
[2020-11-08] MEDS: WARFARIN (*PBKC) 4 MG TABLET PO (17:05)
== END 2020-11-08 18:10 | DRG 871 ==
LOC: ANHED 14:03 → ANHIMU 18:51 → ANH3MEDSUR 11-07 19:53
PROVIDERS: Emergency Medicine Emergency Medical Services; Family Medicine; Internal Medicine; Internal Medicine Critical Care Medicine; Internal Medicine Pulmonary Disease; Nurse Practitioner; Admitting Provider Internal Medicine; Emergency Provider Emergency Medicine; PCP Family Medicine; Visit Provider Internal Medicine
DX: A41.1 Sepsis due to other specified staphylococcus (principal); J96.22 Acute and chronic respiratory failure with hypercapnia; I26.99 Other pulmonary embolism without acute cor pulmonale; J18.9 Pneumonia, unspecified organism; C34.90 Malignant neoplasm of unspecified part of unspecified bronchus or lung; I48.20 Chronic atrial fibrillation, unspecified; F33.0 Major depressive disorder, recurrent, mild; I50.32 Chronic diastolic (congestive) heart failure; J96.11 Chronic respiratory failure with hypoxia; E27.40 Unspecified adrenocortical insufficiency; C78.00 Secondary malignant neoplasm of unspecified lung; I11.0 Hypertensive heart disease with heart failure; J43.1 Panlobular emphysema; Z20.822 Contact with and (suspected) exposure to COVID-19; Z66 Do not resuscitate; F17.210 Nicotine dependence, cigarettes, uncomplicated; G47.33 Obstructive sleep apnea (adult) (pediatric); F03.90 Unspecified dementia, unspecified severity, without behavioral disturbance, psychotic disturbance, mood disturbance, and anxiety; F41.9 Anxiety disorder, unspecified; D64.9 Anemia, unspecified; N40.0 Benign prostatic hyperplasia without lower urinary tract symptoms; K21.9 Gastro-esophageal reflux disease without esophagitis; Z79.01 Long term (current) use of anticoagulants; Z79.899 Other long term (current) drug therapy; Z95.828 Presence of other vascular implants and grafts; Z87.11 Personal history of peptic ulcer disease; Z99.81 Dependence on supplemental oxygen
CPT/HCPCS: 36415; 36430; 36600; 71045; 80048; 80053; 80202; 81001; 82375; 82565; 82805; 83050; 83605; 83615; 83735; 83880; 84100; 84484; 85014; 85018; 85025; 85027; 85610; 85730; 86850; 86900; 86901; 86923; 87040; 87077; 87086; 87186; 87804; 93005; 94002; 94003; 94640; 96365; 96375; 97110; 97161; 97165; 97530; 97535; 99291; A9270; C9803; J0456; J0696; J1160; J1642; J1956; J2060; J2543; J2920; J2930; J3370; J7050; J7120; P9016; U0003; U0005